=== PATIENT | female | born 1995 | race Caucasian/White ===

== ENCOUNTER 2023-03-09 12:36 | Emergency (ER) | payer MEDICAID, SELFPAY ==
[2023-03-09 12:50] VITALS: BP 126/72; PULSE 82; RESP 20; TEMP 36.7; O2SAT 100; BMI 46.1
[2023-03-09 13:16] LABS: Bilirubin Urine NEGATIVE (NEGATIVE); Blood Urine NEGATIVE (NEGATIVE); Clarity Urine CLEAR (CLEAR); Color Urine YELLOW (YELLOW); Glucose Urine UA NEGATIVE (NEGATIVE); Ketones Urine 15 mg/dL (NEGATIVE); Leukocyte Esterase Urine NEGATIVE (NEGATIVE); Nitrite Urine NEGATIVE (NEGATIVE); Protein Urine NEGATIVE (NEG/TRACE); Specific Gravity Urine >=1.030 (1.005-1.025); Urobilinogen Urine 0.2 EU/dL (0.2-1.0)
[2023-03-09 13:19] LABS: HCG Qualitative Urine* POSITIVE (NEGATIVE); Urine Microscopic Indicated NO
--- NOTE | 2023-03-09 13:35 | US_ITS ---
[address] [address] Patient Name: THERESA SU MRN: [id number] date: 1995 Sex: F Assigned Patient Location: ED.MAIN Current Patient Location: ER Accession/Order Number: [id number] Exam Date: 03/09/2023 13:36 Report Date: 03/09/2023 14:21 At the request of: AUSTIN MCHUGH Procedure: US OB transvaginal EXAMINATION: US OB transvaginal HISTORY: abdominal pain COMPARISON: No relevant comparison available. FINDINGS: Anguiano intrauterine gestation Gestational sac: 3.92 cm, 9 weeks 2 days CRL: 2.3 cm centimeters, 9 weeks 0 days Yolk sac: 2.5 mm Heart rate: 166 bpm Cervix: Closed, 3.8 cm The uterus is normal in appearance. The ovaries are normal in appearance. Clinical age: 9 weeks 5 days Clinical ASHLEY: 10/07/2023 Ultrasound age: 9 weeks 0 days Ultrasound ASHLEY: 10/12/2023 US/US OB transvaginal IMPRESSION: Viable anguiano intrauterine gestation measuring 9 weeks 0 days Electronically authenticated by: DIAMANTE ALDRICH Date: 03/09/2023 14:21
--- NOTE | 2023-03-09 13:39 | ED.GENADUL1 ---
HPI - General Adult General Chief complaint: Abdominal Pain Stated complaint: STOMACH PAIN Time Seen by Provider: 03/09/23 13:26 Source: patient Mode of arrival: walk-in Limitations: no limitations History of Present Illness HPI narrative: Patient is a 27-year-old female presents to the Emergency Room with concerns of nausea and vomiting. Patient states for the past few days she has had heightened sensitivity to smells which leads to nausea and vomiting. She denies diarrhea. She's had abdominal cramping on and off with symptoms. She denies any vaginal discharge or drainage. States she has not had a menstrual cycle in two months. Patient is with urine test today positive last menstrual cycle 01/04/23 estimated at nine weeks one day. Patient denies any chest pain or shortness of breath. Admits to having 1st trimester nausea and vomiting with prior pregnancies. She appears no distress but reports minimal appetite today. Related Data Home Medications Medication Instructions Recorded Confirmed No Known Home Medications 03/09/23 03/09/23 Previous Rx's Medication Instructions Recorded ondansetron HCl 4 mg tablet 4 mg PO Q6H PRN nausea and 03/09/23 vomiting #12 tabs Allergies Allergy/AdvReac Type Severity Reaction Status Date / Time No Known Drug Allergies Allergy Verified 03/09/23 12:49 Review of Systems ROS Constitutional Denies: fever or chills Eyes Denies: change in vision or blurry vision Ears, nose, mouth, and throat Denies: throat pain or neck pain Cardiovascular Denies: chest pain or palpitations Respiratory Denies: shortness of breath or cough Gastrointestinal Reports: abdominal pain, nausea and vomiting Genitourinary Denies: painful urination Musculoskeletal Denies: back pain Integumentary/Breast Denies: rash Neurological Denies: headache Psychiatric Denies: anxiety Allergic/Immunologic Denies: hives PFSH PFSH Social History Smoking status: Heavy tobacco smoker Exam Narrative Exam Narrative: Nurses notes and vital signs reviewed and patient is not hypoxic. General: The patient appears well and in no apparent distress. Patient is resting comfortably on cart. Skin: Warm, dry, no pallor noted. No evidence of rash Head: Normocephalic, atraumatic Neck: Supple, trachea mid-line, no tenderness, no lymphadenopathy Eye: Pupils are equal, round and reactive to light, EOMI Ears, Nose, Mouth, and Throat: TM are clear, normal light reflex, oral mucosa is moist, no posterior oropharynx erythema or hypertrophy, uvula is mid-line Cardiovascular: Regular Rate and Rhythm Respiratory: Patient is in no distress, no accessory muscle use, lungs are clear to auscultation, no wheezing, rales or rhonchi. Chest Wall: no tenderness Back: non-tender, no CVA tenderness Musculoskeletal: normal ROM, no tenderness, no swelling GI: Normal bowel sounds, no tenderness to palpation, no masses appreciated. No rebound, guarding, or rigidity noted. Neurological: A&O x4 Psychiatric: Cooperative Constitutional Vital Signs, click to edit/add: Last Vital Signs Temp 98.1 F 03/09/23 12:50 Pulse 82 03/09/23 12:50 Resp 20 03/09/23 12:50 BP 126/72 03/09/23 12:50 Pulse Ox 100 03/09/23 12:50 O2 Del Method Room Air 03/09/23 12:50 Course Vital Signs Vital signs: Vital Signs Temperature 98.1 F 03/09/23 12:50 Pulse Rate 82 03/09/23 12:50 Respiratory Rate 20 03/09/23 12:50 Blood Pressure 126/72 03/09/23 12:50 Pulse Oximetry 100 03/09/23 12:50 Oxygen Delivery Method Room Air 03/09/23 12:50 Temperature 98.1 F 03/09/23 12:50 Pulse Rate 82 03/09/23 12:50 Respiratory Rate 20 03/09/23 12:50 Blood Pressure 126/72 03/09/23 12:50 Pulse Oximetry 100 03/09/23 12:50 Oxygen Delivery Method Room Air 03/09/23 12:50 Medical Decision Making [facility] Narrative Medical decision making narrative: Patient presents with nausea and vomiting presumably in 1st trimester . Patient was unaware that she was , quantitative hCG ordered along with ultrasound given abdominal cramping. Patient medicated with IV fluids 1 L and Zofran 4 mg with risks and benefits discussed at bedside. Lab Data Labs: Lab Results 03/09/23 03/09/23 Range/Units 12:57 13:50 WBC 12.4 H (4.0-11.0) 10^3/uL RBC 3.91 L (4.20-5.40) 10^6/uL Hgb 12.7 (12.0-16.0) g/dL Hct 36.9 (36.0-48.0) % MCV 94.4 (81.0-99.0) fL MCH 32.5 (26.7-34.0) pg MCHC 34.4 (29.9-35.2) g/dL RDW 12.6 (11.0-15.0) % Plt Count 236 (150-450) 10^3/uL MPV 10.9 (9.5-13.5) fL Neut % (Auto) 78.3 H (43.0-75.0) % Lymph % (Auto) 12.3 L (20.5-60.0) % Glasscock % (Auto) 7.8 (1.7-12.0) % Eos % (Auto) 1.1 (0.9-7.0) % Baso % (Auto) 0.2 (0.2-2.0) % Neut # (Auto) 9.7 H (1.4-6.5) 10^3/uL Lymph # (Auto) 1.5 (1.2-3.8) 10^3/uL Glasscock # (Auto) 1.0 H (0.3-0.8) 10^3/uL Eos # (Auto) 0.1 (0.0-0.7) 10^3/uL Baso # (Auto) 0.0 (0.0-0.1) 10^3/uL Abs Immat Gran (auto) 0.04 H (0.00-0.03) 10^3/uL Imm/Tot Granulo (auto) 0.3 (0.0-0.5) % Sodium 135 L (136-145) mmol/L Potassium 3.5 (3.5-5.1) mmol/L Chloride 102 (98-107) mmol/L Carbon Dioxide 23.5 (21.0-32.0) mmol/L Anion Gap 13.0 BUN 7.0 (7.0-18.0) mg/dL Creatinine 0.65 (0.55-1.02) mg/dL Est GFR ( Amer) >60 (>=60) Est GFR (Non-Af Amer) >60 (>=60) BUN/Creatinine Ratio 10.8 Glucose 90 (74-106) mg/dL Calcium 8.8 (8.5-10.1) mg/dL Total Bilirubin 0.6 (0.2-1.0) mg/dL AST 14 L (15-37) U/L ALT 21 (14-59) U/L Alkaline Phosphatase 74 (46-116) U/L Total Protein 6.9 (6.4-8.2) g/dL Albumin 3.5 (3.4-5.0) g/dL Globulin 3.4 g/dL Albumin/Globulin Ratio 1.0 Lipase 67.0 L (73.0-393.0) U/L HCG, Quant 02465 mIU/mL Urine Color Yellow (YELLOW) Urine Clarity Clear (CLEAR) Urine pH 6.0 (5.0-9.0) Ur Specific Whitwell >=1.030 A (1.005-1.025) Urine Protein Negative (NEG/TRACE) mg/dL Urine Glucose (UA) Negative (NEGATIVE) mg/dL Urine Ketones 15 A (NEGATIVE) mg/dL Urine Occult Blood Negative (NEGATIVE) Urine Nitrite Negative (NEGATIVE) Urine Bilirubin Negative (NEGATIVE) Urine Urobilinogen 0.2 (0.2-1.0) EU/dL Ur Leukocyte Esterase Negative (NEGATIVE) Urine HCG, Qual Positive A (NEGATIVE) Imaging Data US - abdomen: Radiologist's impression: Procedure: US OB transvaginal EXAMINATION: US OB transvaginal HISTORY: abdominal pain COMPARISON: No relevant comparison available. FINDINGS: Gutiérrez intrauterine gestation Gestational sac: 3.92 cm, 9 weeks 2 days CRL: 2.3 cm centimeters, 9 weeks 0 days Yolk sac: 2.5 mm Heart rate: 166 bpm Cervix: Closed, 3.8 cm The uterus is normal in appearance. The ovaries are normal in appearance. Clinical age: 9 weeks 5 days Clinical ASHLEY: 10/07/2023 Ultrasound age: 9 weeks 0 days Ultrasound ASHLEY: 10/12/2023 IMPRESSION: Viable gutiérrez intrauterine gestation measuring 9 weeks 0 days Electronically authenticated by: DIAMANTE ALDRICH Date: 03/09/2023 14:21 Discharge Plan Discharge Chief Complaint: Abdominal Pain Clinical Impression: Nausea and vomiting in Patient Disposition: Home, Self-Care Time of Disposition Decision: 14:54 Condition: Good Mode of Transportation: Private Vehicle Prescriptions / Home Meds: New ondansetron HCl 4 mg tablet 4 mg PO Q6H PRN (Reason: nausea and vomiting) Qty: 12 0RF No Action No Known Home Medications Instructions: Nausea and Vomiting in (ED) Stand Alone Forms: Portal Instructions Referrals: Luis Majano DO [Physician] - 1 week Discharge Date/Time: 03/09/23 15:13
[2023-03-09] MEDS: 0.9 % SODIUM CHLORIDE 1,000 ML 999 ML IV (13:50)
[2023-03-09] MEDS: ONDANSETRON PF 4 MG/2 ML VIAL IV (13:51)
[2023-03-09 14:36] LABS: Basophils Percent Auto 0.2 % (0.2-2.0); Eosinophils Absolute Auto 0.1 10^3/uL (0.0-0.7); Eosinophils Percent Auto 1.1 % (0.9-7.0); Hematocrit 36.9 % (36.0-48.0); Hemoglobin 12.7 g/dL (12.0-16.0); Immature Granulocytes Abs Auto 0.04 10^3/uL (0.00-0.03); Immature Granulocytes Pct Auto 0.3 % (0.0-0.5); Lymphocytes Absolute Auto 1.5 10^3/uL (1.2-3.8); Lymphocytes Percent Auto 12.3 % (20.5-60.0); Mean Corpuscular HGB Conc 34.4 g/dL (29.9-35.2); Mean Corpuscular Hemoglobin 32.5 pg (26.7-34.0); Mean Corpuscular Volume 94.4 fL (81.0-99.0); Mean Platelet Volume 10.9 fL (9.5-13.5); Monocytes Percent Auto 7.8 % (1.7-12.0); Neutrophils Absolute Auto 9.7 10^3/uL (1.4-6.5); Neutrophils Percent Auto 78.3 % (43.0-75.0); Platelet Count 236 10^3/uL (150-450); Red Blood Count 3.91 10^6/uL (4.20-5.40); Red Cell Distribution Width 12.6 % (11.0-15.0); White Blood Count 12.4 10^3/uL (4.0-11.0)
[2023-03-09 14:58] LABS: Alanine Aminotransferase 21 U/L (14-59); Albumin Level 3.5 g/dL (3.4-5.0); Alkaline Phosphatase 74 U/L (46-116); Aspartate Amino Transferase 14 U/L (15-37); BUN Creatinine Ratio 10.8; Bilirubin Total 0.6 mg/dL (0.2-1.0); Calcium 8.8 mg/dL (8.5-10.1); Carbon Dioxide 23.5 mmol/L (21.0-32.0); Chloride 102 mmol/L (98-107); Estimated GFR (African America >60 (>=60); Estimated GFR (Non-African Ame >60 (>=60); Globulin 3.4 g/dL; Glucose 90 mg/dL (74-106); Potassium 3.5 mmol/L (3.5-5.1); Sodium 135 mmol/L (136-145); Total Protein 6.9 g/dL (6.4-8.2)
== END 2023-03-09 15:13 | disposition home or self-care (01) ==
PROVIDERS: Personal Emergency Response Attendant; Emergency Provider Emergency Medicine Emergency Medical Services
DX: O26.891 Other specified pregnancy related conditions, first trimester (principal); R11.2 Nausea with vomiting, unspecified; O99.331 Smoking (tobacco) complicating pregnancy, first trimester; F17.210 Nicotine dependence, cigarettes, uncomplicated; Z3A.09 9 weeks gestation of pregnancy
CPT/HCPCS: 36415; 76817; 80053; 81003; 83690; 84702; 84703; 85025; 96361; 96374; 99285

== ENCOUNTER 2023-03-13 12:24 | Outpatient (RCR) | payer BC, MEDICAID, SELFPAY ==
[2023-03-15 14:21] LABS: HCG Quantitative 27211 mIU/mL
== END 2023-03-22 17:49 | disposition home or self-care (01) ==
LOC: LAB 12:24
PROVIDERS: Visit Provider Obstetrics & Gynecology
DX: N92.6 Irregular menstruation, unspecified (principal)
CPT/HCPCS: 36415; 84702

== ENCOUNTER 2023-03-17 14:00 | Outpatient (OUT) | payer MEDICAID, SELFPAY ==
--- NOTE | 2023-03-17 14:03 | US_ITS ---
[address] [address] Patient Name: THERESA SU MRN: [id number] date: 1995 Sex: F Assigned Patient Location: US Current Patient Location: Accession/Order Number: [id number] Exam Date: 03/17/2023 14:10 Report Date: 03/19/2023 17:05 At the request of: WENCESLAO FRASER Procedure: US OB transvaginal EXAMINATION: US OB transvaginal HISTORY: MISSED MENSES N92.6 HX OF MISCARRIAGE Z87.59 COMPARISON: 03/09/2023 FINDINGS: Anguiano intrauterine gestation Gestational sac: 4.35 cm, 9 weeks 6 days CRL: 3.3 cm, 10 weeks 2 days Yolk sac: 3.9 mm Heart rate: 153 beats minute The uterus is normal, anteverted, retroflexed The right ovary is not visualized. The left ovary is normal Cervix: Closed, 4.1 cm, small amount of fluid identified within the endocervical canal Clinical age: 10 weeks 6 days Clinical ASHLEY: 10/07/2023 Ultrasound age: 10 weeks 1 day Ultrasound ASHLEY: 10/12/2023 US/US OB transvaginal IMPRESSION: Viable anguiano intrauterine gestation measuring 10 weeks 1 day Electronically authenticated by: DIAMANTE ALDRICH Date: 03/19/2023 17:05
== END 2023-03-17 14:01 | disposition home or self-care (01) ==
LOC: US 14:01
PROVIDERS: Visit Provider Obstetrics & Gynecology
DX: Z34.91 Encounter for supervision of normal pregnancy, unspecified, first trimester (principal); N92.6 Irregular menstruation, unspecified; Z87.59 Personal history of other complications of pregnancy, childbirth and the puerperium
CPT/HCPCS: 76817

== ENCOUNTER 2023-04-06 10:46 | Outpatient (OUT) | payer BC, MEDICAID, SELFPAY ==
[2023-04-06 11:48] LABS: Basophils Percent Auto 0.2 % (0.2-2.0); Eosinophils Absolute Auto 0.2 10^3/uL (0.0-0.7); Eosinophils Percent Auto 1.9 % (0.9-7.0); Hematocrit 34.2 % (36.0-48.0); Hemoglobin 11.6 g/dL (12.0-16.0); Immature Granulocytes Abs Auto 0.04 10^3/uL (0.00-0.03); Immature Granulocytes Pct Auto 0.3 % (0.0-0.5); Lymphocytes Absolute Auto 2.3 10^3/uL (1.2-3.8); Lymphocytes Percent Auto 17.9 % (20.5-60.0); Mean Corpuscular HGB Conc 33.9 g/dL (29.9-35.2); Mean Corpuscular Hemoglobin 32.9 pg (26.7-34.0); Mean Corpuscular Volume 96.9 fL (81.0-99.0); Mean Platelet Volume 11.2 fL (9.5-13.5); Neutrophils Absolute Auto 9.1 10^3/uL (1.4-6.5); Neutrophils Percent Auto 71.7 % (43.0-75.0); Platelet Count 228 10^3/uL (150-450); Red Blood Count 3.53 10^6/uL (4.20-5.40); Red Cell Distribution Width 12.9 % (11.0-15.0); White Blood Count 12.7 10^3/uL (4.0-11.0)
[2023-04-06 11:56] LABS: Estimated Average Glucose 103 mg/dL; Glycohemoglobin A1C 5.2 % (4.5-6.2)
[2023-04-06 11:59] LABS: BOX Test Sent Out Y
[2023-04-06 12:35] LABS: Thyroid Stimulating Hormone 1.795 uIU/mL (0.358-3.740)
[2023-04-07 06:09] LABS: HBsAg Screen Negative (Negative); HCV Ab Non Reactive (Non Reactive); HIV Ab/p24 Ag Screen Non Reactive (Non Reactive); Rubella Antibodies, IgG 3.26 index (Immune >0.99)
[2023-04-07 10:08] LABS: Rapid Plasma Reagin, Quant Non Reactive titer (NonRea<1:1)
== END 2023-04-06 10:47 | disposition home or self-care (01) ==
LOC: LAB 10:48
PROVIDERS: Visit Provider Obstetrics & Gynecology
DX: Z34.80 Encounter for supervision of other normal pregnancy, unspecified trimester (principal); N92.6 Irregular menstruation, unspecified
CPT/HCPCS: 36415; 83036; 84443; 85025; 86592; 86762; 86803; 86850; 86900; 86901; 87086; 87340; 87389

== ENCOUNTER 2023-05-09 10:56 | Outpatient (OUT) | payer MEDICAID, SELFPAY ==
[2023-10-19 10:46] LABS: Results Report
[2023-10-19 10:47] LABS: Insulin Dep Diabetes No; OSBR Risk 1 IN 1802
== END 2023-05-09 10:57 | disposition home or self-care (01) ==
LOC: LAB 10:58
PROVIDERS: Visit Provider Obstetrics & Gynecology
DX: Z34.92 Encounter for supervision of normal pregnancy, unspecified, second trimester (principal)
CPT/HCPCS: 36415; 82105

== ENCOUNTER 2023-05-09 21:41 | Outpatient (REF) | payer BC, MEDICAID, SELFPAY ==
[2023-05-14 12:12] LABS: Age Gdln ACOG Testing Note (.); IGP, rfx Aptima HPV ASCU Note (.)
== END 2023-05-09 21:42 | disposition home or self-care (01) ==
LOC: LAB 21:41
PROVIDERS: Visit Provider Obstetrics & Gynecology
DX: Z34.92 Encounter for supervision of normal pregnancy, unspecified, second trimester (principal); Z01.419 Encounter for gynecological examination (general) (routine) without abnormal findings
CPT/HCPCS: 36415; 82105; G0145

== ENCOUNTER 2023-07-11 13:35 | Observation (INO) | payer BC, MEDICAID, SELFPAY ==
[2023-07-11 13:57] VITALS: BP 124/59; PULSE 78
== END 2023-07-11 15:40 | disposition home or self-care (01) ==
LOC: FBC 13:38
PROVIDERS: Admitting Provider Obstetrics & Gynecology; Visit Provider Obstetrics & Gynecology
DX: O36.8190 Decreased fetal movements, unspecified trimester, not applicable or unspecified (principal); Z3A.00 Weeks of gestation of pregnancy not specified
CPT/HCPCS: 59025; G0378; G0379

== ENCOUNTER 2023-07-28 10:45 | Outpatient (OUT) | payer BC, MEDICAID, SELFPAY ==
--- OUTSIDE RECORDS SUMMARY | 2023-07-28 10:50 | XMS_ITS | CCD ---
Author Name Unknown Address [address] [place] [address] [address] [place] [address] Organization [facility] Care Team Providers Care Hemmer Lockstitch Name Role Phone [facility] Primary Care Unavailable MAREK FLOOD Admitting Unavailable MAREK FLOOD Attending Unavailable MAREK FLOOD Consulting Unavailable [facility] Primary Care Unavailable EB GRANT Admitting Unavailable EB GRANT Attending Unavailable EB GRANT Consulting Unavailable YOHANA UGALDE Consulting Unavailable MELANIE CHOU Attending Unavailable WENCESLAO FRASER Attending Unavailable Problems Active Problems Problem Classification Problem Date Documented Da te Episodic/Chronic Asthma (2 sources) Unspecified asthma, uncomplicated; Translations: [UNSPECIFIED ASTHMA UNCOMPLICATED] Onset: 03-07-2022 Chronic Other aftercare (1 source) Other long term care administrator (current) drug therapy; Translations: [OTH INVESTIGATIVE ANALYST CURRENT DRUG THERAPY] Onset: 09-05-2022 Episodic Other aftercare (1 source) long term care administrator (current) use of oral hypoglycemic drugs; Translations: [INVESTIGATIVE ANALYST USE ORAL HYPOGLYCEMIC DX] Onset: 09-05-2022 Episodic Substance-related disorders (1 source) Nicotine dependence, cigarettes, uncomplicated; Translations: [NICOTINE DEPEND CIGARETTES UNCOMP] Onset: 09-05-2022 Chronic Unclassified (3 sources) LOW BACK PAIN, UNSPECIFIED; Translations: [LOW BACK PAIN, UNSPECIFIED] Onset: 09-05-2022 Unclassified (2 sources) COUGH, UNSPECIFIED; Translations: [COUGH, UNSPECIFIED] Onset: 03-07-2022 Unclassified (1 source) CONTACT W/AND (SUSP) EXPOS COVID-19; Translations: [CONTACT W/AND (SUSP) EXPOS COVID-19] Onset: 03-07-2022 Viral infection (1 source) Disease caused by 2019-nCoV; Translations: [UNVACCINATED COVID 19] Onset: 03-07-2022 Past or Other Problems Problem Classification Problem Date Documented Da te Episodic/Chronic Unclassified (1 source) LOW BACK PAIN, UNSPECIFIED; Translations: [LOW BACK PAIN, UNSPECIFIED] Onset: 09-03-2022 Unclassified (1 source) COUGH, UNSPECIFIED; Translations: [COUGH, UNSPECIFIED] Onset: 03-06-2022 Results Test Name Value Interpretation Reference Range Facil ity Covid-19 PCR (CVDTB)on 02-20 SARS-CoV-2 (COVID-19) RNA HERIBERTO+probe Ql (Unsp spec) Not detected Normal NOT DETECTED [facility] Comment on above: Result Comment: When diagnostic testing is negative, the possibility of a false negative should be considered in the context of a patient's recent exposures and the presence of clinical signs and symptoms consistent with SARS-CoV-2. This test is not yet approved or cleared by the [place] FDA. When there are no FDA-approved or cleared tests available, and other criteria are met, FDA can make tests available under an emergency access mechanism called an Emergency Use Authorization (EUA). The EUA for this test is supported by the [place] of Health and Human Service's declaration that circumstances exist to justify the emergency use of in vitro diagnostics for the detection and/or diagnosis of the virus that causes COVID-19. This EUA will remain in effect for the duration of the COVID-19 declaration justifying emergency of IVDs, unless it is terminated or revoked by the FDA (after which the test may no longer be used). Performed By: #### C VDTBH #### [facility] [address] [place] [address] Dr. Rian Vega INFLUENZA A AND B AGon 03-06 INFLUANEGH SEE BELOW Normal [facility] Comment on above: Result Comment: Nega tive for Flu A protein angiten. Infection due to Flu A cannot be ruled out. Flu A angiten in the sample may be below the detection limit of the test. Performed By: #### I NFLUAB #### [facility] [address] [place] [address] Dr. Rian Vega INFLUBNEG SEE BELOW Normal [facility] Comment on above: Result Comment: Nega tive for Flu B protein antigen. Infection due to Flu B cannot be ruled out. Flu B antigen in the sample may be below the detection limit of the test. Performed By: #### I NFLUAB #### [facility] [address] [address] [address] Rian Vega INFLUENZA A AG Negative Normal NEGATIVE SEE COMMENT [facility] Comment on above: Performed By: #### I NFLUAB #### [facility] [address] [address] [address] Rian Vega INFLUENZA B AG Negative Normal NEGATIVE SEE COMMENT [facility] Comment on above: Performed By: #### I NFLUAB #### [facility] [address] [address] [address] Rian Vega INTERNAL CONTROLS Within Normal Limits Normal Wi thin Normal Limits [facility] Comment on above: Performed By: #### I NFLUAB #### [facility] [address] [place] [address] Dr. Rian Vega URon 03-06-2022 , QUAL Negative Normal NEGATIVE [facility] Comment on above: Performed By: #### P REGU #### [facility] [address] [place] [address] Dr. Rian Vega Encounters Encounter Date Encounter Type Care Provider Facility Start: 07-12-2023 End: 07-12-2023 ambulatory WENCESLAO FRASER Not Available Start: 06-06-2023 End: 06-06-2023 ambulatory MELANIE CHOU Not Available Start: 09-03-2022 End: 09-03-2022 ambulatory [facility] Facili ty:H1 Start: 03-06-2022 End: 03-06-2022 ambulatory [facility] Facili ty:H1 Payers Date Payer Category Payer Unknown [id number] 2022 Unknown [id number] 1995 Unknown [id number] 1995 Unknown [id number] 1995 Unknown [id number] 1995 Unknown [id number] 1959 Unknown [id number] Self-pay Self Pay [id number] Unknown Self Pay [id number] Social History Date Type Detail Facility Tobacco smoking stat [facility] Unknown if ever smoked [facility] Start: 1995 Sex Assigned At Female F [facility] Clinical Note 03-06-2022 Note Date & Type Note Facility 03-06-2022 Note PROCEDURE: XR CHEST 2 V REASON FOR STUDY/CLINICAL HISTORY: COUGH. COMPARISON STUDY: None available at time of dictation. TECHNIQUE: Frontal and lateral view(s) of the chest presented for interpretation. FINDINGS: No acute cardiopulmonary process. Very subtle left basilar atelectasis and lingular atelectatic change laterally. Trace atelectasis at the right lung base is also noted. Subtle areas of associated bronchial thickening at the right greater than left hilar region may be present. The costophrenic sulci are sharp on the lateral view. Normal cardiomediastinal silhouette. No focal consolidation, edema, or large pleural effusion. No pneumothorax. No acute appearing focal significant bony abnormality. IMPRESSION: Mild bronchial thickening as described with subtle adjacent atelectatic change. No consolidation, large pleural effusion, or pneumothorax. Electronically authenticated by: YOHANA UGALDE Date: 2022-03-06 01:53 [facility] Evaluation note Note Date & Type Note Facility Evaluation note No assessment information availa ble [facility] Summary Purpose Family History No Family History Records FoundNo Family History Records Found Advance Directives No Advanced Directives Records FoundNo Advanced Directives Records Found Additional Source Comments Goals (unrecognized section and content) Goals may be documented in a n alternate section INFORMATION SOURCE (unrecogn ized section and content) DATE CREATED AUTHOR 09/28/2022 [facility] DATE CREATED AUTHOR AUTHOR'S ANA FAYE 07/13/2023 [facility] FOR RECORDS PERTAINING TO PATIENTS WHO ARE OR HAVE BEEN ENROLLED IN A CHEMICAL DEPENDENCY/SUBSTANCEABUSE PROGRAM, SOME INFORMATION MAY BE OMITTED. This clinical summary was aggregated from multiple sources. Caution should be exercised in using it in the provision of clinical care. This summary normalizes information from multiple sources, and as a consequence, information in this document may materially change the coding, format and clinical context of patient data. In addition, data may be omitted in some cases. CLINICAL DECISIONS SHOULD BE BASED ON THE PRIMARY CLINICAL RECORDS. [facility] [email or web address] provides no warranty or guarantee of the accuracy or completeness of information in this document.
[2023-07-28 12:00] LABS: Basophils Percent Auto 0.2 % (0.2-2.0); Eosinophils Absolute Auto 0.1 10^3/uL (0.0-0.7); Eosinophils Percent Auto 1.2 % (0.9-7.0); Hemoglobin 11.2 g/dL (12.0-16.0); Immature Granulocytes Abs Auto 0.04 10^3/uL (0.00-0.03); Immature Granulocytes Pct Auto 0.4 % (0.0-0.5); Lymphocytes Absolute Auto 1.8 10^3/uL (1.2-3.8); Lymphocytes Percent Auto 18.3 % (20.5-60.0); Mean Corpuscular HGB Conc 32.9 g/dL (29.9-35.2); Mean Corpuscular Hemoglobin 33.2 pg (26.7-34.0); Mean Corpuscular Volume 100.9 fL (81.0-99.0); Mean Platelet Volume 11.1 fL (9.5-13.5); Monocytes Absolute Auto 0.6 10^3/uL (0.3-0.8); Monocytes Percent Auto 5.8 % (1.7-12.0); Neutrophils Absolute Auto 7.2 10^3/uL (1.4-6.5); Neutrophils Percent Auto 74.1 % (43.0-75.0); Platelet Count 190 10^3/uL (150-450); Red Blood Count 3.37 10^6/uL (4.20-5.40); Red Cell Distribution Width 12.5 % (11.0-15.0); White Blood Count 9.7 10^3/uL (4.0-11.0)
[2023-07-28 12:17] LABS: Glucose 1 Hour 132 mg/dL
== END 2023-07-28 10:46 | disposition home or self-care (01) ==
PROVIDERS: Visit Provider Physician Assistant
DX: Z34.92 Encounter for supervision of normal pregnancy, unspecified, second trimester (principal)
CPT/HCPCS: 36415; 82950; 85025

== ENCOUNTER 2023-08-01 08:59 | Outpatient (OUT) | payer BC, MEDICAID, SELFPAY ==
--- NOTE | 2023-08-01 09:01 | US_ITS ---
The [address] [address] Patient Name: THERESA SU MRN: [id number] date: 1995 Sex: F Assigned Patient Location: Current Patient Location: Accession/Order Number: [id number] Exam Date: 08/01/2023 09:01 Report Date: 08/01/2023 09:30 At the request of: WENCESLAO FRASER Procedure: US OB growth EXAMINATION: US OB growth HISTORY: LGA COMPARISON: No relevant comparison available. FINDINGS: Heart Rate: 132.0 bpm Number: 1.0 Position: CEPHALIC Amniotic Fluid Volume: 15.8 cm Maximum Vertical Pocket: 5.4 cm BIOMETRY: BPD: 7.6 cm cm; 30 weeks 3 days; 57% HC: 28.6 cmcm; 31 weeks 3 days; 62% AC: 27.3 cm cm; 31 weeks 3 days; 86% FL: 6.1 cm cm; 31 weeks 5 days; 84% EFW: 1762.2 grams; 88% FL/AC: 22.3 FL/BPD: 80.4 HC/AC: 1.1 GESTATIONAL AGE: Age by EDC: 29 weeks 6 days ASHLEY by EDC: 10/11/2023 Age by US: 31 weeks 2 days ASHLEY by US: 10/01/2023 US/US OB growth IMPRESSION: 1. Single live intrauterine with growth detailed above. Electronically authenticated by: YOANA MELGOZA Date: 08/01/2023 09:30
--- OUTSIDE RECORDS SUMMARY | 2023-08-01 09:11 | XMS_ITS | CCD ---
Author Name Unknown Address [address] [place] [address] Organization [facility] Care Team Providers Care Grounds Caretaker Name Role Phone [facility] Primary Care Unavailable HERIBERTO ., MAREK Admitting Unavailable HERIBERTO ., MAREK Attending Unavailable HERIBERTO ., MAREK Consulting Unavailable [facility] Care Unavailable EB GRANT Admitting Unavailable EB GRANT Attending Unavailable EB GRANT Consulting Unavailable YOHANA UGALDE Unavailable MELANIE CHOU Attending Unavailable MELANIE CHOU Attending Unavailable WENCESLAO FRASER Attending Unavailable Problems Active Problems Problem Classification Problem Date Documented Da te Episodic/Chronic Asthma (2 sources) Unspecified asthma, uncomplicated; Translations: [UNSPECIFIED ASTHMA UNCOMPLICATED] Onset: 03-07-2022 Chronic Other aftercare (1 source) Other skilled nursing (current) drug therapy; Translations: [OTH FDC CURRENT DRUG THERAPY] Onset: 09-05-2022 Episodic Other aftercare (1 source) custodial (current) use of oral hypoglycemic drugs; Translations: [FDC USE ORAL HYPOGLYCEMIC DX] Onset: 09-05-2022 Episodic [...] spec) Not detected Normal NOT DETECTED [facility] Comment on above: Result Comment: When diagnostic [...] for this test is supported by the [place] of Health and Human Service's declaration that [...] used). Performed By: #### C VDTBH #### [facility] [address] [place] [address] Dr. Rian Vega INFLUENZA A AND B AGon 03-06 INFLUANEGH SEE BELOW Normal [facility] Comment on above: Result Comment: Nega tive for Flu A protein angiten. Infection due to Flu A cannot be ruled out. Flu A angiten in the sample may be below the detection limit of the test. Performed By: #### I NFLUAB #### [facility] [address] [place] [address] Dr. Rian Vega INFLUBNEGH SEE BELOW Normal [facility] Comment on above: Result Comment: Nega tive for Flu B protein antigen. Infection due to Flu B cannot be ruled out. Flu B antigen in the sample may be below the detection limit of the test. Performed By: #### I NFLUAB #### [facility] [address] [address] [address] Rian Vega INFLUENZA A AG Negative Normal NEGATIVE SEE COMMENT [facility] Comment on above: Performed By: #### I NFLUAB #### [facility] [address] [address] [address] Rian Vega INFLUENZA B AG Negative Normal NEGATIVE SEE COMMENT [facility] Comment on above: Performed By: #### I NFLUAB #### [facility] [address] [place] [address] Dr. Rian Vega INTERNAL CONTROLS Within Normal Limits Normal Wi thin Normal Limits [facility] Comment on above: Performed By: #### I NFLUAB #### [facility] [address] [address] [address] Rian Vega URon 03-06-2022 , QUAL Negative Normal NEGATIVE [facility] Comment on above: Performed By: #### P REGU #### [facility] [address] [place] [address] Dr. Rian Vega Encounters Encounter Date Encounter Type Care Provider Facility Start: 07-30-2023 End: 07-30-2023 ambulatory MELANIE CHOU Not Available Start: 07-12-2023 End: 07-12-2023 ambulatory WENCESLAO FRASER Not Available Start: 06-06-2023 End: 06-06-2023 ambulatory MELANIE JOSÉ ANTONIO Not Available Start: 09-03-2022 End: 09-03-2022 ambulatory [facility] ty:H[facility] Start: 03-06-2022 End: 03-06-2022 ambulatory [facility] Facili ty:H1 Payers Date Payer Category Payer Unknown [id number] 2022 Unknown [id number] 1995 Unknown [id number] 2.16.84 [id number] 1993 Unknown [id number] 2.16.84 [id number] 1993 Unknown [id number] 2.16.840 .[id number] 1993 Unknown [id number] 2.16.840 .[id number] 1993 Unknown [id number] 2.16.840. [id number] 1959 Unknown [id number] Self-pay Self Pay [id number] Unknown Self Pay [id number] Social History Date Type Detail Facility Tobacco smoking stat [facility] Unknown if ever smoked [facility] Start: 1995 Sex Assigned At Female F [facility] Clinical Note 03-06-2022 Note Date & [...] by: YOHANA UGALDE Date: 2022-03-06 01:53 [facility] Evaluation note Note Date & Type Note Facility Evaluation note No assessment information availa [facility] Summary Purpose Family History No Family History Records FoundNo Family History Records Found Advance Directives No Advanced Directives Records FoundNo Advanced Directives Records Found Additional Source Comments Goals (unrecognized section and content) Goals may be documented in a n alternate section INFORMATION SOURCE (unrecogn ized section and content) DATE CREATED AUTHOR 09/28/2022 [facility] DATE CREATED AUTHOR AUTHOR'S ORGANIZ ATION 07/31/2023 [facility] EPIC FOR RECORDS PERTAINING TO PATIENTS WHO ARE [...] BE BASED ON THE PRIMARY CLINICAL RECORDS. [facility] [employer] provides no warranty or guarantee of the accuracy or completeness of information in this document.
== END 2023-08-01 09:00 | disposition home or self-care (01) ==
LOC: US 08:59
PROVIDERS: Visit Provider Obstetrics & Gynecology
DX: O36.63X0 Maternal care for excessive fetal growth, third trimester, not applicable or unspecified (principal); Z3A.29 29 weeks gestation of pregnancy
CPT/HCPCS: 76816

== ENCOUNTER 2023-08-22 07:01 | Outpatient (OUT) | payer BC, MEDICAID, SELFPAY ==
--- OUTSIDE RECORDS SUMMARY | 2023-08-22 07:04 | XMS_ITS | CCD ---
Author Name Unknown Address [address] [place] [address] Organization [facility] Care Team Providers Care Battery Loader Name Role Phone [facility] Primary Care Unavailable HERIBERTO ., MAREK Admitting Unavailable HERIBERTO ., MAREK Attending Unavailable HERIBERTO ., MAREK Consulting Unavailable [facility] Care Unavailable EB GRANT Admitting Unavailable EB GRANT Attending Unavailable EB GRANT Consulting Unavailable YOHANA UGALDE Unavailable MELANIE CHOU Attending Unavailable MELANIE CHOU Attending Unavailable WENCESLAO FRASER Attending Unavailable WENCESLAO FRASER Attending Unavailable Problems Active Problems Problem Classification Problem Date Documented Da te Episodic/Chronic Asthma (2 sources) Unspecified asthma, uncomplicated; Translations: [UNSPECIFIED ASTHMA UNCOMPLICATED] Onset: 03-07-2022 Chronic Other aftercare (1 source) Other [facility] (current) drug therapy; Translations: [OTH RETIREMENT CURRENT DRUG THERAPY] Onset: 09-05-2022 Episodic Other aftercare (1 source) correction (current) use of oral hypoglycemic drugs; Translations: [RETIREMENT USE ORAL HYPOGLYCEMIC DX] Onset: 09-05-2022 Episodic [...] Interpretation Reference Range Facil it[facility] SARS-CoV-2 (COVID-19) RNA HERIBERTO+probe Ql (Unsp spec) Not detected Normal NOT DETECTED [facility] Comment on above: Result Comment: When [...] for this test is supported by the Operations Administrative Assistant of Health and Human Service's declaration that [...] used). Performed By: #### C VDTBH #### [facility] [address] [place] [address] Dr. Rian Vega INFLUENZA A AND B AGon 03-06 INFLUANEGH SEE BELOW Normal [facility] Comment on above: Result Comment: Nega tive for Flu A protein angiten. Infection due to Flu A cannot be ruled out. Flu A angiten in the sample may be below the detection limit of the test. Performed By: #### I NFLUAB #### [facility] [address] [address] [address] Rian Vega INFLUBNEGH SEE BELOW Normal [facility] Comment on above: Result Comment: Nega tive for Flu B protein antigen. Infection due to Flu B cannot be ruled out. Flu B antigen in the sample may be below the detection limit of the test. Performed By: #### I NFLUAB #### [facility] [address] [address] [address] Rian Vega INFLUENZA A AG Negative Normal NEGATIVE SEE COMMENT [facility] Comment on above: Performed By: #### I NFLUAB #### [facility] [address] [address] [address] Rian Vega INFLUENZA B AG Negative Normal NEGATIVE SEE COMMENT [facility] Comment on above: Performed By: #### I NFLUAB #### [facility] [address] [address] [address] Rian Vega INTERNAL CONTROLS Within Normal Limits Normal Wi thin Normal Limits [facility] Comment on above: Performed By: #### I NFLUAB #### [facility] [address] [address] [address] Rian Vega URon 03-06-2022 , QUAL Negative Normal NEGATIVE [facility] Comment on above: Performed By: #### P REGU #### [facility] [address] [address] [address] Rian Vega Encounters Encounter Date Encounter Type Care Provider Facility Start: 08-14-2023 End: 08-14-2023 ambulatory WENCESLAO EVELIO Not Available Start: 07-30-2023 End: 07-30-2023 ambulatory MELANIE CHOU Not Available Start: 07-12-2023 End: 07-12-2023 ambulatory WENCESLAO EVELIO Not Available Start: 06-06-2023 End: 06-06-2023 ambulatory MELANIE JOSÉ ANTONIO Not Available Start: 09-03-2022 End: 09-03-2022 ambulatory [facility] Facili ty:H1 Start: 03-06-2022 End: 03-06-2022 [facility] Payers Date Payer Category Payer Unknown [id number] 2022 Unknown [id number] 1993 Unknown [id number] 2.16.84 [id number] 1993 Unknown [id number] 2.16.84 0.1.791977.3.579.2.593 1993 Unknown [id number] 2.16.84 0.1.192339.3.579.2.1259 1993 Unknown [id number] 2.16.840 .1.366796.3.579.2.1259 1993 Unknown [id number] 2.16.840 .1.901640.3.579.2.1259 1993 Unknown [id number] 2.16.840. [id number] 1959 Unknown [id number] Self-pay Self Pay [id number] Unknown Self Pay [id number] Social History Date Type Detail Facility Tobacco smoking stat [facility] Unknown if ever smoked [facility] Start: 1995 Sex Assigned At Female F [facility] Clinical Note 03-06-2022 Note Date & [...] by: YOHANA UGALDE Date: 2022-03-06 01:53 [facility] Evaluation note Note Date & Type Note Facility Evaluation note No assessment information availa [facility] Summary Purpose Family History No Family History Records FoundNo Family History Records Found Advance Directives No Advanced Directives Records FoundNo Advanced Directives Records Found Additional Source Comments Goals (unrecognized section and content) Goals may be documented in a n alternate section INFORMATION SOURCE (unrecogn ized section and content) DATE CREATED AUTHOR 09/28/2022 [facility] DATE CREATED AUTHOR 'S ORGANIZ ATION 08/15/2023 [facility] dical Specialists EPIC FOR RECORDS PERTAINING [...] BE BASED ON THE PRIMARY CLINICAL RECORDS. [employer] provides no warranty or guarantee of the accuracy or completeness of information in this document.
[2023-08-22 09:09] VITALS: BP 141/71; PULSE 77
--- NOTE | 2023-08-22 09:13 | US_ITS ---
[address] [address] Patient Name: THERESA SU MRN: [facility]:[id number] date: 1995 Sex: F Assigned Patient Location: [facility] Current Patient Location: Accession/Order Number: [id number] Exam Date: 08/22/2023 09:15 Report Date: 08/22/2023 10:07 At the request of: WENCESLAO FRASER Procedure: US OB BPP w non-stress EXAMINATION: US OB BPP w non-stress HISTORY: EXCESSIVE GROWTH O36.63X0 COMPARISON: No relevant comparison available. TECHNIQUE: Ultrasound biophysical profile was performed in the radiology department. non-reactive stress testing was performed by nursing staff in the birthing center. FINDINGS: BREATHING MOVEMENTS: 2.0 GROSS BODY MOVEMENTS: 2.0 TONE: 2.0 QUALITATIVE AMNIOTIC FLUID VOLUME: 2.0 PRESENTATION: CEPHALIC HEART RATE: 137.1 bpm H.B./min AMNIOTIC FLUID VOLUME: 17.3 cm cm GESTATIONAL AGE: 32 weeks 5 days CONCLUSION: Total biophysical profile score: 8.0 Electronically authenticated by: DIAMANTE ALDRICH Date: 08/22/2023 10:07
== END 2023-08-22 09:55 | disposition home or self-care (01) ==
LOC: US 07:03 → FBC 09:06
PROVIDERS: Visit Provider Obstetrics & Gynecology
DX: O36.63X1 Maternal care for excessive fetal growth, third trimester, fetus 1 (principal); Z3A.32 32 weeks gestation of pregnancy
CPT/HCPCS: 76818

== ENCOUNTER 2023-08-25 07:34 | Outpatient (OUT) | payer BC, MEDICAID, SELFPAY ==
--- OUTSIDE RECORDS SUMMARY | 2023-08-25 07:41 | XMS_ITS | CCD ---
Author Name Unknown Address [address] [place] [address] Organization [facility] Care Team Providers Care Addictions Recovery Specialist Name Role Phone [facility] Primary Care Unavailable HERIBERTO ., MAREK Admitting Unavailable HERIBERTO ., MAREK Attending Unavailable HERIBERTO ., MAREK Consulting Unavailable [facility] Care Unavailable EB GRANT Admitting Unavailable EB GRANT Attending Unavailable EB GRANT Consulting Unavailable YOHANA UGALDE Unavailable MELANIE CHOU Attending Unavailable MELANIE CHOU Attending Unavailable WENCESLAO FRASER Attending Unavailable WENCESLAO FRASER Attending Unavailable Problems Active Problems Problem Classification Problem Date Documented Da te Episodic/Chronic Asthma (2 sources) Unspecified asthma, uncomplicated; Translations: [UNSPECIFIED ASTHMA UNCOMPLICATED] Onset: 03-07-2022 Chronic Other aftercare (1 source) Other [facility] (current) drug therapy; Translations: [OTH JAIL CURRENT DRUG THERAPY] Onset: 09-05-2022 Episodic Other aftercare (1 source) [facility] (current) use of oral hypoglycemic drugs; Translations: [JAIL USE ORAL HYPOGLYCEMIC DX] Onset: 09-05-2022 Episodic [...] Reference Range Facil ity [facility] SARS-CoV-2 (COVID-19) RNA HERIBERTO+probe Ql (Unsp spec) Not detected Normal NOT DETECTED [facility] Comment on above: Result Comment: When [...] for this test is supported by the [employer] of Health and Human Service's declaration that [...] used). Performed By: #### C VDTBH #### [facility] [address] [place] [address] Dr. Rian Vega INFLUENZA A AND B AGon 03-06 INFLUANEGH SEE BELOW Normal [facility] Comment on above: Result Comment: Nega tive for Flu A protein angiten. Infection due to Flu A cannot be ruled out. Flu A angiten in the sample may be below the detection limit of the test. Performed By: #### I NFLUAB #### [facility] [address] [address] [address] Rian Vega INFLUBNEGH SEE BELOW Normal [facility] Comment on above: Result Comment: Nega tive for Flu B protein antigen. Infection due to Flu B cannot be ruled out. Flu B antigen in the sample may be below the detection limit of the test. Performed By: #### I NFLUAB #### [facility] [address] [address] [address] Rian Vega INFLUENZA A AG Negative Normal NEGATIVE SEE COMMENT [facility] Comment on above: Performed By: #### I NFLUAB #### [facility] [address] [address] [address] Rian Vega INFLUENZA B AG Negative Normal NEGATIVE SEE COMMENT [facility] Comment on above: Performed By: #### I NFLUAB #### [facility] [address] [address] [address] Rian Vega INTERNAL CONTROLS Within Normal Limits Normal Wi thin Normal Limits [facility] Comment on above: Performed By: #### I NFLUAB #### [facility] [address] [address] [address] Rian Vega URon 03-06-2022 , QUAL Negative Normal NEGATIVE [facility] Comment on above: Performed By: #### P REGU #### [facility] [address] [address] [address] Rian Vega Encounters Encounter Date Encounter Type Care Provider Facility Start: 08-14-2023 End: 08-14-2023 ambulatory WENCESLAO EVELIO Not Available Start: 07-30-2023 End: 07-30-2023 ambulatory MELANIE CHOU Not Available Start: 07-12-2023 End: 07-12-2023 ambulatory WENCESLAO EVELIO Not Available Start: 06-06-2023 End: 06-06-2023 ambulatory MELANIE JOSÉ ANTONIO Not Available Start: 09-03-2022 End: 09-03-2022 ambulatory [facility] Facili ty:H1 Start: 03-06-2022 End: 03-06-2022 [facility] Payers Date Payer Category Payer Unknown [id number] 2022 Unknown [id number] 1995 Unknown [id number] 2.16.84 [id number] 1993 Unknown [id number] 2.16.84 0.1.169929.3.579.2.593 1993 Unknown [id number] 2.16.84 0.1.389028.3.579.2.1259 1993 Unknown [id number] 2.16.840 .1.966799.3.579.2.1259 1993 Unknown [id number] 2.16.840 .1.179099.3.579.2.1259 1993 Unknown [id number] 2.16.840. 1.310858.3.579.2.1259 1959 Unknown [id number] Self-pay Self Pay [id number] Unknown Self Pay [id number] Social History Date Type Detail Facility Tobacco smoking stat [facility] Unknown if ever smoked [facility] Start: 1995 Sex Assigned At Female F [facility] Clinical Note 03-06-2022 Note Date [...] by: YOHANA UGALDE Date: 2022-03-06 01:53 [facility] Evaluation note Note Date & Type Note Facility Evaluation note No assessment information availa [facility] Summary Purpose Family History No Family History Records FoundNo Family History Records Found Advance Directives No Advanced Directives Records FoundNo Advanced Directives Records Found Additional Source Comments Goals (unrecognized section and content) Goals may be documented in a n alternate section INFORMATION SOURCE (unrecogn ized section and content) DATE CREATED AUTHOR 09/28/2022 [facility] DATE CREATED AUTHOR 'S ORGANIZ ATION 08/15/2023 [facility] dical Specialists EPIC FOR RECORDS PERTAINING [...] BE BASED ON THE PRIMARY CLINICAL RECORDS. [employer] provides no warranty or guarantee of the accuracy or completeness of information in this document.
[2023-08-25 08:58] VITALS: BP 117/53; PULSE 80
== END 2023-08-25 08:57 | disposition home or self-care (01) ==
LOC: FBCO 07:39 → FBC 08:04
PROVIDERS: Visit Provider Obstetrics & Gynecology
DX: O36.63X0 Maternal care for excessive fetal growth, third trimester, not applicable or unspecified (principal); Z3A.00 Weeks of gestation of pregnancy not specified
CPT/HCPCS: 59025

== ENCOUNTER 2023-08-29 07:03 | Outpatient (OUT) | payer BC, MEDICAID, SELFPAY ==
--- OUTSIDE RECORDS SUMMARY | 2023-08-29 07:06 | XMS_ITS | CCD ---
Author Name Unknown Address [address] [place] [address] Organization [facility] Care Team Providers Care Delivery Crew Member Name Role Phone [facility] Unavailable MAREK FLOOD Admitting Unavailable MAREK FLOOD Attending Unavailable MAREK FLOOD Consulting Unavailable [facility] Care Unavailable EB GRANT Admitting Unavailable EB GRANT Attending Unavailable EB GRANT Consulting Unavailable YOHANA UGALDE Unavailable LATANYA CHOU Attending Unavailable LATANYA CHOU Attending Unavailable WENCESLAO MAJANO Attending Unavailable LATANYA CHOU Attending Unavailable WENCESLAO MAJANO Attending Unavailable Unavailable Primary Care Provider Unavailabl e Medications Current Medications Medication Drug Class(es) Dates Sig (Normalized) Sig (Original) [id number] 200 actuat albuterol 0.09 mg/actuat metered dose inhaler (2 sources) beta2-Adrenergic Agonist Start: 04-11-2023 take 2 puff(s) by inhalation every six hours for wheezing albuterol HFA (Ventolin HFA) 90 mcg/act inhaler Indications: Upper respiratory infection, viral Inhale 2 puffs every 6 (six) hours if needed for wheezing. 18 g 2 04/11/2023 Active alpha-tocopherol acetate 30 unt / ascorbic acid 100 mg / beta carotene 1000 unt / calcium carbonate 200 mg / calcium pantothenate 7 mg / cholecalciferol 400 unt / docusate sodium 25 mg / ferrous fumarate 29 mg / folic acid 1 mg / niacinamide 15 mg / pyridoxine hydrochloride 20 mg / riboflavin 3 mg / thiamine 3 mg / vitamin b12 0.012 mg / zinc oxide 20 mg oral tablet (2 sources) Vitamin B12, Vitamin D, Vitamin C take 1 tablet by mouth in the morning Vit-DSS-Fe Fum-FA ( 19) tablet Take 1 tablet by mouth in the morning. 0 Active aspirin 81 mg delayed release oral tablet (2 sources) Platelet Aggregation Inhibitor, Nonsteroidal Anti-inflammatory Drug take 1 tablet by mouth in the morning RA Aspirin EC 81 MG EC tablet Take 81 mg by mouth in the morning. 0 Active baclofen 10 mg oral tablet (2 sources) gamma-Aminobutyric Acid-ergic Agonist Start: 09-11-2022 take 1 tablet by mouth in the morning baclofen (Lioresal) 10 MG tablet Take 10 mg by mouth in the morning and 10 mg before bedtime. 0 09/11/2022 Active metFORMIN hydrochloride 500 mg oral tablet (2 sources) Biguanide metFORMIN (Glucophage) 500 MG tablet every 8 (eight) hours 0 Active omeprazole 20 mg delayed release oral capsule (2 sources) Proton Pump Inhibitor Start: 06-09-2023 take 1 capsule by mouth in the morning omeprazole (PriLOSEC) [address] capsule Take 20 mg by mouth in the morning. 0 06/09/2023 Active ondansetron 4 mg oral tablet (2 sources) Serotonin-3 Receptor Antagonist Start: 03-12-2023 take 1 tablet by mouth twice daily as needed for nausea ondansetron (Zofran) 4 MG tablet Indications: Nausea and vomiting during Take 1 tablet (4 mg) by mouth 2 (two) times a day as needed for nausea. 20 tablet 5 03/12/2023 Active 27-1 MG tablet (2 sources) 27-1 MG tablet 1 (one) time each day at the same time 0 Active Vit-Iron Carbonyl-FA (PNV Tabs 29-1) 29-1 MG tablet (2 sources) Start: 03-12-2023 Vit-Iron Carbonyl-FA (PNV Tabs 29-1) 29-1 MG tablet Indications: care, antepartum Take 1 tablet by mouth in the morning. 30 tablet 6 03/12/2023 Active Problems Active Problems Problem Classification Problem Date Documented Da te Episodic/Chronic Asthma (2 sources) Unspecified asthma, uncomplicated; Translations: [UNSPECIFIED ASTHMA UNCOMPLICATED] Onset: 03-07-2022 Chronic Other aftercare (1 source) Other banking pin adjuster (current) drug therapy; Translations: [OTH CARE HOME CURRENT DRUG THERAPY] Onset: 09-05-2022 Episodic Other aftercare (1 source) senior care (current) use of oral hypoglycemic drugs; Translations: [CARE HOME USE ORAL HYPOGLYCEMIC DX] Onset: 09-05-2022 Episodic Other and delivery including normal (2 sources) Third trimester ; Translations: [Encounter for supervision of normal , unspecified, third trimester] 08-22-2023 Episodic Substance-related disorders (1 source) Nicotine dependence, [...] Name Value Interpretation Reference Range Facil ity Urinalysis macro (dipstick) panel (U)Ordered By: Gabby Murillo on 08-27-2023 Bilirubin, UA Negative Negative - 4(70) +++ mg/dL [facility] Blood, UA Negative Negative - 50 Aureliano/mcL [facility] Clarity, UA Clear [facility] Color, UA Yellow [facility] Glucose, UA Negative Negative - 2000(110) ++++ mg/dL [facility] Interpretation and review of laboratory results Abnormal [facility] Ketones, UA Positive Negative - 160(16) ++++ mg/dL [facility] Comment on above: 15 mg Leukocytes, UA Trace Negative - 500+++ Amanda/mcL [facility] Nitrite, UA Negative Negative - Positive [facility] pH, UA 6.5 5 - 9 [facility] Protein, UA Positive Negative - 2000(20) ++++ mg/dL [facility] Comment on above: 30 mg Spec Grav, UA 1.025 1 - 1.03 [facility] Urobilinogen, UA 0.2 0.2 - 12 mg/dL [facility] e Covid-19 PCR ([facility])on 02-20 SARS-CoV-2 (COVID-19) RNA HERIBERTO+probe Ql (Unsp spec) Not detected Normal NOT DETECTED [facility] Comment on above: Result Comment: When [...] for this test is supported by the [place] of Health and Human Service's declaration that [...] used). Performed By: #### C VDTBH #### [facility] [address] [place] [address] Dr. Rian Vega INFLUENZA A AND B AGon 03-06 [facility] SEE BELOW Normal [facility] Comment on above: Result Comment: Nega tive for Flu A protein angiten. Infection due to Flu A cannot be ruled out. Flu A angiten in the sample may be below the detection limit of the test. Performed By: #### I NFLUAB #### [facility] [address] [place] [address] Dr. [facility]ian [facility] SEE BELOW Normal [facility] Comment on above: Result Comment: Nega tive for Flu B protein antigen. Infection due to Flu B cannot be ruled out. Flu B antigen in the sample may be below the detection limit of the test. Performed By: #### I NFLUAB #### [facility] [address] [address] [address] Rian Vega INFLUENZA A AG Negative Normal NEGATIVE SEE COMMENT [facility] Comment on above: Performed By: #### I NFLUAB #### [facility] [address] [address] [address] Rian Vega INFLUENZA B AG Negative Normal NEGATIVE SEE COMMENT [facility] Comment on above: Performed By: #### I NFLUAB #### [facility] [address] [address] [address] Rian Vega INTERNAL CONTROLS Within Normal Limits Normal Within Normal Limits [facility] Comment on above: Performed By: #### I NFLUAB #### [facility] [address] [place] [address] Dr. Rian Vega URon 03-06-2022 , QUAL Negative Normal NEGATIVE [facility] Comment on above: Performed By: #### P REGU #### [facility] [address] [place] [address] Dr. Rian Vega Vital Signs Date Time Vital Sign Value Performing Clinician Migueli lay 08-27-2023 08:58-0500 Body mass index (BMI) [Ratio] 50.02 kg/m2 Latanya GARCIA Work Phone: [facility] 08-27-2023 08:58-0500 Body weight 149.23 kg Latanya GARCIA Work Phone: [facility] 08-27-2023 08:58-0500 Diastolic blood pressure 74 mm[Hg] Latanya GARCIA Work Phone: [facility] 08-27-2023 08:58-0500 Systolic blood pressure 122 mm[Hg] Latanya GARCIA Work Phone: [facility] Healthcare Encounters Encounter Date Encounter Type Care Provider Facility Start: 08-27-2023 End: 08-27-2023 ambulatory LATANYA CHOU Not Available Start: 08-27-2023 End: 08-27-2023 flow sheet Latanya GARCIA Work Phone: [facility] Comment on above: Third trimester preg catracho Start: 08-14-2023 End: 08-14-2023 ambulatory WENCESLAO MAJANO Not Available Start: 07-30-2023 End: 07-30-2023 ambulatory LATANYA CHOU Not Available Start: 07-12-2023 End: 07-12-2023 ambulatory WENCESLAO MAJANO Not Available Start: 06-06-2023 End: 06-06-2023 ambulatory LATANYA CHOU Not Available Start: 09-03-2022 End: 09-03-2022 [facility] Facility:H[facility] Start: 03-06-2022 End: 03-06-2022 [facility] Facility: Procedures Date Procedure Procedure Detail Performing Clinician Start: 08-27-2023 Urnls dip stick/tabl et rgnt non-auto w/o micrscp Latanya GARCIA Work Phone: Plan of Treatment Date Care Activity Detail Author Start: 09-10-2023 End: 09-10-2023 Patient encounter procedure 09/10/2023 10:10 AM EST Routine [facility] [address] [address] Wenceslao Majano, DO [address] [place] [address] [facility] Payers Date Payer Category Payer Unknown [id number] 2022 Unknown BCBS BCBS [id number] 2022-Present [phone] [address] [place] [address] [id number] [facility] [place] BCBS [place] [id number] 2022-Present [address] [place] [address] [id number] 2022 Unknown [id number] 1995 Unknown [id number] 1993 Unknown [id number] 1993 Unknown [id number] 1993 Unknown [id number] 1993 Unknown [id number] 1993 Unknown [id number] 1993 Unknown [id number] 1959 Unknown [id number] Self-pay Self Pay [id number] Unknown Self Pay [id number] Social History Date Type Detail Facility Tobacco smoking stat [facility] Unknown if ever smoked [facility] Start: 1995 Sex Assigned At Female F [facility] Start: 05-09-2023 [facility] History of tobacco use Cigarette Smoker [facility] Start: 05-09-2023 Cigarettes smoked current (pack per day) - Reported 0.5 [facility] Start: 08-27-2023 Alcohol intake Current drinke r of alcohol (finding) [facility] Start: 05-09-2023 Tobacco use panel [facility] Start: 05-09-2023 Tobacco Comment Half PPD [facility] Start: 05-09-2023 Alcohol Comment Occasional alcohol u se [facility] Start: 01-18-2023 [facility] Start: 1995 Sex Assigned At Not on file [facility] History of Present illness Narrative 08-27-2023 JOSE Rincon - 08/27/2023 8:50 AM EST Note Date & Type Note Facility 08-27-2023 History of Presen t illness Narrative Reason for Appointment: Patient ID: Brenna Rincon is a 28 y.o. female who presents for Routine Visit Patient presents today for Return OB appointment. Patient presents today for a routine obstetrics appointment. Patient is currently 33w4d with a Estimated Date of Delivery: 10/11/23. Current Medications: has a current medication list which includes the following prescription(s): albuterol hfa, baclofen, metformin, omeprazole, ondansetron, , 19, pnv tabs 29-1, and ra aspirin ec. Medical History: Active Ambulatory Problems Diagnosis Date Noted No Active Ambulatory Problems Resolved Ambulatory Problems Diagnosis Date Noted No Resolved Ambulatory Problems Past Medical History: Diagnosis Date Asthma ([facility]) Bipolar disorder ([facility]) Current every day smoker Genital herpes History of marijuana use HSV-2 (herpes simplex virus 2) infection Miscarriage 03/2019 Morbid obesity with BMI of 50.0-59.9, adult ([facility]) PCOS (polycystic ovarian syndrome) Vaginal burning Family History Problem Relation Name Age of Onset Diabetes Mother Asthma Mother Asthma Father Hypertension Father Diabetes Father Stroke Father Diabetes Maternal Grandmother Diabetes Paternal Grandmother Hypertension Paternal Grandfather Heart attack Paternal Grandfather Asthma Sibling Social History Tobacco Use Smoking status: Every Day Packs/day: .5 Types: Cigarettes Smokeless tobacco: Not on file Tobacco comments: Half PPD Substance Use Topics Alcohol use: Yes Comment: Occasional alcohol use Drug use: Not Currently Types: Marijuana Past Surgical History: Procedure Laterality Date SECTION, CLASSIC 09/14/2012 elective MD TONSILLECTOMY & ADENOIDECTOMY AGE 10/> 11/27/2012 No Known Allergies Review of Systems: Review of Systems Constitutional: Negative. HENT: Negative. Eyes: Negative. Respiratory: Negative. Cardiovascular: Negative. Gastrointestinal: Negative. Genitourinary: Negative. Musculoskeletal: Negative. Skin: Negative. Neurological: Negative. All other systems reviewed and are negative. Hematological: Negative. Endocrine: Negative. Allergic/Immunologic: Negative. Objective Physical Exam Constitutional: Appearance: Normal appearance. She is normal weight. HENT: Head: Normocephalic. Cardiovascular: Rate and Rhythm: Normal rate. Pulses: Normal pulses. Pulmonary: Effort: Pulmonary effort is normal. Breath sounds: Normal breath sounds. Abdominal: Palpations: Abdomen is soft. Musculoskeletal: General: Normal range of motion. Neurological: General: No focal deficit present. Mental Status: She is alert and oriented to person, place, and time. Psychiatric: Mood and Affect: Mood normal. Behavior: Behavior normal. Thought Content: Thought content normal. Judgment: Judgment normal. Vitals and nursing note reviewed. Vitals: Estimated body mass index is 50.02 kg/m as calculated from the following: Height as of 05/23/22: 5' 8 . Weight as of this encounter: 329 lb. BP: 122/74 Patient's last menstrual period was 01/04/2023. Assessment/Plan Encounter Diagnosis Name Primary? Third trimester Patient presents today for a routine obstetrics appointment. Patient is currently 33w4d . Patient states she is doing well but has complaints of being tired due to current . Patient has verbalizes frequent movement. labor precautions was discussed/given and patient was instructed to perform kick counts three times a day. Follow Up: Patient is to return to office in 2 week for routine OB appointment. Documented by JOSE Rincon on behalf of: JOSE Rincon documented in this encounter [facility] Clinical Note 03-06-2022 Note Date & Type [...] by: YOHANA UGALDE Date: 2022-03-06 01:53 [facility] Evaluation note Note Date & Type Note Facility Evaluation note No assessment information availa [facility] Evaluation note Note Date & Type Note Facility Evaluation note Diagnosis Third trimester state, incidental documented in this encounter [facility] Summary Purpose Family History No Family History Records FoundNo Family History Records Found Advance Directives No Advanced Directives Records FoundNo Advanced Directives Records Found Additional Source Comments Goals (unrecognized section and content) Goals may be documented in a n alternate section INFORMATION SOURCE (unrecogn ized section and content) DATE CREATED AUTHOR 09/28/2022 [facility] DATE CREATED AUTHOR AUTHOR'S ORGANIZ ATION 08/27/2023 [facility] EPIC Reason for Visit (unrecogniz ed section and content) Reason Comments Routine Visit FOR RECORDS PERTAINING TO PATIENTS WHO ARE [...] BE BASED ON THE PRIMARY CLINICAL RECORDS. [facility] [employer] [facility]. provides no warranty or guarantee of the accuracy or completeness of information in this document.
--- NOTE | 2023-08-29 08:55 | US_ITS ---
[address] [address] Patient Name: THERESA SU MRN: [facility]:[id number] date: 1995 Sex: F Assigned Patient Location: [facility] Current Patient Location: [facility] Accession/Order Number: [id number] Exam Date: 08/29/2023 08:56 Report Date: 08/29/2023 09:41 At the request of: WENCESLAO FRASER Procedure: US OB BPP w non-stress EXAMINATION: US OB BPP w non-stress HISTORY: EXCESSIVE GROWTH O36.63X0 COMPARISON: No relevant comparison available. TECHNIQUE: Ultrasound biophysical profile was performed in the radiology department. FINDINGS: BREATHING MOVEMENTS: 2.0 GROSS BODY MOVEMENTS: 2.0 TONE: 2.0 QUALITATIVE AMNIOTIC FLUID VOLUME: 2.0 PRESENTATION: CEPHALIC HEART RATE: 145.9 bpm H.B./min AMNIOTIC FLUID VOLUME: 12.1 cm cm GESTATIONAL AGE: 33 weeks 5 days CONCLUSION: Total biophysical profile score: 8.0 Electronically authenticated by: DIAMANTE ALDRICH Date: 08/29/2023 09:41
--- NOTE | 2023-08-29 08:55 | US_ITS ---
[address] [address] Patient Name: THERESA SU MRN: [facility]:[id number] date: 1995 Sex: F Assigned Patient Location: [facility] Current Patient Location: [facility] Accession/Order Number: [id number] Exam Date: 08/29/2023 08:56 Report Date: 08/29/2023 09:40 At the request of: WENCESLAO FRASER Procedure: US OB growth EXAMINATION: US OB growth HISTORY: EXCESSIVE GROWTH O36.63X0 COMPARISON: No relevant comparison available. FINDINGS: Heart Rate: 145.9 bpm Amniotic Fluid Volume: 12.1 cm Number: 1.0 Position: Cephalic presentation, longitudinal lie Maximum Vertical Pocket: 2.7 cm cm 3.9 cm cm 4.3 cm cm 1.3 cm cm BIOMETRY: BPD: 8.6 cm cm; 34 weeks 4 days; 70% HC: 32.3 cmcm; 36 weeks 4 days , 83% AC: 29.7 cm cm; 33 weeks 5 days, 53% FL: 6.5 cm cm; 33 weeks 4 days; 36.8 % % EFW: 2335.3 grams, 5 lbs. 2 oz., 53% FL/AC: 21.9 FL/BPD: 76.1 HC/AC: 1.1 GESTATIONAL AGE: Age by EDC: 33 weeks 5 days ASHLEY by EDC: 10/12/2023 Age by US: 34 weeks 4 days ASHLEY by US: 10/06/2023 US/US OB growth IMPRESSION: Normal interval growth Electronically authenticated by: DIAMANTE ALDRICH Date: 08/29/2023 09:40
[2023-08-29 09:32] VITALS: BP 122/58; PULSE 79
== END 2023-08-29 10:00 | disposition home or self-care (01) ==
LOC: US 07:03 → FBC 08:55
PROVIDERS: Visit Provider Obstetrics & Gynecology
DX: O36.63X1 Maternal care for excessive fetal growth, third trimester, fetus 1 (principal); Z3A.33 33 weeks gestation of pregnancy
CPT/HCPCS: 76816; 76818

== ENCOUNTER 2023-09-01 07:38 | Outpatient (OUT) | payer BC, MEDICAID, SELFPAY ==
--- OUTSIDE RECORDS SUMMARY | 2023-09-01 07:41 | XMS_ITS | CCD ---
Author Name Unknown Address [address] [place] [address] Organization [facility] Care Team Providers Care Slusher Operator Name Role Phone [facility] Primary Care Unavailable MAREK FLOOD Admitting Unavailable MAREK FLOOD Attending Unavailable MAREK FLOOD Consulting Unavailable [facility] Primary Care Unavailable EB GRANT Admitting Unavailable EB GRANT Attending Unavailable EB GRANT Consulting Unavailable YOHANA UGALDE Unavailable LATANYA CHOU Attending Unavailable LATANYA CHOU Attending Unavailable WENCESLAO MAJANO Attending Unavailable LATANYA CHOU Attending Unavailable WENCESLAO MAJANO Attending Unavailable Unavailable Primary Care Provider Unavailabl e Medications Current Medications Medication Drug Class(es) Dates Sig (Normalized) Sig (Original) [id number] 200 actuat albuterol 0.09 mg/actuat metered dose [...] 03-07-2022 Chronic Other aftercare (1 source) Other meterman (current) drug therapy; Translations: [OTH COMMUNITY MUSIC THERAPIST CURRENT DRUG THERAPY] Onset: 09-05-2022 Episodic Other aftercare (1 source) 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; Translations: [...] UA Negative Negative - 4(70) +++ mg/dL [facility] Healthcare Blood, UA Negative Negative - 50 Aureliano/mcL [facility] Healthcare Clarity, UA Clear [facility] Color, UA Yellow [facility] Glucose, UA Negative Negative - 2000(110) ++++ mg/dL [facility] Interpretation and review of laboratory results Abnormal [facility] Ketones, UA Positive Negative - 160(16) ++++ mg/dL [facility] Healthcare Comment on above: 15 mg Leukocytes, UA Trace Negative - 500+++ Amanda/mcL [facility] Healthcare Nitrite, UA Negative Negative - Positive [facility] pH, UA 6.5 5 - 9 [facility] Protein, UA Positive Negative - 2000(20) ++++ mg/dL [facility] Comment on above: 30 mg Spec Grav, UA 1.025 1 - 1.03 [facility] Urobilinogen, UA 0.2 0.2 - 12 mg/dL [facility] Healthcar e Covid-19 PCR ([facility])on 02-20 SARS-CoV-2 (COVID-19) RNA HERIBERTO+probe Ql (Unsp spec) Not detected Normal NOT DETECTED [facility] Comment on above: Result Comment: When [...] for this test is supported by the [place] of Health and Human Service's declaration that [...] used). Performed By: #### C VDTBH #### [facility] [address] [place] [address] Dr. Rian Vega INFLUENZA A AND B AGon 03-[facility] BELOW Normal [facility] Comment on above: Result Comment: Nega tive for Flu A protein angiten. Infection due to Flu A cannot be ruled out. Flu A angiten in the sample may be below the detection limit of the test. Performed By: #### I NFLUAB #### [facility] [address] [place] [address] Dr. [facility] SEE BEL[facility] Normal [facility] Comment on above: Result Comment: Nega tive for Flu B protein antigen. Infection due to Flu B cannot be ruled out. Flu B antigen in the sample may be below the detection limit of the test. Performed By: #### I NFLUAB #### [facility] [address] [address] [address] Rian Vega INFLUENZA A AG Negative Normal NEGATIVE SEE COMMENT [facility] Comment on above: Performed By: #### I NFLUAB #### [facility] [address] [address] [address] Rian Vega INFLUENZA B AG Negative Normal NEGATIVE SEE COMMENT [facility] Comment on above: Performed By: #### I NFLUAB #### [facility] [address] [address] [address] Rian Vega INTERNAL CONTROLS Within Normal Limits Normal Within Normal Limits [facility] Comment on above: Performed By: #### I NFLUAB #### [facility] [address] [place] [address] Dr. Rian Vega URon 03-06-2022 , QUAL Negative Normal NEGATIVE [facility] Comment on above: Performed By: #### P REGU #### [facility] [address] [place] [address] Dr. Rian Vega Vital Signs Date Time Vital Sign Value Performing Clinician Migueli lay 08-27-2023 08:58-0500 Body mass index (BMI) [Ratio] 50.02 kg/m2 Latanya GARCIA Work Phone: [facility] 08-27-2023 08:58-0500 Body weight 149.23 kg Latanya GARCIA Work Phone: [facility] 08-27-2023 08:58-0500 Diastolic blood pressure 74 mm[Hg] Latanya GARCIA Work Phone: [facility] 08-27-2023 08:58-0500 Systolic blood pressure 122 mm[Hg] Latanya GARCIA Work Phone: [facility] Healthcare Encounters Encounter Date Encounter Type [...] CHOU Not Available Start: 09-03-2022 End: 09-03-2022 [facility] Facility:H1 Start: 03-06-2022 End: 03-06-2022 [facility] Facility: Procedures Date Procedure Procedure Detail Performing Clinician Start: 08-27-2023 Urnls dip stick/tabl et rgnt non-auto w/o micrscp Latanya GARCIA Work Phone: Plan of Treatment Date Care Activity Detail Author Start: 09-10-2023 End: 09-10-2023 Patient encounter procedure 09/10/2023 10:10 AM EST Routine [facility] [address] [address] Wenceslao Majano, DO [address] [place] [address] [facility] Payers Date Payer Category Payer Unknown [id number] 2022 Unknown BCBS BCBS xxxxxx [id number] 2022-Present [phone] [address] [place] [address] [id number] 2022 Medicaid ANTHEM BCBS [facility] ANTHE[place] BCBS MEDICAID [place] [id number] 2022-Present [address] [place] [address] [id number] 2022 Unknown [id number] 1c097 1995 Unknown [id number] 1993 Unknown [id number] 1993 Unknown [id number] 1993 Unknown [id number] [id number] 1993 Unknown [id number] 1993 Unknown [id number] 1993 Unknown [id number] 1959 Unknown [id number] Self-pay Self Pay [id number] Unknown Self Pay [id number] Social History Date Type Detail Facility Tobacco smoking stat [facility] Unknown if ever smoked [facility] Start: 1995 Sex Assigned At Female F [facility] Start: 05-09-2023 [facility] History of [...] u se [facility] Start: 01-18-2023 [facility] Start: 1995 Sex Assigned At Not [...] Problems Past Medical History: Diagnosis Date Asthma ([facility]) Bipolar disorder ([facility]) Current every day smoker Genital herpes History of marijuana use HSV-2 (herpes simplex virus 2) infection Miscarriage 03/2019 Morbid obesity with BMI of 50.0-59.9, adult ([facility]) PCOS (polycystic ovarian syndrome) Vaginal burning Family [...] Procedure Laterality Date SECTION, CLASSIC 09/14/2012 elective OR TONSILLECTOMY & ADENOIDECTOMY AGE 10/> 11/27/2012 No [...] of: JOSE Rincon documented in this encounter [facility] Clinical Note 03-06-2022 Note Date & [...] by: YOHANA UGALDE Date: 2022-03-06 01:53 [facility] Evaluation note Note Date & Type Note Facility Evaluation note No assessment information availa [facility] Evaluation note Note Date & Type Note [...] content) DATE CREATED AUTHOR 09/28/2022 The [facility] DATE CREATED AUTHOR AUTHOR'S ORGANIZ ATION 08/27/2023 [facility] dical Specialists EPIC Reason for Visit [...] BE BASED ON THE PRIMARY CLINICAL RECORDS. [facility] [employer] [facility]. provides no warranty or guarantee of the accuracy or completeness of information in this document.
[2023-09-01 08:16] VITALS: BP 136/73; PULSE 82
== END 2023-09-01 08:48 | disposition home or self-care (01) ==
LOC: FBCO 07:39 → FBC 08:09
PROVIDERS: Visit Provider Obstetrics & Gynecology
DX: O36.63X1 Maternal care for excessive fetal growth, third trimester, fetus 1 (principal)
CPT/HCPCS: 59025

== ENCOUNTER 2023-09-05 08:01 | Outpatient (OUT) | payer BC, MEDICAID, SELFPAY ==
--- OUTSIDE RECORDS SUMMARY | 2023-09-05 08:04 | XMS_ITS | CCD ---
Author Name Unknown Address [address] [place] [address] Organization [facility] Care Team Providers Care Flatwork Tier Name Role Phone [facility] Primary Care Unavailable MAREK FLOOD Admitting Unavailable MAREK FLOOD Attending Unavailable MAREK FLOOD Consulting Unavailable [facility] Primary Care Unavailable EB GRANT Admitting Unavailable EB GRANT Attending Unavailable EB GRANT Consulting Unavailable YOHANA UGALDE Unavailable LATANYA CHOU Attending Unavailable LATANYA CHOU Attending Unavailable WENCESLAO MAJANO Attending Unavailable LATANYA CHOU Attending Unavailable WENCESLAO MAJANO Attending Unavailable Unavailable Primary Care Provider Unavailabl e Medications Current Medications Medication Drug Class(es) Dates Sig (Normalized) Sig (Original) [id number] 200 actuat albuterol 0.09 mg/actuat metered dose [...] 03-07-2022 Chronic Other aftercare (1 source) Other 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 terminal 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 controller (current) drug therapy; Translations: [OTH LAYER UP CURRENT DRUG THERAPY] Onset: 09-05-2022 Episodic Other aftercare (1 source) 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) use of oral hypoglycemic drugs; Translations: [...] UA Negative Negative - 4(70) +++ mg/dL [facility] Healthcare Blood, UA Negative Negative - 50 Aureliano/mcL [facility] Healthcare Clarity, UA Clear [facility] Color, UA Yellow [facility] Glucose, UA Negative Negative - 2000(110) ++++ mg/dL [facility] Interpretation and review of laboratory results Abnormal [facility] Ketones, UA Positive Negative - 160(16) ++++ mg/dL [facility] Healthcare Comment on above: 15 mg Leukocytes, UA Trace Negative - 500+++ Amanda/mcL [facility] Healthcare Nitrite, UA Negative Negative - Positive [facility] pH, UA 6.5 5 - 9 [facility] Protein, UA Positive Negative - 2000(20) ++++ mg/dL [facility] Comment on above: 30 mg Spec Grav, UA 1.025 1 - 1.03 [facility] Urobilinogen, UA 0.2 0.2 - 12 mg/dL [facility] Healthcar e Covid-19 PCR ([facility])on 02-20 SARS-CoV-2 (COVID-19) RNA HERIBERTO+probe Ql (Unsp spec) Not detected Normal NOT DETECTED [facility] Comment on above: Result Comment: [...] for this test is supported by the [place] of Health and Human Service's declaration that [...] used). Performed By: #### C VDTBH #### [facility] [address] [place] [address] Dr. Rian Vega INFLUENZA A AND B AGon 03-[facility] SEE BELOW Normal [facility] Comment on above: Result Comment: Nega tive for Flu A protein angiten. Infection due to Flu A cannot be ruled out. Flu A angiten in the sample may be below the detection limit of the test. Performed By: #### I NFLUAB #### [facility] [address] [place] [address] Dr. Rian [facility] SEE BELOW Normal [facility] Comment on above: Result Comment: Nega tive for Flu B protein antigen. Infection due to Flu B cannot be ruled out. Flu B antigen in the sample may be below the detection limit of the test. Performed By: #### I NFLUAB #### [facility] [address] [address] [address] Rian Vega INFLUENZA A AG Negative Normal NEGATIVE SEE COMMENT [facility] Comment on above: Performed By: #### I NFLUAB #### [facility] [address] [address] [address] Rian Vega INFLUENZA B AG Negative Normal NEGATIVE SEE COMMENT [facility] Comment on above: Performed By: #### I NFLUAB #### [facility] [address] [address] [address] Rian Vega INTERNAL CONTROLS Within Normal Limits Normal Within Normal Limits [facility] Comment on above: Performed By: #### I NFLUAB #### [facility] [address] [place] [address] Dr. Rian Vega URon 03-06-2022 , QUAL Negative Normal NEGATIVE [facility] Comment on above: Performed By: #### P REGU #### [facility] [address] [place] [address] Dr. Rian Vega Vital Signs Date Time Vital Sign Value Performing Clinician Migueli lay 08-27-2023 08:58-0500 Body mass index (BMI) [Ratio] 50.02 kg/m2 Latanya GARCIA Work Phone: [facility] 08-27-2023 08:58-0500 Body weight 149.23 kg Latanya GARCIA Work Phone: [facility] 08-27-2023 08:58-0500 Diastolic blood pressure 74 mm[Hg] Latanya GARCIA Work Phone: [facility] 08-27-2023 08:58-0500 Systolic blood pressure 122 mm[Hg] Latanya GARCIA Work Phone: [facility] Healthcare Encounters Encounter Date Encounter Type Care [...] CHOU Not Available Start: 09-03-2022 End: 09-03-2022 [facility] Facility:H1 Start: 03-06-2022 End: 03-06-2022 [facility] Facility: Procedures Date Procedure Procedure Detail Performing Clinician Start: 08-27-2023 Urnls dip stick/tabl et rgnt non-auto w/o micrscp Latanya GARCIA Work Phone: Plan of Treatment Date Care Activity Detail Author Start: 09-10-2023 End: 09-10-2023 Patient encounter procedure 09/10/2023 10:10 AM EST Routine [facility] [address] [place] [address] Wenceslao Majano, DO [address] [place] [address] [facility] Payers Date Payer Category Payer Unknown [id number] 2022 Unknown BCBS BCBS xxxxxx [id number] 2022-Present [phone] [address] [place] [address] [id number] 2022 Medicaid ANTHEM BCBS [facility] ANTHEM BCBS MEDICAID [place] [id number] 2022-Present [address] [place] [address] [id number] 2022 Unknown [id number] 1c097 1995 Unknown [id number] 1993 Unknown [id number] [id number] 1993 Unknown [id number] [id number] 1993 Unknown [id number] [id number] 1993 Unknown [id number] [id number] 1993 Unknown [id number] [id number] 1993 Unknown [id number] 1959 Unknown [id number] Self-pay Self Pay [id number] Unknown Self Pay [id number] Social History Date Type Detail Facility Tobacco smoking stat [facility] Unknown if ever smoked [facility] Start: 1995 Sex Assigned At Female F [facility] Start: 05-09-2023 [facility] History [...] u se [facility] Start: 01-18-2023 [facility] 1995 Sex Assigned At Not on [...] Problems Past Medical History: Diagnosis Date Asthma ([facility]) Bipolar disorder ([facility]) Current every day smoker Genital herpes History of marijuana use HSV-2 (herpes simplex virus 2) infection Miscarriage 03/2019 Morbid obesity with BMI of 50.0-59.9, adult ([facility]) PCOS (polycystic ovarian syndrome) Vaginal burning [...] Procedure Laterality Date SECTION, CLASSIC 09/14/2012 elective [facility] TONSILLECTOMY & ADENOIDECTOMY AGE 10/> 11/27/2012 No [...] of: JOSE Rincon documented in this encounter [facility] Clinical Note 03-06-2022 Note Date & Type [...] by: YOHANA UGALDE Date: 2022-03-06 01:53 [facility] Evaluation note Note Date & Type Note Facility Evaluation note No assessment information availa [facility] Evaluation note Note Date & [...] and content) DATE CREATED AUTHOR 09/28/[address] [facility] DATE CREATED AUTHOR AUTHOR'S ORGANIZ ATION 08/27/2023 [facility] dical Specialists EPIC Reason for Visit (unrecogniz [...] BE BASED ON THE PRIMARY CLINICAL RECORDS. [facility] [employer] [facility]. provides no warranty or guarantee of the accuracy or completeness of information in this document.
[2023-09-05 08:46] VITALS: BP 118/56; PULSE 90
--- NOTE | 2023-09-05 09:15 | US_ITS ---
[address] [address] Patient Name: THERESA SU [facility]N: [facility]:[id number] date: 1995 Sex: F Assigned Patient Location: [facility] Current Patient Location: Accession/Order Number: [id number] Exam Date: 09/05/2023 09:16 Report Date: 09/05/2023 09:57 At the request of: WENCESLAO FRASER Procedure: US OB BPP w non-stress EXAMINATION: US OB BPP w non-stress HISTORY: Excessive growth O36.63X0 COMPARISON: Ultrasound OB biophysical 08/29/2023 TECHNIQUE: Ultrasound biophysical profile was performed in the radiology department. BREATHING MOVEMENTS: 2.0 GROSS BODY MOVEMENTS: 2.0 TONE: 2.0 QUALITATIVE AMNIOTIC FLUID VOLUME: 2.0 PRESENTATION: CEPHALIC HEART RATE: 132.4 bpm bpm. AMNIOTIC FLUID VOLUME: 17.7 cm GESTATIONAL AGE: 34 weeks 5 days CONCLUSION: Total biophysical profile score 8.0. Electronically authenticated by: YOANA MELGOZA Date: 09/05/2023 09:57
== END 2023-09-05 09:50 | disposition home or self-care (01) ==
LOC: US 08:21 → FBC 08:32
PROVIDERS: Visit Provider Obstetrics & Gynecology
DX: O36.63X1 Maternal care for excessive fetal growth, third trimester, fetus 1 (principal); Z3A.34 34 weeks gestation of pregnancy
CPT/HCPCS: 76818

== ENCOUNTER 2023-09-08 06:52 | Outpatient (OUT) | payer BC, MEDICAID, SELFPAY ==
[2023-09-08 06:54] VITALS: BP 136/63; PULSE 74
--- OUTSIDE RECORDS SUMMARY | 2023-09-08 06:55 | XMS_ITS | CCD ---
Author Name Unknown Address [address] [place] [address] Organization [facility] Care Team Providers Care Petroleum Engineering Professor Name Role Phone [facility] Primary Care Unavailable MAREK FLOOD Admitting Unavailable MAREK FLOOD Attending Unavailable AMREK FLOOD Consulting Unavailable [facility] Primary Care Unavailable EB GRANT Admitting Unavailable EB GRANT Attending Unavailable EB GRANT Consulting Unavailable YOHANA UGALDE Unavailable LATANYA CHOU Attending Unavailable LATANYA CHOU Attending Unavailable WENCESLAO MAJANO Attending Unavailable LATANYA CHOU Attending Unavailable WENCESLAO MAJANO Attending Unavailable Unavailable Primary Care Provider Unavailabl e Medications Current Medications Medication Drug Class(es) Dates Sig (Normalized) Sig (Original) [id number] 200 actuat albuterol 0.09 mg/actuat metered dose [...] 03-07-2022 Chronic Other aftercare (1 source) 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) drug therapy; Translations: [OTH SUPPRESSION CREW LEADER CURRENT DRUG THERAPY] Onset: 09-05-2022 Episodic Other aftercare (1 source) 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 of oral hypoglycemic drugs; Translations: [[facility] USE ORAL HYPOGLYCEMIC DX] Onset: 09-05-2022 Episodic [...] UA Negative Negative - 4(70) +++ mg/dL [facility] Healthcare Blood, UA Negative Negative - 50 Aureliano/mcL [facility] Healthcare Clarity, UA Clear [facility] Color, UA Yellow [facility] Glucose, UA Negative Negative - 2000(110) ++++ mg/dL [facility] Interpretation and review of laboratory results Abnormal [facility] Ketones, UA Positive Negative - 160(16) ++++ mg/dL [facility] Comment on above: 15 mg Leukocytes, UA Trace Negative - 500+++ Amanda/mcL [facility] Healthcare Nitrite, UA Negative Negative - Positive [facility] pH, UA 6.5 5 - 9 [facility], UA Positive Negative - 2000(20) ++++ mg/dL [facility] Comment on above: 30 mg Spec Grav, UA 1.025 1 - 1.03 [facility] Urobilinogen, UA 0.2 0.2 - 12 mg/dL [facility] e Covid-19 PCR ([facility])on 02-20 SARS-CoV-2 (COVID-19) RNA HERIBERTO+probe Ql (Unsp spec) Not detected Normal NOT DETECTED [facility] Comment on above: Result Comment: When [...] for this test is supported by the [place] of Health and Human Service's declaration that [...] By: #### C VDTBH #### [facility] Laboratory [address] [place] [address] Dr. Rian Vega INFLUENZA A AND B AGon 03-06 [facility] SEE BELOW Normal [facility] Comment on above: Result Comment: Nega tive for Flu A protein angiten. Infection due to Flu A cannot be ruled out. Flu A angiten in the sample may be below the detection limit of the test. Performed By: #### I NFLUAB #### [facility] [address] [place] [address] Dr. [facility] SEE BELOW Normal [facility] Comment on above: Result Comment: Nega tive for Flu B protein antigen. Infection due to Flu B cannot be ruled out. Flu B antigen in the sample may be below the detection limit of the test. Performed By: #### I NFLUAB #### [facility] [address] [address] [address] Rian Vega INFLUENZA A AG Negative Normal NEGATIVE SEE COMMENT [facility] Comment on above: Performed By: #### I NFLUAB #### [facility] [address] [address] [address] Rian Vega INFLUENZA B AG Negative Normal NEGATIVE SEE COMMENT [facility] Comment on above: Performed By: #### I NFLUAB #### [facility] [address] [address] [address] Rian Vega INTERNAL CONTROLS Within Normal Limits Normal Within Normal Limits [facility] Comment on above: Performed By: #### I NFLUAB #### [facility] [address] [place] [address] Dr. Rian Vega URon 03-06-2022 , QUAL Negative Normal NEGATIVE [facility] Comment on above: Performed By: #### P REGU #### [facility] [address] [place] [address] Dr. Rian Vega Vital Signs Date Time Vital Sign Value Performing Clinician Migueli lay 08-27-2023 08:58-0500 Body mass index (BMI) [Ratio] 50.02 kg/m2 Latanya GARCIA Work Phone: [facility] 08-27-2023 08:58-0500 Body weight 149.23 kg Latanya GARCIA Work Phone: [facility] 08-27-2023 08:58-0500 Diastolic blood pressure 74 mm[Hg] Latanya GARCIA Work Phone: [facility] 08-27-2023 08:58-0500 Systolic blood pressure 122 mm[Hg] Latanya GARCIA Work Phone: [facility] Healthcare Encounters Encounter Date Encounter Type [...] Not Available Start: 09-03-2022 End: 09-03-2022 [facility] Facility:H1 Start: 03-06-2022 End: 03-06-2022 [facility] Facility: Procedures Date Procedure Procedure Detail Performing Clinician Start: 08-27-2023 Urnls dip stick/tabl et rgnt non-auto w/o micrscp Latanya GARCIA Work Phone: Plan of Treatment Date Care Activity Detail Author Start: 09-10-2023 End: 09-10-2023 Patient encounter procedure 09/10/2023 10:10 AM EST Routine [facility] [address] [place] [address] Wenceslao Majano, DO [address] [place] [address] [facility] Payers Date Payer Category Payer Unknown [id number] 2022 Unknown BCBS BCBS xxxxxx [id number] 2022-Present [phone] [address] [place] [address] [id number] 2022 Medicaid ANTHEM BCBS [facility] ANTHEM BCBS MEDICAID [place] [id number] 2022-Present [address] [place] [address] [id number] 2022 Unknown [id number] 1c097 1995 Unknown [id number] 1993 Unknown [id number] [id number] 1993 Unknown [id number] 1993 Unknown [id number] 1993 Unknown [id number] [id number] 1993 Unknown [id number] 1993 Unknown [id number] 1959 Unknown [id number] Self-pay Self Pay [id number] Unknown Self Pay [id number] Social History Date Type Detail Facility Tobacco smoking stat [facility] Unknown if ever smoked [facility] Start: 1995 Sex Assigned At Female F [facility] Start: 05-09-2023 [facility] [...] u se [facility] Start[facility] 01-18-2023 [facility] 1995 Sex Assigned At Not [...] Problems Past Medical History: Diagnosis Date Asthma ([facility]) Bipolar disorder ([facility]) Current every day smoker Genital herpes History of marijuana use HSV-2 (herpes simplex virus 2) infection Miscarriage 03/2019 Morbid obesity with BMI of 50.0-59.9, adult ([facility]) PCOS (polycystic ovarian syndrome) Vaginal burning Family [...] Procedure Laterality Date SECTION, CLASSIC 09/14/[address] TONSILLECTOMY & ADENOIDECTOMY AGE 10/> 11/27/2012 No [...] of: JOSE Rincon documented in this encounter [facility] Clinical Note 03-06-2022 Note Date & [...] UGALDE Date: 2022-03-06 01:[address] [facility] Evaluation note Note Date & Type Note Facility Evaluation note No assessment information availa [facility] Evaluation note Note Date & [...] and content) DATE CREATED AUTHOR 09/28/2022 [facility] DATE CREATED AUTHOR AUTHOR'S ORGANIZ ATION 08/27/2023 [facility] dical Specialists EPIC Reason for Visit [...] BE BASED ON THE PRIMARY CLINICAL RECORDS. [facility]. provides no warranty or guarantee of the accuracy or completeness of information in this document.
== END 2023-09-08 07:35 | disposition home or self-care (01) ==
LOC: FBCO 06:52 → FBC 06:53
PROVIDERS: Visit Provider Obstetrics & Gynecology
DX: O36.63X0 Maternal care for excessive fetal growth, third trimester, not applicable or unspecified (principal)
CPT/HCPCS: 59025

== ENCOUNTER 2023-09-12 07:34 | Outpatient (OUT) | payer BC, MEDICAID, SELFPAY ==
--- OUTSIDE RECORDS SUMMARY | 2023-09-12 07:37 | XMS_ITS | CCD ---
Author Name Unknown Address [address] [place] [address] Organization [facility] Care Team Providers Care Senior Marketing Engineer Name Role Phone [facility] Primary Care Unavailable HERIBERTO ., MAREK Admitting Unavailable MAREK FLOOD Attending Unavailable MAREK FLOOD Consulting Unavailable [facility] Primary Care Unavailable EB GRANT Admitting Unavailable EB GRANT Attending Unavailable EB GRANT Consulting Unavailable YOHANA UGALDE Unavailable Unavailable Primary Care Provider UnavailLATANYA Day Attending Unavailable LATANYA CHOU Attending Unavailable WENCESLAO MAJANO Attending Unavailable LATANYA CHOU Attending Unavailable WENCESLAO MAJANO Attending Unavailable WENCESLAO MAJANO Attending Unavailable Medications Current Medications Medication Drug Class(es) Dates Sig (Normalized) Sig (Original) [id number] 200 actuat albuterol 0.09 mg/actuat metered dose [...] 03-07-2022 Chronic Other aftercare (1 source) Other nursing home (current) drug therapy; Translations: [OTH CORRECTION CURRENT DRUG THERAPY] Onset: 09-05-2022 Episodic Other aftercare (1 source) 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 of oral hypoglycemic drugs; Translations: [RETAIL GENERAL MANAGER USE ORAL HYPOGLYCEMIC DX] Onset: 09-05-2022 Episodic [...] UA Negative Negative - 4(70) +++ mg/dL [facility] Blood, UA Negative Negative - 50 Aureliano/mcL [facility] Clarity, UA Clear [facility] Color, UA Yellow [facility] Glucose, UA Negative Negative - 2000(110) ++++ mg/dL [facility] Interpretation and review of laboratory results Abnormal [facility] Healthcare Ketones, UA Positive Negative - 160(16) ++++ mg/dL [facility] Comment on above: 15 mg Leukocytes, UA Trace Negative - 500+++ Amanda/mcL [facility] Nitrite, UA Negative Negative - Positive [facility] pH, UA 6.5 5 - 9 [facility] Health[facility] e Protein, UA Positive Negative - 2000(20) ++++ mg/dL [facility] Comment on above: 30 mg Spec Grav, UA 1.025 1 - 1.03 [facility] Urobilinogen, UA 0.2 0.2 - 12 mg/dL [facility] e Covid-[facility] PCR [facility]on 02-20 SARS-CoV-2 (COVID-19) RNA HERIBERTO+probe Ql (Unsp spec) Not detected Normal NOT DETECTED [facility] Comment on above: Result Comment: When diagnostic [...] for this test is supported by the [place] of Health and Human Service's declaration that [...] used). Performed By: #### C VDTBH #### [facility] [address] [place] [address] Dr. Rian Vega INFLUENZA A AND B AGon 03-[facility] Normal [facility] Comment on above: Result Comment: Nega tive for Flu A protein angiten. Infection due to Flu A cannot be ruled out. Flu A angiten in the sample may be below the detection limit of the test. Performed By: #### I NFLUAB #### [facility] [address] [place] [address] Dr. Rian Vega INFLUBNEG SEE BELOW Normal [facility] Comment on above: Result Comment: Nega tive for Flu B protein antigen. Infection due to Flu B cannot be ruled out. Flu B antigen in the sample may be below the detection limit of the test. Performed By: #### I NFLUAB #### [facility] [address] [address] [address] Rian Vega INFLUENZA A AG Negative Normal NEGATIVE SEE COMMENT [facility] Comment on above: Performed By: #### I NFLUAB #### [facility] [address] [address] [address] Rian Vega INFLUENZA B AG Negative Normal NEGATIVE SEE COMMENT [facility] Comment on above: Performed By: #### I NFLUAB #### [facility] [address] [address] [address] Rian Vega INTERNAL CONTROLS Within Normal Limits Normal Within Normal Limits [facility] Comment on above: Performed By: #### I NFLUAB #### [facility] [address] [place] [address] Dr. Rian Vega URon 03-06-2022 , QUAL Negative Normal NEGATIVE [facility] Comment on above: Performed By: #### P REGU #### [facility] [address] [place] [address] Dr. Rian Vega Vital Signs Date Time Vital Sign Value Performing Clinician Migueli lity 08-27-2023 08:58-0500 Body mass index (BMI) [Ratio] 50.02 kg/m2 Latanya GARCIA Work Phone: [facility] 08-27-2023 08:58-0500 Body weight 149.23 kg Latanya GARCIA Work Phone: [facility] 08-27-2023 08:58-0500 Diastolic blood pressure 74 mm[Hg] Latanya GARCIA Work Phone: [facility] 08-27-2023 08:58-0500 Systolic blood pressure 122 mm[Hg] Latanya GARCIA Work Phone: [facility] Healthcare Encounters Encounter Date Encounter Type Care Provider Facility Start: 09-10-2023 End: 09-10-2023 ambulatory WENCESLAO MAJANO Not Available Start: 08-27-2023 End: 08-27-2023 ambulatory LATANYA CHOU Not Available Start: 08-27-2023 End: 08-27-2023 flow sheet Latanya GARCIA Work Phone: [facility] Comment on above: Third trimester preg catracho Start: 08-14-2023 End: 08-14-2023 ambulatory WENCESLAO EVELIO Not Available Start: 07-30-2023 End: 07-30-2023 ambulatory LATANYA JOSÉ ANTONIO Not Available Start: 07-12-2023 End: 07-12-2023 ambulatory WENCESLAO EVELIO Not Available Start: 06-06-2023 End: 06-06-2023 ambulatory LATANYA CHOU Not Available Start: 09-03-2022 End: 09-03-2022 ambulatory [facility] Facility:H1 Start: 03-06-2022 End: 03-06-2022 [facility] Facility:H1 Procedures Date Procedure Procedure Detail Performing Clinician Start: 08-27-2023 Urnls dip stick/tabl et rgnt non-auto w/o micrscp Latanya GARCIA Work Phone: Plan of Treatment Date Care Activity Detail Author Start: 09-10-2023 End: 09-10-2023 Patient encounter procedure 09/10/2023 10:10 AM EST Routine [facility] [address] [place] [id number] Wenceslao Majano, DO [address] [place] [address] [facility] Payers Date Payer Category Payer Unknown BCBS BCBS xxxxxx [id number] 2022-Present [phone] [address] [place] [address] [id number] 2022 Unknown [id number] 2022 Medicaid ANTHEM BCBS [facility] ANTHEM BCBS MEDICAID [place] [id number] 2022-Present [address] [place] [address] [id number] 2022 Unknown [id number] 1c097 1995 Unknown [id number] 1993 Unknown [id number] [id number] 1993 Unknown [id number] [id number] 1993 Unknown [id number] [id number] 1993 Unknown [id number] [id number] 1993 Unknown [id number] [id number] 1993 Unknown [id number] [id number] 1993 Unknown [id number] 1959 Unknown [id number] Self-pay Self Pay [id number] Unknown Self Pay [id number] Social History Date Type Detail Facility Tobacco smoking stat [facility] Unknown if ever smoked [facility] Start: 1995 Sex Assigned At Female F [facility] Start: 05-09-2023 [facility] [...] u se [facility] Start: 01-18-2023 [facility] Start: 1995 Sex Assigned At Not on file [facility] History of Present illness Narrative 08-27-2023 [...] Problems Past Medical History: Diagnosis Date Asthma ([facility]) Bipolar disorder ([facility]) Current every day smoker Genital herpes History of marijuana use HSV-2 (herpes simplex virus 2) infection Miscarriage 03/2019 Morbid obesity with BMI of 50.0-59.9, adult ([facility]) PCOS (polycystic ovarian syndrome) Vaginal [...] Procedure Laterality Date SECTION, CLASSIC 09/14/2012 elective [place] TONSILLECTOMY & ADENOIDECTOMY AGE 10/> 11/27/2012 No [...] of: JOSE Rincon documented in this encounter [facility] Clinical Note 03-06-2022 Note Date [...] by: YOHANA UGALDE Date: 2022-03-06 01:53 [facility] Evaluation note Note Date & Type Note Facility Evaluation note No assessment information availa [facility] Evaluation note Note Date & Type [...] and content) DATE CREATED AUTHOR 09/28/2022 [facility] DATE CREATED AUTHOR AUTHOR'S ORGANIZ ATION 09/10/2023 [facility] dical Specialists EPIC Reason for Visit [...] BE BASED ON THE PRIMARY CLINICAL RECORDS. [facility]. provides no warranty or guarantee of the accuracy or completeness of information in this document.
--- NOTE | 2023-09-12 09:08 | US_ITS ---
[address] [address] Patient Name: THERESA SU MRN: [facility]:[id number] date: 1995 Sex: F Assigned Patient Location: [facility] Current Patient Location: [facility] Accession/Order Number: [id number] Exam Date: 09/12/2023 09:09 Report Date: 09/12/2023 09:50 At the request of: WENCESLAO FRASER Procedure: US OB BPP w non-stress EXAMINATION: US OB BPP w non-stress HISTORY: Excessive growth O36.63x0 COMPARISON: Ultrasound OB biophysical 09/05/2023 TECHNIQUE: Ultrasound biophysical profile was performed in the radiology department. BREATHING MOVEMENTS: 2.0 GROSS BODY MOVEMENTS: 2.0 TONE: 2.0 QUALITATIVE AMNIOTIC FLUID VOLUME: 2.0 PRESENTATION: CEPHALIC HEART RATE: 145.9 bpm bpm. AMNIOTIC FLUID VOLUME: 14.3 cm GESTATIONAL AGE: 35 weeks 5 days CONCLUSION: Total biophysical profile score 8.0. Electronically authenticated by: YOANA MELGOZA Date: 09/12/2023 09:50
[2023-09-12 09:35] VITALS: BP 137/70; PULSE 81; TEMP 35.9
== END 2023-09-12 10:20 | disposition home or self-care (01) ==
LOC: US 07:34 → FBC 09:05
PROVIDERS: Visit Provider Obstetrics & Gynecology
DX: O36.63X0 Maternal care for excessive fetal growth, third trimester, not applicable or unspecified (principal); Z3A.35 35 weeks gestation of pregnancy
CPT/HCPCS: 59025; 76818

== ENCOUNTER 2023-09-15 07:05 | Outpatient (OUT) | payer BC, MEDICAID, SELFPAY ==
--- OUTSIDE RECORDS SUMMARY | 2023-09-15 07:08 | XMS_ITS | CCD ---
Author Name Unknown Address [address] [place] [address] Organization [facility] Care Team Providers Care Pet Trainer Name Role Phone [facility] Primary Care Unavailable HERIBERTO ., MAREK Admitting Unavailable MAREK FLOOD Attending Unavailable MAREK FLOOD Consulting Unavailable [facility] Primary Care Unavailable EB GRANT Admitting Unavailable EB GRANT Attending Unavailable EB GRANT Consulting Unavailable YOHANA UGALDE Unavailable Unavailable Primary Care Provider UnavailLATANYA Day Attending Unavailable LATANYA CHOU Attending Unavailable WENCESLAO MAJANO Attending Unavailable LATANYA CHOU Attending Unavailable WENCESLAO MAJANO Attending Unavailable WENCESLAO MAJANO Attending Unavailable Medications Current Medications Medication Drug Class(es) Dates Sig (Normalized) Sig (Original) [id number] 200 actuat albuterol 0.09 mg/actuat metered dose [...] 03-07-2022 Chronic Other aftercare (1 source) Other long-term (current) drug therapy; Translations: [OTH DETENTION CURRENT DRUG THERAPY] Onset: 09-05-2022 Episodic Other aftercare (1 source) 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; Translations: [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] Onset: 09-05-2022 Episodic [...] UA Negative Negative - 4(70) +++ mg/dL [facility] Blood, UA Negative Negative - 50 Aureliano/mcL [facility] Clarity, UA Clear [facility] Color, UA Yellow [facility] Glucose, UA Negative Negative - 2000(110) ++++ mg/dL [facility] Interpretation and review of laboratory results Abnormal [facility] Healthcare Ketones, UA Positive Negative - 160(16) ++++ mg/dL [facility] Comment on above: 15 mg Leukocytes, UA Trace Negative - 500+++ Amanda/mcL [facility] Nitrite, UA Negative Negative - Positive [facility] pH, UA 6.5 5 - 9 [facility] Healthcar e Protein, UA Positive Negative - 2000(20) ++++ mg/dL [facility] Comment on above: 30 mg Spec Grav, UA 1.025 1 - 1.03 [facility] Urobilinogen, UA 0.2 0.2 - 12 mg/dL [facility] Covid-19 PCR ([facility])on 02-20 SARS-CoV-2 (COVID-19) RNA HERIBERTO+probe Ql (Unsp spec) Not detected Normal NOT DETECTED [facility] Comment on above: Result Comment: [...] for this test is supported by the [place] of Health and Human Service's declaration that [...] used). Performed By: #### C VDTBH #### [facility] [address] [place] [address] Dr. Rian Vega INFLUENZA A AND B AGon 03-[facility] BELOW Normal [facility] Comment on above: Result Comment: Nega tive for Flu A protein angiten. Infection due to Flu A cannot be ruled out. Flu A angiten in the sample may be below the detection limit of the test. Performed By: #### I NFLUAB #### [facility] [address] [place] [address] Dr. Rian Vega INFLUBNEG SEE BELOW Normal [facility] Comment on above: Result Comment: Nega tive for Flu B protein antigen. Infection due to Flu B cannot be ruled out. Flu B antigen in the sample may be below the detection limit of the test. Performed By: #### I NFLUAB #### [facility] [address] [address] [address] Rian Vega INFLUENZA A AG Negative Normal NEGATIVE SEE COMMENT [facility] Comment on above: Performed By: #### I NFLUAB #### [facility] [address] [address] [address] Rian Vega INFLUENZA B AG Negative Normal NEGATIVE SEE COMMENT [facility] Comment on above: Performed By: #### I NFLUAB #### [facility] [address] [address] [address] Rian Vega INTERNAL CONTROLS Within Normal Limits Normal Within Normal Limits [facility] Comment on above: Performed By: #### I NFLUAB #### [facility] [address] [place] [address] Dr. Rian Vega URon 03-06-2022 , QUAL Negative Normal NEGATIVE [facility] Comment on above: Performed By: #### P REGU #### [facility] [address] [place] [address] Dr. Rian Vega Vital Signs Date Time Vital Sign Value Performing Clinician Migueli lity 08-27-2023 08:58-0500 Body mass index (BMI) [Ratio] 50.02 kg/m2 Latanya GARCIA Work Phone: [facility] 08-27-2023 08:58-0500 Body weight 149.23 kg Latanya GARCIA Work Phone: [facility] 08-27-2023 08:58-0500 Diastolic blood pressure 74 mm[Hg] Latanya GARCIA Work Phone: [facility] 08-27-2023 08:58-0500 Systolic blood pressure 122 mm[Hg] Latanya GARCIA Work Phone: [facility] Healthcare Encounters Encounter Date Encounter [...] Not Available Start: 09-03-2022 End: 09-03-2022 ambulatory [facility] Facility:H1 Start: 03-06-2022 End: 03-06-2022 [facility] Facility:H1 Procedures Date Procedure Procedure Detail Performing Clinician Start: 08-27-2023 Urnls dip stick/tabl et rgnt non-auto w/o micrscp Latanya GARCIA Work Phone: Plan of Treatment Date Care Activity Detail Author Start: 09-10-2023 End: 09-10-2023 Patient encounter procedure 09/10/2023 10:10 AM EST Routine [facility] [address] [place] [id number] Wenceslao Majano, DO [address] [place] [address] [facility] Payers Date Payer Category Payer Unknown BCBS BCBS [id number] 2022-Present [phone] [address] [place] [address] [id number] 2022 Unknown [id number] 2022 Medicaid ANTHE[place] BCBS [facility] AN[place] BCBS [place] [id number] 2022-Present [address] [place] [address] [id number] 2022 Unknown [id number] 1993 Unknown [id number] 1993 Unknown [id number] [id number] 1993 Unknown [id number] 2.16.840.1.732415.3.579.2.1259 1993 Unknown [id number] [id number] 1993 Unknown [id number] [id number] 1993 Unknown [id number] [id number] 1993 Unknown [id number] [id number] 1993 Unknown [id number] [id number] 1959 Unknown [id number] Self-pay Self Pay [id number] Unknown Self Pay [id number] Social History Date Type Detail Facility Tobacco smoking stat [facility] Unknown if ever smoked [facility] Start: 1995 Sex Assigned At Female F [facility] Start: 05-09-2023 [facility] History [...] Problems Past Medical History: Diagnosis Date Asthma ([facility]) Bipolar disorder ([facility]) Current every day smoker Genital herpes History of marijuana use HSV-2 (herpes simplex virus 2) infection Miscarriage 03/2019 Morbid obesity with BMI of 50.0-59.9, adult ([facility]) PCOS (polycystic ovarian syndrome) Vaginal burning [...] Procedure Laterality Date SECTION, CLASSIC 09/14/2012 elective [place] TONSILLECTOMY & ADENOIDECTOMY AGE 10/> 11/27/2012 No [...] of: JOSE Rincon documented in this encounter [facility] Clinical Note 03-06-2022 Note Date [...] by: YOHANA UGALDE Date: 2022-03-06 01:53 [facility] Evaluation note Note Date & Type Note Facility Evaluation note No assessment information availa [facility] Evaluation note Note Date & Type Note [...] and content) DATE CREATED AUTHOR 09/28/2022 [facility] DATE CREATED AUTHOR AUTHOR'S ORGANIZ ATION 09/10/2023 [facility] dical Specialists EPIC Reason for Visit (unrecogniz [...] CLINICAL RECORDS. [facility]. provides no warranty or guarantee of the accuracy or completeness of information in this document.
[2023-09-15 07:13] VITALS: BP 136/68; PULSE 82
== END 2023-09-15 07:36 | disposition home or self-care (01) ==
LOC: FBCO 07:06 → FBC 07:07
PROVIDERS: Visit Provider Obstetrics & Gynecology Gynecology
DX: O36.63X0 Maternal care for excessive fetal growth, third trimester, not applicable or unspecified (principal)
CPT/HCPCS: 59025

== ENCOUNTER 2023-09-18 20:45 | Outpatient (REF) | payer BC, MEDICAID, SELFPAY ==
--- OUTSIDE RECORDS SUMMARY | 2023-09-18 20:50 | XMS_ITS | CCD ---
Author Name Unknown Address [address] [place] [address] Organization [facility] Care Team Providers Care Tape Cutter Name Role Phone [facility] Primary Care Unavailable HERIBERTO ., MAREK Admitting Unavailable MAREK FLOOD Attending Unavailable MAREK FLOOD Consulting Unavailable [facility] Primary Care Unavailable EB GRANT Admitting Unavailable EB GRANT Attending Unavailable EB GRANT Consulting Unavailable YOHANA UGALDE Unavailable Unavailable Primary Care Provider UnavailLATANYA Day Attending Unavailable LATANYA CHOU Attending Unavailable WENCESLAO MAJANO Attending Unavailable LATANYA CHOU Attending Unavailable WENCESLAO MAJANO Attending Unavailable WENCESLAO MAJANO Attending Unavailable Medications Current Medications Medication Drug Class(es) Dates Sig (Normalized) Sig (Original) [id number] 200 actuat albuterol 0.09 mg/actuat metered dose [...] 03-07-2022 Chronic Other aftercare (1 source) Other half-way (current) drug therapy; Translations: [OTH FPC CURRENT DRUG THERAPY] Onset: 09-05-2022 Episodic Other aftercare (1 source) 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; Translations: [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 ORAL HYPOGLYCEMIC DX] Onset: 09-05-2022 Episodic [...] UA Negative Negative - 4(70) +++ mg/dL [facility] Blood, UA Negative Negative - 50 Aureliano/mcL [facility] Clarity, UA Clear [facility] Color, UA Yellow [facility] Glucose, UA Negative Negative - 2000(110) ++++ mg/dL [facility] Interpretation and review of laboratory results Abnormal [facility] Healthcare Ketones, UA Positive Negative - 160(16) ++++ mg/dL [facility] Comment on above: 15 mg Leukocytes, UA Trace Negative - 500+++ Amanda/mcL [facility] Nitrite, UA Negative Negative - Positive [facility] pH, UA 6.5 5 - 9 [facility] Healthcar e Protein, UA Positive Negative - 2000(20) ++++ mg/dL [facility] Comment on above: 30 mg Spec Grav, UA 1.025 1 - 1.03 [facility] Urobilinogen, UA 0.2 0.2 - 12 mg/dL [facility] Covid-19 PCR ([facility])on 02-20 SARS-CoV-2 (COVID-19) RNA HERIBERTO+probe Ql (Unsp spec) Not detected Normal NOT DETECTED [facility] Comment on above: Result Comment: When [...] for this test is supported by the [place] of Health and Human Service's declaration that [...] used). Performed By: #### C VDTBH #### [facility] [address] [place] [address] Dr. Rian Vega INFLUENZA A AND B AGon 03-[facility] Normal [facility] Comment on above: Result Comment: Nega tive for Flu A protein angiten. Infection due to Flu A cannot be ruled out. Flu A angiten in the sample may be below the detection limit of the test. Performed By: #### I NFLUAB #### [facility] [address] [place] [address] Dr. Rian Vega INFLUBNEG SEE BELOW Normal [facility] Comment on above: Result Comment: Nega tive for Flu B protein antigen. Infection due to Flu B cannot be ruled out. Flu B antigen in the sample may be below the detection limit of the test. Performed By: #### I NFLUAB #### [facility] [address] [address] [address] Rian Vega INFLUENZA A AG Negative Normal NEGATIVE SEE COMMENT [facility] Comment on above: Performed By: #### I NFLUAB #### [facility] [address] [address] [address] Rian Vega INFLUENZA B AG Negative Normal NEGATIVE SEE COMMENT [facility] Comment on above: Performed By: #### I NFLUAB #### [facility] [address] [address] [address] Rian Vega INTERNAL CONTROLS Within Normal Limits Normal Within Normal Limits [facility] Comment on above: Performed By: #### I NFLUAB #### [facility] [address] [place] [address] Dr. Rian Vega URon 03-06-2022 , QUAL Negative Normal NEGATIVE [facility] Comment on above: Performed By: #### P REGU #### [facility] [address] [place] [address] Dr. Rian Vega Vital Signs Date Time Vital Sign Value Performing Clinician Migueli lity 08-27-2023 08:58-0500 Body mass index (BMI) [Ratio] 50.02 kg/m2 Latanya GARCIA Work Phone: [facility] 08-27-2023 08:58-0500 Body weight 149.23 kg Latanya GARCIA Work Phone: [facility] 08-27-2023 08:58-0500 Diastolic blood pressure 74 mm[Hg] Latanya GARCIA Work Phone: [facility] 08-27-2023 08:58-0500 Systolic blood pressure 122 mm[Hg] Latanya GARCIA Work Phone: [facility] Healthcare Encounters Encounter Date Encounter [...] Not Available Start: 09-03-2022 End: 09-03-2022 ambulatory [facility] Facility:H1 Start: 03-06-2022 End: 03-06-2022 [facility] Facility:H1 Procedures Date Procedure Procedure Detail Performing Clinician Start: 08-27-2023 Urnls dip stick/tabl et rgnt non-auto w/o micrscp Latanya GARCIA Work Phone: Plan of Treatment Date Care Activity Detail Author Start: 09-10-2023 End: 09-10-2023 Patient encounter procedure 09/10/2023 10:10 AM EST Routine [facility] [address] [place] [id number] Wenceslao Majano, DO [address] [place] [address] [facility] Payers Date Payer Category Payer Unknown BCBS BCBS [id number] 2022-Present [phone] [address] [place] [address] [id number] 2022 Unknown [id number] 2022 Medicaid ANTHE[place] BCBS [facility] ANTHE[place] BCBS [place] [id number] 2022-Present [address] [place] [address] [id number] 2022 Unknown [id number] 1993 Unknown [id number] [id number] 1993 Unknown [id number] [id number] 1993 Unknown [id number] 2.16.840.1.995692.3.579.2.1259 1993 Unknown [id number] 2.16.840.1.235192.3.579.2.1259 1993 Unknown [id number] 2.16.840.1.826826.3.579.2.1259 1993 Unknown [id number] 2.16.840.1.384205.3.579.2.1259 1993 Unknown [id number] 2.16.840.1.077250.3.579.2.1259 1993 Unknown [id number] [id number] 1959 Unknown [id number] Self-pay Self Pay [id number] Unknown Self Pay [id number] Social History Date Type Detail Facility Tobacco smoking stat [facility] Unknown if ever smoked [facility] Start: 1995 Sex Assigned At Female F [facility] Start: 05-09-2023 [facility] History [...] Problems Past Medical History: Diagnosis Date Asthma ([facility]) Bipolar disorder ([facility]) Current every day smoker Genital herpes History of marijuana use HSV-2 (herpes simplex virus 2) infection Miscarriage 03/2019 Morbid obesity with BMI of 50.0-59.9, adult ([facility]) PCOS (polycystic ovarian syndrome) Vaginal burning Family [...] Procedure Laterality Date SECTION, CLASSIC 09/14/2012 elective [place] TONSILLECTOMY & ADENOIDECTOMY AGE 10/> 11/27/2012 No [...] JOSE Rincon documented in this encounter [facility] Clinical Note 03-06-2022 Note Date [...] by: YOHANA UGALDE Date: 2022-03-06 01:53 [facility] Evaluation note Note Date & Type Note Facility Evaluation note No assessment information availa [facility] Evaluation note Note Date & Type [...] and content) DATE CREATED AUTHOR 09/28/2022 [facility] DATE CREATED AUTHOR AUTHOR'S ORGANIZ ATION 09/10/2023 [facility] dical Specialists EPIC Reason for [...] BE BASED ON THE PRIMARY CLINICAL RECORDS. [facility] [employer] [facility]. provides no warranty or guarantee of the accuracy or completeness of information in this document.
== END 2023-09-18 20:46 | disposition home or self-care (01) ==
LOC: LAB 20:45
PROVIDERS: Visit Provider Obstetrics & Gynecology
DX: Z34.93 Encounter for supervision of normal pregnancy, unspecified, third trimester (principal)
CPT/HCPCS: 87081

== ENCOUNTER 2023-09-19 07:00 | Outpatient (OUT) | payer BC, MEDICAID, SELFPAY ==
--- OUTSIDE RECORDS SUMMARY | 2023-09-19 07:15 | XMS_ITS | CCD ---
Author Name Unknown Address [address] [place] [address] Organization [facility] Care Team Providers Care Thread Dresser Name Role Phone [facility] Primary Care Unavailable HERIBERTO ., MAREK Admitting Unavailable MAREK FLOOD Attending Unavailable MAREK FLOOD Consulting Unavailable [facility] Primary Care Unavailable EB GRANT Admitting Unavailable EB GRANT Attending Unavailable EB GRANT Consulting Unavailable YOHANA UGALDE Unavailable Unavailable Primary Care Provider UnavailLATANYA Day Attending Unavailable LATANYA CHOU Attending Unavailable WENCESLAO MAJANO Attending Unavailable LATANYA CHOU Attending Unavailable WENCESLAO MAJANO Attending Unavailable WENCESLAO MAJANO Attending Unavailable Medications Current Medications Medication Drug Class(es) Dates Sig (Normalized) Sig (Original) [id number] 200 actuat albuterol 0.09 mg/actuat metered dose [...] 03-07-2022 Chronic Other aftercare (1 source) Other assisted (current) drug therapy; Translations: [OTH SENIOR LIVING CURRENT DRUG THERAPY] Onset: 09-05-2022 Episodic Other aftercare (1 source) 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; Translations: [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 DX] Onset: 09-05-2022 Episodic [...] UA Negative Negative - 4(70) +++ mg/dL [facility] Blood, UA Negative Negative - 50 Aureliano/mcL [facility] Clarity, UA Clear [facility] Color, UA Yellow [facility] Glucose, UA Negative Negative - 2000(110) ++++ mg/dL [facility] Interpretation and review of laboratory results Abnormal [facility] Ketones, UA Positive Negative - 160(16) ++++ mg/dL [facility] Comment on above: 15 mg Leukocytes, UA Trace Negative - 500+++ Amanda/mcL [facility] Nitrite, UA Negative Negative - Positive [facility] pH, UA 6.5 5 - 9 [facility] Protein, UA Positive Negative - 2000(20) ++++ mg/dL [facility] Comment on above: 30 mg Spec Grav, UA 1.025 1 - 1.03 [facility] Urobilinogen, UA 0.2 0.2 - 12 mg/dL [facility] Covid-19 PCR ([facility])on 02-20 SARS-CoV-2 (COVID-19) RNA HERIBERTO+probe Ql (Unsp spec) Not detected Normal NOT DETECTED [facility] Comment on above: Result Comment: [...] for this test is supported by the [place] of Health and Human Service's declaration that [...] used). Performed By: #### C VDTBH #### [facility] [address] [place] [address] Dr. Rian Vega INFLUENZA A AND B AGon [facility] Normal [facility] Comment on above: Result Comment: Nega tive for Flu A protein angiten. Infection due to Flu A cannot be ruled out. Flu A angiten in the sample may be below the detection limit of the test. Performed By: #### I NFLUAB #### [facility] [address] [place] [address] Dr. Rian Vega INFLUBNEG SEE BELOW Normal [facility] Comment on above: Result Comment: Nega tive for Flu B protein antigen. Infection due to Flu B cannot be ruled out. Flu B antigen in the sample may be below the detection limit of the test. Performed By: #### I NFLUAB #### [facility] [address] [address] [address] Rian Vega INFLUENZA A AG Negative Normal NEGATIVE SEE COMMENT [facility] Comment on above: Performed By: #### I NFLUAB #### [facility] [address] [address] [address] Rian Vega INFLUENZA B AG Negative Normal NEGATIVE SEE COMMENT [facility] Comment on above: Performed By: #### I NFLUAB #### [facility] [address] [address] [address] Rian Vega INTERNAL CONTROLS Within Normal Limits Normal Within Normal Limits [facility] Comment on above: Performed By: #### I NFLUAB #### [facility] [address] [place] [address] Dr. Rian Vega URon 03-06-2022 , QUAL Negative Normal NEGATIVE [facility] Comment on above: Performed By: #### P REGU #### [facility] [address] [place] [address] Dr. Rian Vega Vital Signs Date Time Vital Sign Value Performing Clinician Migueli lity 08-27-2023 08:58-0500 Body mass index (BMI) [Ratio] 50.02 kg/m2 Latanya GARCIA Work Phone: [facility] 08-27-2023 08:58-0500 Body weight 149.23 kg Latanya GARCIA Work Phone: [facility] 08-27-2023 08:58-0500 Diastolic blood pressure 74 mm[Hg] Latanya GARCIA Work Phone: [facility] 08-27-2023 08:58-0500 Systolic blood pressure 122 mm[Hg] Latanya GARCIA Work Phone: [facility] Encounters Encounter Date Encounter Type Care [...] Not Available Start: 09-03-2022 End: 09-03-2022 ambulatory [facility] Facility:H1 Start: 03-06-2022 End: 03-06-2022 [facility] Facility:H1 Procedures Date Procedure Procedure Detail Performing Clinician Start: 08-27-2023 Urnls dip stick/tabl et rgnt non-auto w/o micrscp Latanya GARCIA Work Phone: Plan of Treatment Date Care Activity Detail Author Start: 09-10-2023 End: 09-10-2023 Patient encounter procedure 09/10/2023 10:10 AM EST Routine [facility] [address] [place] [id number] Wenceslao Majano, DO [address] [place] [address] [facility] Payers Date Payer Category Payer Unknown BCBS BCBS xxxxxx [id number] 2022-Present [phone] [address] [place] [address] [id number] 2022 Unknown [id number] 2022 Medicaid ANTHEM BCBS [facility] ANTHEM BCBS MEDICA[place] [id number] 2022-Present [address] [place] [address] [id number] 2022 Unknown [id number] 1c097 1995 Unknown [id number] 1993 Unknown [id number] [id number] 1993 Unknown [id number] [id number] 1993 Unknown [id number] 2.16.840.1.500120.3.579.2.1259 1993 Unknown [id number] [id number] 1993 Unknown [id number] [id number] 1993 Unknown [id number] [id number] 1993 Unknown [id number] [id number] 1959 Unknown [id number] Self-pay Self Pay [id number] Unknown Self Pay [id number] Social History Date Type Detail Facility Tobacco smoking stat [facility] Unknown if ever smoked [facility] Start: 1995 Sex Assigned At Female [facility] Start: 05-09-2023 [facility] [...] Problems Past Medical History: Diagnosis Date Asthma ([facility]) Bipolar disorder ([facility]) Current every day smoker Genital herpes History of marijuana use HSV-2 (herpes simplex virus 2) infection Miscarriage 03/2019 Morbid obesity with BMI of 50.0-59.9, adult ([facility]) PCOS (polycystic ovarian syndrome) Vaginal [...] Procedure Laterality Date SECTION, CLASSIC 09/14/2012 elective ID TONSILLECTOMY & ADENOIDECTOMY AGE 10/> 11/27/2012 No [...] of: JOSE Rincon documented in this encounter [facility] Clinical Note 03-06-2022 Note Date [...] by: YOHANA UGALDE Date: 2022-03-06 01:53 [facility] Evaluation note Note Date & Type Note Facility Evaluation note No assessment information availa [facility] Evaluation note Note Date & Type [...] and content) DATE CREATED AUTHOR 09/28/2022 [facility] DATE CREATED AUTHOR AUTHOR'S ORGANIZ ATION 09/10/2023 [facility] dical Specialists EPIC Reason for Visit (unrecogniz [...] BE BASED ON THE PRIMARY CLINICAL RECORDS. [facility] [employer] [facility]. provides no warranty or guarantee of the accuracy or completeness of information in this document.
--- NOTE | 2023-09-19 08:51 | US_ITS ---
[address] [address] Patient Name: THERESA SU MRN: [facility]:[id number] date: 1995 Sex: F Assigned Patient Location: [facility] Current Patient Location: [facility] Accession/Order Number: [id number] Exam Date: 09/19/2023 08:52 Report Date: 09/19/2023 09:42 At the request of: MELANIE CHOU Procedure: US OB BPP w non-stress EXAMINATION: US OB BPP w non-stress HISTORY: EXCESSIVE GWOTH O36.63X0 COMPARISON: No relevant comparison available. TECHNIQUE: Ultrasound biophysical profile was performed in the radiology department. FINDINGS: BREATHING MOVEMENTS: 2.0 GROSS BODY MOVEMENTS: 2.0 TONE: 2.0 QUALITATIVE AMNIOTIC FLUID VOLUME: 2.0 PRESENTATION: CEPHALIC HEART RATE: 133.7 bpm H.B./min AMNIOTIC FLUID VOLUME: 14.9 cm cm GESTATIONAL AGE: 36 weeks 5 days CONCLUSION: Total biophysical profile score: 8.0 Electronically authenticated by: DIAMANTE ALDRICH Date: 09/19/2023 09:42
== END 2023-09-19 09:25 | disposition home or self-care (01) ==
LOC: US 07:13 → FBC 08:38
PROVIDERS: Visit Provider Physician Assistant
DX: O36.63X0 Maternal care for excessive fetal growth, third trimester, not applicable or unspecified (principal); Z3A.36 36 weeks gestation of pregnancy
CPT/HCPCS: 76818

== ENCOUNTER 2023-09-22 03:14 | Outpatient (OUT) | payer BC, MEDICAID, SELFPAY ==
--- OUTSIDE RECORDS SUMMARY | 2023-09-22 03:17 | XMS_ITS | CCD ---
Author Name Unknown Address [address] [place] [address] Organization [facility] Care Team Providers Care Plastic Production Machine Setter Name Role Phone [facility] Primary Care Unavailable HERIBERTO ., MAREK Admitting Unavailable MAREK FLOOD Attending Unavailable MAREK FLOOD Consulting Unavailable [facility] Primary Care Unavailable EB GRANT Admitting Unavailable EB GRANT Attending Unavailable EB GRANT Consulting Unavailable YOHANA UGALDE Unavailable Unavailable Primary Care Provider UnavailLATANYA Day Attending Unavailable LATANYA CHOU Attending Unavailable WENCESLAO MAJANO Attending Unavailable LATANYA CHOU Attending Unavailable WENCESLAO MAJANO Attending Unavailable WENCESLAO MAJANO Attending Unavailable Medications Current Medications Medication Drug Class(es) Dates Sig (Normalized) Sig (Original) [id number] 200 actuat albuterol 0.09 mg/actuat metered dose [...] 03-07-2022 Chronic Other aftercare (1 source) Other buttermaker (current) drug therapy; Translations: [OTH PORTABLE POWER TOOL REPAIRER CURRENT DRUG THERAPY] Onset: 09-05-2022 Episodic Other aftercare (1 source) snf (current) use of oral hypoglycemic drugs; Translations: [PORTABLE POWER TOOL REPAIRER USE ORAL HYPOGLYCEMIC DX] Onset: 09-05-2022 Episodic [...] UA Negative Negative - 4(70) +++ mg/dL [facility] Blood, UA Negative Negative - 50 Aureliano/mcL [facility] Clarity, UA Clear [facility] Color, UA Yellow [facility] Glucose, UA Negative Negative - 2000(110) ++++ mg/dL [facility] Interpretation and review of laboratory results Abnormal [facility] Ketones, UA Positive Negative - 160(16) ++++ mg/dL [facility] Comment on above: 15 mg Leukocytes, UA Trace Negative - 500+++ Amanda/mcL [facility] Nitrite, UA Negative Negative - Positive [facility] pH, UA 6.5 5 - 9 [facility] Protein, UA Positive Negative - 2000(20) ++++ mg/dL [facility] Comment on above: 30 mg Spec Grav, UA 1.025 1 - 1.03 [facility] Urobilinogen, UA 0.2 0.2 - 12 mg/dL [facility] Covid-19 PCR ([facility])on 02-20 SARS-CoV-2 (COVID-19) RNA HERIBERTO+probe Ql (Unsp spec) Not detected Normal NOT DETECTED [facility] Comment on above: Result Comment: [...] for this test is supported by the [employer] of Health and Human Service's declaration that [...] used). Performed By: #### C VDTBH #### [facility] [address] [place] [address] Dr. Rian Vega INFLUENZA A AND B AGon 03-[address] [facility] Normal [facility] Comment on above: Result Comment: Nega tive for Flu A protein angiten. Infection due to Flu A cannot be ruled out. Flu A angiten in the sample may be below the detection limit of the test. Performed By: #### I NFLUAB #### [facility] [address] [place] [address] Dr. Rian Vega INFLUBNEG SEE BELOW Normal [facility] Comment on above: Result Comment: Nega tive for Flu B protein antigen. Infection due to Flu B cannot be ruled out. Flu B antigen in the sample may be below the detection limit of the test. Performed By: #### I NFLUAB #### [facility] [address] [address] [address] Rian Vega INFLUENZA A AG Negative Normal NEGATIVE SEE COMMENT [facility] Comment on above: Performed By: #### I NFLUAB #### [facility] [address] [address] [address] Rian Vega INFLUENZA B AG Negative Normal NEGATIVE SEE COMMENT [facility] Comment on above: Performed By: #### I NFLUAB #### [facility] [address] [address] [address] Rian Vega INTERNAL CONTROLS Within Normal Limits Normal Within Normal Limits [facility] Comment on above: Performed By: #### I NFLUAB #### [facility] [address] [place] [address] Dr. Rian Vega URon 03-06-2022 , QUAL Negative Normal NEGATIVE [facility] Comment on above: Performed By: #### P REGU #### [facility] [address] [place] [address] Dr. Rian Vega Vital Signs Date Time Vital Sign Value Performing Clinician Migueli lity 08-27-2023 08:58-0500 Body mass index (BMI) [Ratio] 50.02 kg/m2 Latanya GARCIA Work Phone: [facility] 08-27-2023 08:58-0500 Body weight 149.23 kg Latanya GARCIA Work Phone: [facility] 08-27-2023 08:58-0500 Diastolic blood pressure 74 mm[Hg] Latanya GARCIA Work Phone: [facility] 08-27-2023 08:58-0500 Systolic blood pressure 122 mm[Hg] Latanya GARCIA Work Phone: [facility] Healthcare Encounters Encounter Date Encounter Type Care [...] Available Start: 09-03-2022 End: 09-03-2022 ambulatory [facility] Facility:H1 Start: 03-06-2022 End: 03-06-2022 [facility] Facility:H1 Procedures Date Procedure Procedure Detail Performing Clinician Start: 08-27-2023 Urnls dip stick/tabl et rgnt non-auto w/o micrscp Latanya GARCIA Work Phone: Plan of Treatment Date Care Activity Detail Author Start: 09-10-2023 End: 09-10-2023 Patient encounter procedure 09/10/2023 10:10 AM EST Routine [facility] [address] [place] [id number] Wenceslao Majano, DO [address] [place] [address] [facility] Payers Date Payer Category Payer Unknown BCBS BCBS xxxxxx [id number] 2022-Present [phone] [address] [place] [address] [id number] 2022 Unknown [id number] 2022 Medicaid ANTHEM BCBS [facility] ANTHEM BCBS MEDICAID [place] [id number] 2022-Present [address] [place] [address] [id number] 2022 Unknown [id number] 1c097 1995 Unknown [id number] [id number] 1993 Unknown [id number] 2.16.840.1.521518.3.579.2.593 1993 Unknown [id number] 2.16.840.1.991508.3.579.2.1259 1993 Unknown [id number] 2.16.840.1.066708.3.579.2.1259 1993 Unknown [id number] 2.16.840.1.234904.3.579.2.1259 1993 Unknown [id number] 2.16.840.1.230603.3.579.2.1259 1993 Unknown [id number] 2.16.840.1.268610.3.579.2.1259 1993 Unknown [id number] 2.16.840.1.417788.3.579.2.1259 1959 Unknown [id number] Self-pay Self Pay [id number] Unknown Self Pay [id number] Social History Date Type Detail Facility Tobacco smoking stat [facility] Unknown if ever smoked [facility] Start: 1995 Sex Assigned At Female [facility] Start: 05-09-2023 [facility] [...] Problems Past Medical History: Diagnosis Date Asthma ([facility]) Bipolar disorder ([facility]) Current every day smoker Genital herpes History of marijuana use HSV-2 (herpes simplex virus 2) infection Miscarriage 03/2019 Morbid obesity with BMI of 50.0-59.9, adult ([facility]) PCOS (polycystic ovarian syndrome) Vaginal [...] Procedure Laterality Date SECTION, CLASSIC 09/14/2012 elective ME TONSILLECTOMY & ADENOIDECTOMY AGE 10/> 11/27/2012 No [...] of: JOSE Rincon documented in this encounter [facility] Clinical Note 03-06-2022 Note Date & Type [...] by: YOHANA UGALDE Date: 2022-03-06 01:53 [facility] Evaluation note Note Date & Type Note Facility Evaluation note No assessment information availa [facility] Evaluation note Note Date & Type [...] and content) DATE CREATED AUTHOR 09/28/2022 The [facility] DATE CREATED AUTHOR AUTHOR'S ORGANIZ ATION 09/10/2023 [facility] dical Specialists EPIC Reason for Visit [...] BE BASED ON THE PRIMARY CLINICAL RECORDS. [facility] [employer] [facility]. provides no warranty or guarantee of the accuracy or completeness of information in this document.
[2023-09-22 07:18] VITALS: BP 133/70; PULSE 73
== END 2023-09-22 07:45 | disposition home or self-care (01) ==
LOC: FBCO 03:14 → FBC 07:12
PROVIDERS: Visit Provider Obstetrics & Gynecology
DX: O36.63X0 Maternal care for excessive fetal growth, third trimester, not applicable or unspecified (principal)
CPT/HCPCS: 59025

== ENCOUNTER 2023-09-26 07:00 | Outpatient (OUT) | payer BC, MEDICAID, SELFPAY ==
--- OUTSIDE RECORDS SUMMARY | 2023-09-26 07:14 | XMS_ITS | CCD ---
Author Name Unknown Address [address] [place] [address] Organization [facility] Care Team Providers Care Rn Obgyn Name Role Phone [facility] Primary Care Unavailable HERIBERTO ., MARKE Admitting Unavailable MAREK FLOOD Attending Unavailable MAREK FLOOD Consulting Unavailable [facility] Primary Care Unavailable EB GRANT Admitting Unavailable EB GRANT Attending Unavailable EB GRANT Consulting Unavailable YOHANA UGALDE Unavailable Unavailable Primary Care Provider UnavailLATANYA Day Attending Unavailable LATANYA CHOU Attending Unavailable WENCESLAO MAJANO Attending Unavailable LATANYA CHOU Attending Unavailable WENCESLAO MAJANO Attending Unavailable WENCESLAO MAJANO Attending Unavailable Medications Current Medications Medication Drug Class(es) Dates Sig (Normalized) Sig (Original) [id number] 200 actuat albuterol 0.09 mg/actuat metered dose [...] 03-07-2022 Chronic Other aftercare (1 source) Other terminal manager (current) drug therapy; Translations: [OTH LOCATION MANAGER CURRENT DRUG THERAPY] Onset: 09-05-2022 Episodic Other aftercare (1 source) shelter (current) use of oral hypoglycemic drugs; Translations: [LOCATION MANAGER USE ORAL HYPOGLYCEMIC DX] Onset: 09-05-2022 [...] UA Negative Negative - 4(70) +++ mg/dL [facility] Blood, UA Negative Negative - 50 Aureliano/mcL [facility] Clarity, UA Clear [facility] Color, UA Yellow [facility] Glucose, UA Negative Negative - 2000(110) ++++ mg/dL [facility] Interpretation and review of laboratory results Abnormal [facility] Healthcare Ketones, UA Positive Negative - 160(16) ++++ mg/dL [facility] Comment on above: 15 mg Leukocytes, UA Trace Negative - 500+++ Amanda/mcL [facility] Nitrite, UA Negative Negative - Positive [facility] pH, UA 6.5 5 - 9 [facility] Healthcar e Protein, UA Positive Negative - 2000(20) ++++ mg/dL [facility] Comment on above: 30 mg Spec Grav, UA 1.025 1 - 1.03 [facility] Urobilinogen, UA 0.2 0.2 - 12 mg/dL [facility] Healthcar e Covid-19 PCR ([facility])on 02-20 SARS-CoV-2 (COVID-19) RNA HERIBERTO+probe Ql (Unsp spec) Not detected Normal NOT DETECTED [facility] Comment on above: Result Comment: When [...] for this test is supported by the Target Network Analyst of Health and Human Service's declaration that [...] used). Performed By: #### C VDTBH #### [facility] [address] [place] [address] Dr. Rian Vega INFLUENZA A AND B AGon 03-06 [facility] SEE BELOW Normal [facility] Comment on above: Result Comment: Nega tive for Flu A protein angiten. Infection due to Flu A cannot be ruled out. Flu A angiten in the sample may be below the detection limit of the test. Performed By: #### I NFLUAB #### [facility] [address] [place] [address] Dr. Rian Vega INFLUBNEG SEE BELOW Normal [facility] Comment on above: Result Comment: Nega tive for Flu B protein antigen. Infection due to Flu B cannot be ruled out. Flu B antigen in the sample may be below the detection limit of the test. Performed By: #### I NFLUAB #### [facility] [address] [address] [address] Rian Vega INFLUENZA A AG Negative Normal NEGATIVE SEE COMMENT [facility] Comment on above: Performed By: #### I NFLUAB #### [facility] [address] [address] [address] Rian Vega INFLUENZA B AG Negative Normal NEGATIVE SEE COMMENT [facility] Comment on above: Performed By: #### I NFLUAB #### [facility] [address] [address] [address] Rian Vega INTERNAL CONTROLS Within Normal Limits Normal Within Normal Limits [facility] Comment on above: Performed By: #### I NFLUAB #### [facility] [address] [place] [address] Dr. Rian Vega URon 03-06-2022 , QUAL Negative Normal NEGATIVE [facility] Comment on above: Performed By: #### P REGU #### [facility] [address] [place] [address] Dr. Rian Vega Vital Signs Date Time Vital Sign Value Performing Clinician Migueli lity 08-27-2023 08:58-0500 Body mass index (BMI) [Ratio] 50.02 kg/m2 Latanya GARCIA Work Phone: [facility] 08-27-2023 08:58-0500 Body weight 149.23 kg Latanya GARCIA Work Phone: [facility] 08-27-2023 08:58-0500 Diastolic blood pressure 74 mm[Hg] Latanya GARCIA Work Phone: [facility] 08-27-2023 08:58-0500 Systolic blood pressure 122 mm[Hg] Latanya GARCIA Work Phone: [facility] Healthcare Encounters Encounter Date Encounter [...] Not Available Start: 09-03-2022 End: 09-03-2022 ambulatory [facility] Facility:H1 Start: 03-06-2022 End: 03-06-2022 [facility] Facility:H1 Procedures Date Procedure Procedure Detail Performing Clinician Start: 08-27-2023 Urnls dip stick/tabl et rgnt non-auto w/o micrscp Latanya GARCIA Work Phone: Plan of Treatment Date Care Activity Detail Author Start: 09-10-2023 End: 09-10-2023 Patient encounter procedure 09/10/2023 10:10 AM EST Routine [facility] [address] [place] [id number] Wenceslao Majano, DO [address] [place] [address] [facility] Payers Date Payer Category Payer Unknown BCBS BCBS xxxxxx [id number] 2022-Present [phone] [address] [place] [address] [id number] 2022 Unknown [id number] 2022 Medicaid ANTHEM BCBS [facility] ANTHEM BCBS [place]ICA[place] [id number] 2022-Present [address] [place] [address] [id number] 2022 Unknown [id number] 1995 Unknown [id number] 1993 Unknown [id number] 1993 Unknown [id number] [id number] 1993 Unknown [id number] [id number] 1993 Unknown [id number] [id number] 1993 Unknown [id number] [id number] 1993 Unknown [id number] [id number] 1993 Unknown [id number] 1959 Unknown [id number] Self-pay Self Pay [id number] Unknown Self Pay [id number] Social History Date Type Detail Facility Tobacco smoking stat [facility] Unknown if ever smoked [facility] Start: 1995 Sex Assigned At Female F [facility] Start: 05-09-2023 [facility] History of [...] Problems Past Medical History: Diagnosis Date Asthma ([facility]) Bipolar disorder ([facility]) Current every day smoker Genital herpes History of marijuana use HSV-2 (herpes simplex virus 2) infection Miscarriage 03/2019 Morbid obesity with BMI of 50.0-59.9, adult ([facility]) PCOS (polycystic ovarian syndrome) Vaginal burning Family [...] Procedure Laterality Date SECTION, CLASSIC 09/14/2012 elective [place] TONSILLECTOMY & ADENOIDECTOMY AGE 10/> 11/27/2012 No [...] of: JOSE Rincon documented in this encounter [facility] Clinical Note 03-06-2022 Note Date & Type [...] by: YOHANA UGALDE Date: 2022-03-06 01:53 [facility] Evaluation note Note Date & Type Note Facility Evaluation note No assessment information availa [facility] Evaluation note Note Date & [...] and content) DATE CREATED AUTHOR 09/28/2022 [facility] DATE CREATED AUTHOR AUTHOR'S ORGANIZ ATION 09/10/2023 [facility] dical Specialists EPIC Reason for Visit [...] BE BASED ON THE PRIMARY CLINICAL RECORDS. [facility] [employer] [facility]. provides no warranty or guarantee of the accuracy or completeness of information in this document.
--- NOTE | 2023-09-26 08:36 | US_ITS ---
[address] [address] Patient Name: THERESA SU MRN: [facility]:[id number] date: 1995 Sex: F Assigned Patient Location: [facility] Current Patient Location: [facility] Accession/Order Number: [id number] Exam Date: 09/26/2023 08:40 Report Date: 09/26/2023 09:54 At the request of: WENCESLAO FRASER Procedure: US OB BPP w non-stress EXAMINATION: US OB BPP w non-stress HISTORY: EXCESSIVE WEIGHT O36.63X0 COMPARISON: No relevant comparison available. TECHNIQUE: Ultrasound biophysical profile was performed in the radiology department. non-reactive stress testing was performed by nursing staff in the birthing center. FINDINGS: BREATHING MOVEMENTS: 2.0 GROSS BODY MOVEMENTS: 2.0 TONE: 2.0 QUALITATIVE AMNIOTIC FLUID VOLUME: 2.0 PRESENTATION: CEPHALIC HEART RATE: 126.2 bpm H.B./min AMNIOTIC FLUID VOLUME: 16.9 cm cm GESTATIONAL AGE: 37 weeks 5 days CONCLUSION: Total biophysical profile score: 8.0 Electronically authenticated by: DIAMANTE ALDRICH Date: 09/26/2023 09:54
--- NOTE | 2023-09-26 08:36 | US_ITS ---
[address] [address] Patient Name: THERESA SU MRN: [facility]:[id number] date: 1995 Sex: F Assigned Patient Location: [facility] Current Patient Location: [facility] Accession/Order Number: [id number] Exam Date: 09/26/2023 08:40 Report Date: 09/26/2023 10:58 At the request of: WENCESLAO FRASER Procedure: US OB growth EXAMINATION: US OB growth HISTORY: EXCESSIVE WEIGHT O36.63X0 COMPARISON: No relevant comparison available. FINDINGS: Heart Rate: 126.2 bpm Amniotic Fluid Volume: 16.9 cm Number: 1.0 Position: CEPHALIC Maximum Vertical Pocket: 7.2 cm cm 2.7 cm cm 3.9 cm cm 3.1 cm cm BIOMETRY: BPD: 9.5 cm cm; 38 weeks 4 days; 88% HC: 34.3 cmcm; 39 weeks 4 days , 72% AC: 31.9 cm cm; 35 weeks 5 days, 15% FL: 7.2 cm cm; 37 weeks 0 days; 33.4 % % EFW: 3035.8 grams, 6lb 11oz, 36% FL/AC: 22.7 FL/BPD: 76.4 HC/AC: 1.1 GESTATIONAL AGE: Age by EDC: 37 weeks 5 days [facility] by EDC: 10/12/23 Age by US: 27w5d ASHLEY by US: 10/12/23 US/US OB growth IMPRESSION: Normal interval growth Electronically authenticated by: DIAMANTE ALDRICH Date: 09/26/2023 10:58
[2023-09-26 08:41] VITALS: BP 135/61; PULSE 89
== END 2023-09-26 09:05 | disposition home or self-care (01) ==
LOC: US 07:11 → FBC 08:35
PROVIDERS: Visit Provider Obstetrics & Gynecology
DX: O36.63X0 Maternal care for excessive fetal growth, third trimester, not applicable or unspecified (principal); Z3A.37 37 weeks gestation of pregnancy
CPT/HCPCS: 76816; 76818

== ENCOUNTER 2023-09-29 07:30 | Outpatient (OUT) | payer BC, MEDICAID, SELFPAY ==
--- OUTSIDE RECORDS SUMMARY | 2023-09-29 07:34 | XMS_ITS | CCD ---
Author Name Unknown Address [address] [place] [address] Organization [facility] Care Team Providers Care Youth Pastor Name Role Phone [facility] Primary Care Unavailable HERIBERTO ., MAREK Admitting Unavailable MAREK FLOOD Attending Unavailable MAREK FLOOD Consulting Unavailable [facility] Primary Care Unavailable EB GRANT Admitting Unavailable EB GRANT Attending Unavailable EB GRANT Consulting Unavailable YOHANA UGALDE Unavailable Unavailable Primary Care Provider UnavailLATANYA Day Attending Unavailable LATANYA CHOU Attending Unavailable WENCESLAO MAJANO Attending Unavailable LATANYA CHOU Attending Unavailable WENCESLAO MAJANO Attending Unavailable WENCESLAO MAJANO Attending Unavailable Medications Current Medications Medication Drug Class(es) Dates Sig (Normalized) Sig (Original) [id number] 200 actuat albuterol 0.09 mg/actuat metered dose [...] 03-07-2022 Chronic Other aftercare (1 source) Other emt intermediate (current) drug therapy; Translations: [OTH TRAVEL JOURNALIST CURRENT DRUG THERAPY] Onset: 09-05-2022 Episodic Other aftercare (1 source) longterm (current) use of oral hypoglycemic drugs; Translations: [TRAVEL JOURNALIST USE ORAL HYPOGLYCEMIC DX] Onset: 09-05-2022 Episodic [...] Negative Negative - 4(70) +++ mg/dL [facility] Blood, UA Negative Negative - 50 Aureliano/mcL [facility] Clarity, UA Clear [facility] Color, UA Yellow [facility] Glucose, UA Negative Negative - 2000(110) ++++ mg/dL [facility] Interpretation and review of laboratory results Abnormal [facility] Healthcare Ketones, UA Positive Negative - 160(16) ++++ mg/dL [facility] Comment on above: 15 mg Leukocytes, UA Trace Negative - 500+++ Amanda/mcL [facility] Nitrite, UA Negative Negative - Positive [facility] pH, UA 6.5 5 - 9 [facility] Healthcar e Protein, UA Positive Negative - 2000(20) ++++ mg/dL [facility] Comment on above: 30 mg Spec Grav, UA 1.025 1 - 1.03 [facility] Urobilinogen, UA 0.2 0.2 - 12 mg/dL [facility] Healthcar e Covid-19 PCR ([facility])on 02-20 SARS-CoV-2 (COVID-19) RNA HERIBERTO+probe Ql (Unsp spec) Not detected Normal NOT DETECTED [facility] Comment on above: Result Comment: When [...] for this test is supported by the Sheet Metal Duct Installer Helper of Health and Human Service's declaration that [...] used). Performed By: #### C VDTBH #### [facility] [address] [place] [address] Dr. Rian Vega INFLUENZA A AND B AGon 03-06 [facility] SEE BELOW Normal [facility] Comment on above: Result Comment: Nega tive for Flu A protein angiten. Infection due to Flu A cannot be ruled out. Flu A angiten in the sample may be below the detection limit of the test. Performed By: #### I NFLUAB #### [facility] [address] [place] [address] Dr. Rian Vega INFLUBNEG SEE BELOW Normal [facility] Comment on above: Result Comment: Nega tive for Flu B protein antigen. Infection due to Flu B cannot be ruled out. Flu B antigen in the sample may be below the detection limit of the test. Performed By: #### I NFLUAB #### [facility] [address] [address] [address] Rian Vega INFLUENZA A AG Negative Normal NEGATIVE SEE COMMENT [facility] Comment on above: Performed By: #### I NFLUAB #### [facility] [address] [address] [address] Rian Vega INFLUENZA B AG Negative Normal NEGATIVE SEE COMMENT [facility] Comment on above: Performed By: #### I NFLUAB #### [facility] [address] [address] [address] Rian Vega INTERNAL CONTROLS Within Normal Limits Normal Within Normal Limits [facility] Comment on above: Performed By: #### I NFLUAB #### [facility] [address] [place] [address] Dr. Rian Vega URon 03-06-2022 , QUAL Negative Normal NEGATIVE [facility] Comment on above: Performed By: #### P REGU #### [facility] [address] [place] [address] Dr. Rian Vega Vital Signs Date Time Vital Sign Value Performing Clinician Migueli lity 08-27-2023 08:58-0500 Body mass index (BMI) [Ratio] 50.02 kg/m2 Latanya GARCIA Work Phone: [facility] 08-27-2023 08:58-0500 Body weight 149.23 kg Latanya GARCIA Work Phone: [facility] 08-27-2023 08:58-0500 Diastolic blood pressure 74 mm[Hg] Latanya GARCIA Work Phone: [facility] 08-27-2023 08:58-0500 Systolic blood pressure 122 mm[Hg] Latanya GARCIA Work Phone: [facility] Healthcare Encounters Encounter Date [...] Not Available Start: 09-03-2022 End: 09-03-2022 ambulatory [facility] Facility:H1 Start: 03-06-2022 End: 03-06-2022 [facility] Facility:H1 Procedures Date Procedure Procedure Detail Performing Clinician Start: 08-27-2023 Urnls dip stick/tabl et rgnt non-auto w/o micrscp Latanya GARCIA Work Phone: Plan of Treatment Date Care Activity Detail Author Start: 09-10-2023 End: 09-10-2023 Patient encounter procedure 09/10/2023 10:10 AM EST Routine [facility] [address] [place] [id number] Wenceslao Majano, DO [address] [place] [address] [facility] Payers Date Payer Category Payer Unknown BCBS BCBS xxxxxx [id number] 2022-Present [phone] [address] [place] [address] [id number] 2022 Unknown [id number] 2022 Medicaid ANTHEM BCBS [facility] ANTHEM BCBS MEDICA[place] [id number] 2022-Present [address] [place] [address] [id number] 2022 Unknown [id number] 1995 Unknown [id number] 1993 Unknown [id number] 1993 Unknown [id number] [id number] 1993 Unknown [id number] 1993 Unknown [id number] 1993 Unknown [id number] 1993 Unknown [id number] 1993 Unknown [id number] 1959 Unknown [id number] Self-pay Self Pay [id number] Unknown Self Pay [id number] Social History Date Type Detail Facility Tobacco smoking stat [facility] Unknown if ever smoked [facility] Start: 1995 Sex Assigned At Female F [facility] Start: 05-09-2023 [facility] History [...] History of Present illness Narrative 08-27-2023 JOSE Rincno - 08/27/2023 8:50 AM EST Note Date [...] Problems Past Medical History: Diagnosis Date Asthma ([facility]) Bipolar disorder ([facility]) Current every day smoker Genital herpes History of marijuana use HSV-2 (herpes simplex virus 2) infection Miscarriage 03/2019 Morbid obesity with BMI of 50.0-59.9, adult ([facility]) PCOS (polycystic [...] Procedure Laterality Date SECTION, CLASSIC 09/14/2012 elective [place] TONSILLECTOMY & ADENOIDECTOMY AGE 10/> 11/27/2012 No [...] JOSE Rincon documented in this encounter [facility] Clinical Note 03-06-2022 Note Date & [...] by: YOHANA UGALDE Date: 2022-03-06 01:53 [facility] Evaluation note Note Date & Type Note Facility Evaluation note No assessment information availa [facility] Evaluation note Note Date [...] and content) DATE CREATED AUTHOR 09/28/2022 [facility] DATE CREATED AUTHOR AUTHOR'S ORGANIZ ATION 09/10/2023 [facility] dical Specialists EPIC Reason for Visit (unrecogniz [...] BE BASED ON THE PRIMARY CLINICAL RECORDS. [facility] [employer] [facility]. provides no warranty or guarantee of the accuracy or completeness of information in this document.
== END 2023-09-29 08:05 | disposition home or self-care (01) ==
LOC: FBCO 07:31 → FBC 07:48
PROVIDERS: Visit Provider Obstetrics & Gynecology
DX: O36.63X0 Maternal care for excessive fetal growth, third trimester, not applicable or unspecified (principal)
CPT/HCPCS: 59025

== ENCOUNTER 2023-09-30 09:19 | Observation (INO) | payer BC, MEDICAID, SELFPAY ==
[2023-09-30 09:27] VITALS: BP 118/67; PULSE 73; RESP 18; TEMP 36.7; O2SAT 97; BMI 36.5
--- OUTSIDE RECORDS SUMMARY | 2023-09-30 09:32 | XMS_ITS | CCD ---
Author Name Unknown Address [address] [place] [address] Organization [facility] Care Team Providers Care Mystery Shopper Name Role Phone [facility] Primary Care Unavailable HERIBERTO ., MAREK Admitting Unavailable MAREK FLOOD Attending Unavailable MAREK FLOOD Consulting Unavailable [facility] Primary Care Unavailable EB GRANT Admitting Unavailable EB GRANT Attending Unavailable EB GRANT Consulting Unavailable YOHANA UGALDE Unavailable Unavailable Primary Care Provider UnavailLATANYA Day Attending Unavailable LATANYA CHOU Attending Unavailable WENCESLAO MAJANO Attending Unavailable LATANYA CHOU Attending Unavailable WENCESLAO MAJANO Attending Unavailable WENCESLAO MAJANO Attending Unavailable Medications Current Medications Medication Drug Class(es) Dates Sig (Normalized) Sig (Original) [id number] 200 actuat albuterol 0.09 mg/actuat metered dose [...] 03-07-2022 Chronic Other aftercare (1 source) Other fdc (current) drug therapy; Translations: [OTH LOCATOR CURRENT DRUG THERAPY] Onset: 09-05-2022 Episodic Other aftercare (1 source) 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; Translations: [LOCATOR USE ORAL HYPOGLYCEMIC DX] Onset: 09-05-2022 Episodic [...] UA Negative Negative - 4(70) +++ mg/dL [facility] Blood, UA Negative Negative - 50 Aureliano/mcL [facility] Clarity, UA Clear [facility] Color, UA Yellow [facility] Glucose, UA Negative Negative - 2000(110) ++++ mg/dL [facility] Interpretation and review of laboratory results Abnormal [facility] Healthcare Ketones, UA Positive Negative - 160(16) ++++ mg/dL [facility] Comment on above: 15 mg Leukocytes, UA Trace Negative - 500+++ Amanda/mcL [facility] Nitrite, UA Negative Negative - Positive [facility] pH, UA 6.5 5 - 9 [facility] Protein, UA Positive Negative - 2000(20) ++++ mg/dL [facility] Comment on above: 30 mg Spec Grav, UA 1.025 1 - 1.03 [facility] Urobilinogen, UA 0.2 0.2 - 12 mg/dL [facility] Covid-19 PCR ([facility])on 02-20 SARS-CoV-2 (COVID-19) RNA HERIBERTO+probe Ql (Unsp spec) Not detected Normal NOT DETECTED [facility] Comment on above: Result Comment: [...] for this test is supported by the [place] of Health and Human Service's declaration that [...] used). Performed By: #### C VDTBH #### [facility] [address] [place] [address] Dr. Rian Vega INFLUENZA A AND B AGon 03[facility] BELOW Normal [facility] Comment on above: Result Comment: Nega tive for Flu A protein angiten. Infection due to Flu A cannot be ruled out. Flu A angiten in the sample may be below the detection limit of the test. Performed By: #### I NFLUAB #### [facility] [address] [place] [address] Dr. Rian Vega INFLUBNEG SEE BELOW Normal [facility] Comment on above: Result Comment: Nega tive for Flu B protein antigen. Infection due to Flu B cannot be ruled out. Flu B antigen in the sample may be below the detection limit of the test. Performed By: #### I NFLUAB #### [facility] [address] [address] [address] Rian Vega INFLUENZA A AG Negative Normal NEGATIVE SEE COMMENT [facility] Comment on above: Performed By: #### I NFLUAB #### [facility] [address] [address] [address] Rian Vega INFLUENZA B AG Negative Normal NEGATIVE SEE COMMENT [facility] Comment on above: Performed By: #### I NFLUAB #### [facility] [address] [address] [address] Rian Vega INTERNAL CONTROLS Within Normal Limits Normal Within Normal Limits [facility] Comment on above: Performed By: #### I NFLUAB #### [facility] [address] [place] [address] Dr. Rian Vega URon 03-06-2022 , QUAL Negative Normal NEGATIVE [facility] Comment on above: Performed By: #### P REGU #### [facility] [address] [place] [address] Dr. Rian Vega Vital Signs Date Time Vital Sign Value Performing Clinician Migueli lity 08-27-2023 08:58-0500 Body mass index (BMI) [Ratio] 50.02 kg/m2 Latanya GARCIA Work Phone: [facility] 08-27-2023 08:58-0500 Body weight 149.23 kg Latanya GARCIA Work Phone: [facility] 08-27-2023 08:58-0500 Diastolic blood pressure 74 mm[Hg] Latanya GARCIA Work Phone: [facility] 08-27-2023 08:58-0500 Systolic blood pressure 122 mm[Hg] Latanya GARCIA Work Phone: [facility] Healthcare Encounters Encounter Date Encounter Type [...] Not Available Start: 09-03-2022 End: 09-03-2022 ambulatory [facility] Facility:H1 Start: 03-06-2022 End: 03-06-2022 [facility] Facility:H1 Procedures Date Procedure Procedure Detail Performing Clinician Start: 08-27-2023 Urnls dip stick/tabl et rgnt non-auto w/o micrscp Latanya GARCIA Work Phone: Plan of Treatment Date Care Activity Detail Author Start: 09-10-2023 End: 09-10-2023 Patient encounter procedure 09/10/2023 10:10 AM EST Routine [facility] [address] [place] [id number] Wenceslao Majaon, DO [address] [facility] [place] [address] [place] [address] [facility] Payers Date Payer Category Payer Unknown BCBS BCBS xxxxxx [id number] 2022-Present [phone] [address] [place] [address] [id number] 2022 Unknown [id number] 2022 Medicaid ANTHEM BCBS [facility] ANTHEM BCBS MEDICAID [place] [id number] 2022-Present [address] [place] [address] [id number] 2022 Unknown [id number] 1993 Unknown [id number] 1993 Unknown [id number] [id number] 1993 Unknown [id number] [id number] 1993 Unknown [id number] [id number] 1993 Unknown [id number] [id number] 1993 Unknown [id number] [id number] 1993 Unknown [id number] [id number] 1993 Unknown [id number] 1959 Unknown [id number] Self-pay Self Pay [id number] Unknown Self Pay [id number] Social History Date Type Detail Facility Tobacco smoking stat [facility] Unknown if ever smoked [facility] Start: 1995 Sex Assigned At Female F [facility] Start: 05-09-2023 [facility] [...] Problems Past Medical History: Diagnosis Date Asthma ([facility]) Bipolar disorder ([facility]) Current every day smoker Genital herpes History of marijuana use HSV-2 (herpes simplex virus 2) infection Miscarriage 03/2019 Morbid obesity with BMI of 50.0-59.9, adult ([facility]) PCOS (polycystic ovarian syndrome) Vaginal [...] Procedure Laterality Date SECTION, CLASSIC 09/14/2012 elective [place] TONSILLECTOMY & ADENOIDECTOMY AGE 10/> 11/27/2012 No [...] of: JOSE Rincon documented in this encounter [facility] Clinical Note 03-06-2022 Note Date & [...] by: YOHANA UGALDE Date: 2022-03-06 01:53 [facility] Evaluation note Note Date & Type Note Facility Evaluation note No assessment information availa [facility] Evaluation note Note Date & Type [...] DATE CREATED AUTHOR 09/28/2022 [facility] DATE CREATED AUTHOR AUTHOR'S ORGANIZ ATION 09/10/2023 [facility] dical Specialists EPIC Reason for [...] THE PRIMARY CLINICAL RECORDS. [facility] [facility]. provides no warranty or guarantee of the accuracy or completeness of information in this document.
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
--- OUTSIDE RECORDS SUMMARY | 2023-09-30 10:19 | XMS_ITS | CCD ---
Author Name Unknown Address [address] [place] [address] Organization [facility] Care Team Providers Care Escrow Officer Name Role Phone [facility] [place] Care Unavailable HERIBERTO ., MAREK Admitting Unavailable MAREK FLOOD Attending Unavailable MAREK FLOOD Consulting Unavailable [facility] Primary Care Unavailable EB GRANT Admitting Unavailable EB GRANT Attending Unavailable EB GRANT Consulting Unavailable YOHANA UGALDE Unavailable Unavailable Primary Care Provider UnavailLATANYA Day Attending Unavailable LATANYA CHOU Attending Unavailable WENCESLAO MAJANO Attending Unavailable LATANYA CHOU Attending Unavailable WENCESLAO MAJANO Attending Unavailable WENCESLAO MAJANO Attending Unavailable Medications Current Medications Medication Drug Class(es) Dates Sig (Normalized) Sig (Original) [id number] 200 actuat albuterol 0.09 mg/actuat metered dose [...] skilled nursing (current) drug therapy; Translations: [OTH 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 TEACHER 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 DRUG THERAPY] Onset: 09-05-2022 Episodic Other aftercare (1 source) 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; Translations: [HISTORY TEACHER USE ORAL HYPOGLYCEMIC DX] Onset: 09-05-2022 Episodic [...] UA Negative Negative - 4(70) +++ mg/dL [facility] Blood, UA Negative Negative - 50 Aureliano/mcL [facility] Clarity, UA Clear [facility] Color, UA Yellow [facility] Glucose, UA Negative Negative - 2000(110) ++++ mg/dL [facility] Interpretation and review of laboratory results Abnormal [facility] Healthcare Ketones, UA Positive Negative - 160(16) ++++ mg/dL [facility] Comment on above: 15 mg Leukocytes, UA Trace Negative - 500+++ Amanda/mcL [facility] Nitrite, UA Negative Negative - Positive [facility] pH, UA 6.5 5 - 9 [facility] Healthcar e Protein, UA Positive Negative - 2000(20) ++++ mg/dL [facility] Comment on above: 30 mg Spec Grav, UA 1.025 1 - 1.03 [facility] Urobilinogen, UA 0.2 0.2 - 12 mg/dL [facility] Health[facility] e Covid-19 PCR ([facility])on 02-20 SARS-CoV-2 (COVID-19) RNA HERIBERTO+probe Ql [...] for this test is supported by the Software [employer] of Health and Human Service's declaration that [...] C VDTBH #### [facility] [address] [place] [address] Dr. Rian Vega INFLUENZA A AND B AGon 03-[address] [facility] SEE BELOW Normal [facility] Comment on above: Result Comment: Nega tive for Flu A protein angiten. Infection due to Flu A cannot be ruled out. Flu A angiten in the sample may be below the detection limit of the test. Performed By: #### I NFLUAB #### [facility] [address] [place] [address] Dr. Rian Vega INFLUBNEG SEE BELOW Normal [facility] Comment on above: Result Comment: Nega tive for Flu B protein antigen. Infection due to Flu B cannot be ruled out. Flu B antigen in the sample may be below the detection limit of the test. Performed By: #### I NFLUAB #### [facility] [address] [address] [address] Rian Vega INFLUENZA A AG Negative Normal NEGATIVE SEE COMMENT [facility] Comment on above: Performed By: #### I NFLUAB #### [facility] [address] [address] [address] Rian Vega INFLUENZA B AG Negative Normal NEGATIVE SEE COMMENT [facility] Comment on above: Performed By: #### I NFLUAB #### [facility] [address] [address] [address] Rian Vega INTERNAL CONTROLS Within Normal Limits Normal Within Normal Limits [facility] Comment on above: Performed By: #### I NFLUAB #### [facility] [address] [place] [address] Dr. Rian Vega URon 03-06-2022 , QUAL Negative Normal NEGATIVE [facility] Comment on above: Performed By: #### P REGU #### [facility] [address] [place] [address] Dr. Rian Vega Vital Signs Date Time Vital Sign Value Performing Clinician Migueli lity 08-27-2023 08:58-0500 Body mass index (BMI) [Ratio] 50.02 kg/m2 Latanya GARCIA Work Phone: [facility] 08-27-2023 08:58-0500 Body weight 149.23 kg Latanya GARCIA Work Phone: [facility] 08-27-2023 08:58-0500 Diastolic blood pressure 74 mm[Hg] Latanya GARCIA Work Phone: [facility] 08-27-2023 08:58-0500 Systolic blood pressure 122 mm[Hg] Latanya GARCIA Work Phone: [facility] Healthcare Encounters Encounter Date Encounter Type Care [...] Not Available Start: 09-03-2022 End: 09-03-2022 ambulatory [facility] Facility:H1 Start: 03-06-2022 End: 03-06-2022 [facility] Facility:H1 Procedures Date Procedure Procedure Detail Performing Clinician Start: 08-27-2023 Urnls dip stick/tabl et rgnt non-auto w/o micrscp Latanya GARCIA Work Phone: Plan of Treatment Date Care Activity Detail Author Start: 09-10-2023 End: 09-10-2023 Patient encounter procedure 09/10/2023 10:10 AM EST Routine [facility] [address] [place] [id number] Wenceslao Majano, DO [address] [place] [address] [facility] Payers Date Payer Category Payer Unknown BCBS BCBS xxxxxx [id number] 2022-Present [phone] [address] [place] [address] [id number] 2022 Unknown [id number] 2022 Medicaid ANTHEM BCBS [facility] ANTHEM BCBS MEDICAID [place] [id number] 2022-Present [address] [place] [address] [id number] 2022 Unknown [id number] 1c097 1993 Unknown [id number] 1993 Unknown [id number] [id number] 1993 Unknown [id number] 1993 Unknown [id number] [id number] 1993 Unknown [id number] [id number] 1993 Unknown [id number] [id number] 1993 Unknown [id number] [id number] 1993 Unknown [id number] [id number] 1959 Unknown [id number] Self-pay Self Pay [id number] Unknown Self Pay [id number] Social History Date Type Detail Facility Tobacco smoking stat [facility] Unknown if ever smoked [facility] Start: 1995 Sex Assigned At Female F [facility] Start: 05-09-2023 [facility] History [...] Problems Past Medical History: Diagnosis Date Asthma ([facility]) Bipolar disorder ([facility]) Current every day smoker Genital herpes History of marijuana use HSV-2 (herpes simplex virus 2) infection Miscarriage 03/2019 Morbid obesity with BMI of 50.0-59.9, adult ([facility]) PCOS (polycystic ovarian syndrome) Vaginal burning [...] Procedure Laterality Date SECTION, CLASSIC 09/14/2012 elective [place] TONSILLECTOMY & ADENOIDECTOMY AGE 10/> 11/27/2012 No [...] of: JOSE Rincon documented in this encounter [facility] Clinical Note 03-06-2022 Note [...] Facility Evaluation note No assessment information availa [facility] Evaluation note Note Date & Type [...] and content) DATE CREATED AUTHOR 09/28/2022 [facility] DATE CREATED AUTHOR AUTHOR'S ORGANIZ ATION 09/10/2023 [facility] dical Specialists EPIC Reason for Visit (unrecogniz [...] BE BASED ON THE PRIMARY CLINICAL RECORDS. [facility]. provides no warranty or guarantee of the accuracy or completeness of information in this document.
[2023-09-30 10:23] VITALS: BP 136/65; PULSE 71
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
== END 2023-09-30 13:31 | disposition home or self-care (01) ==
LOC: ER 09:37 → FBC 10:17
PROVIDERS: Admitting Provider Obstetrics & Gynecology; Emergency Provider Emergency Medicine; Visit Provider Obstetrics & Gynecology
DX: Z04.1 Encounter for examination and observation following transport accident (principal); O26.893 Other specified pregnancy related conditions, third trimester; R51.9 Headache, unspecified; O99.333 Smoking (tobacco) complicating pregnancy, third trimester; F17.210 Nicotine dependence, cigarettes, uncomplicated; Z3A.38 38 weeks gestation of pregnancy
CPT/HCPCS: 76818; 99285; G0378

== ENCOUNTER 2023-10-03 07:30 | Outpatient (OUT) | payer BC, MEDICAID, SELFPAY ==
--- OUTSIDE RECORDS SUMMARY | 2023-10-03 08:06 | XMS_ITS | CCD ---
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 Primary Care Unavailable HERIBERTO ., MAREK Admitting Unavailable MAREK FLOOD Attending Unavailable MAREK FLOOD Consulting Unavailable [facility] Primary Care Unavailable EB GRANT Admitting Unavailable EB GRANT Attending Unavailable EB GRANT Consulting Unavailable YOHANA UGALDE Unavailable Unavailable Primary Care Provider UnavailLATANYA Day Attending Unavailable LATANYA CHOU Attending Unavailable WENCESLAO MAJANO Attending Unavailable LATANYA CHOU Attending Unavailable WENCESLAO MAJANO Attending Unavailable WENCESLAO MAJANO Attending Unavailable Medications Current Medications Medication Drug Class(es) Dates Sig (Normalized) Sig (Original) [id number] 200 actuat albuterol 0.09 mg/actuat metered dose [...] Other fdc (current) drug therapy; Translations: [OTH PILLING MACHINE OPERATOR CURRENT DRUG THERAPY] Onset: 09-05-2022 Episodic Other aftercare (1 source) 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 drugs; Translations: [PILLING MACHINE OPERATOR USE ORAL HYPOGLYCEMIC DX] Onset: 09-05-2022 Episodic [...] UA Negative Negative - 4(70) +++ mg/dL [facility] Blood, UA Negative Negative - 50 Aureliano/mcL [facility] Clarity, UA Clear [facility] Color, UA Yellow [facility] Glucose, UA Negative Negative - 2000(110) ++++ mg/dL [facility] Interpretation and review of laboratory results Abnormal [facility] Healthcare Ketones, UA Positive Negative - 160(16) ++++ mg/dL [facility] Comment on above: 15 mg Leukocytes, UA Trace Negative - 500+++ Amanda/mcL [facility] Nitrite, UA Negative Negative - Positive [facility] pH, UA 6.5 5 - 9 [facility] Protein, UA Positive Negative - 2000(20) ++++ mg/dL [facility] Comment on above: 30 mg Spec Grav, UA 1.025 1 - 1.03 [facility] Urobilinogen, UA 0.2 0.2 - 12 mg/dL [facility] Cov[facility] ([facility])on 02-20 SARS-CoV-2 (COVID-19) RNA HERIBERTO+probe Ql (Unsp spec) Not detected Normal NOT DETECTED [facility] Comment on above: Result Comment: When [...] for this test is supported by the Resin Filterer of Health and Human Service's declaration that [...] used). Performed By: #### C VDTBH #### [facility] [address] [place] [address] Dr. Rian Vega INFLUENZA A AND B AGon 03-06 INFLUBANNER SEE BELOW Normal [facility] Comment on above: Result Comment: Nega tive for Flu A protein angiten. Infection due to Flu A cannot be ruled out. Flu A angiten in the sample may be below the detection limit of the test. Performed By: #### I NFLUAB #### [facility] [address] [place] [address] Dr. Rian Vega INFLUBNEG SEE BELOW Normal [facility] Comment on above: Result Comment: Nega tive for Flu B protein antigen. Infection due to Flu B cannot be ruled out. Flu B antigen in the sample may be below the detection limit of the test. Performed By: #### I NFLUAB #### [facility] [address] [address] [address] Rian Vega INFLUENZA A AG Negative Normal NEGATIVE SEE COMMENT [facility] Comment on above: Performed By: #### I NFLUAB #### [facility] [address] [address] [address] Rian Vega INFLUENZA B AG Negative Normal NEGATIVE SEE COMMENT [facility] Comment on above: Performed By: #### I NFLUAB #### [facility] [address] [address] [address] Rian Vega INTERNAL CONTROLS Within Normal Limits Normal Within Normal Limits [facility] Comment on above: Performed By: #### I NFLUAB #### [facility] [address] [place] [address] Dr. Rian Vega URon 03-06-2022 , QUAL Negative Normal NEGATIVE [facility] Comment on above: Performed By: #### P REGU #### [facility] [address] [place] [address] Dr. Rian Vega Vital Signs Date Time Vital Sign Value Performing Clinician Migueli lity 08-27-2023 08:58-0500 Body mass index (BMI) [Ratio] 50.02 kg/m2 Latanya GARCIA Work Phone: [facility] 08-27-2023 08:58-0500 Body weight 149.23 kg Latanya GARCIA Work Phone: [facility] 08-27-2023 08:58-0500 Diastolic blood pressure 74 mm[Hg] Latanya GARCIA Work Phone: [facility] 08-27-2023 08:58-0500 Systolic blood pressure 122 mm[Hg] Latanya GARCIA Work Phone: [facility] Healthcare Encounters Encounter Date Encounter [...] Not Available Start: 09-03-2022 End: 09-03-2022 ambulatory [facility] Facility:H1 Start: 03-06-2022 End: 03-06-2022 [facility] Facility:H1 Procedures Date Procedure Procedure Detail Performing Clinician Start: 08-27-2023 Urnls dip stick/tabl et rgnt non-auto w/o micrscp Latanya GARCIA Work Phone: Plan of Treatment Date Care Activity Detail Author Start: 09-10-2023 End: 09-10-2023 Patient encounter procedure 09/10/2023 10:10 AM EST Routine [facility] [address] [place] [id number] Wenceslao Majano, DO [address] [place] [address] [facility] Payers Date Payer Category Payer Unknown BCBS BCBS xxxxxx [id number] 2022-Present [phone] [address] [place] [address] [id number] 2022 Unknown [id number] 2022 Medicaid ANTHEM BCBS [facility] ANTHEM BCBS MEDICAID [place] [id number] 2022-Present [address] [place] [address] [id number] 2022 Unknown [id number] 1993 Unknown [id number] 1993 Unknown [id number] [id number] 1993 Unknown [id number] [id number] 1993 Unknown [id number] [id number] 1993 Unknown [id number] [id number] 1993 Unknown [id number] 2.16.840.1.851315.3.579.2.1259 1993 Unknown [id number] 2.16.840.1.459170.3.579.2.1259 1993 Unknown [id number] [id number] 1959 Unknown [id number] Self-pay Self Pay [id number] Unknown Self Pay [id number] Social History Date Type Detail Facility Tobacco smoking stat [facility] Unknown if ever smoked [facility] Start: 1995 Sex Assigned At Female F [facility] Start: 05-09-2023 [facility] [...] Problems Past Medical History: Diagnosis Date Asthma ([facility]) Bipolar disorder ([facility]) Current every day smoker Genital herpes History of marijuana use HSV-2 (herpes simplex virus 2) infection Miscarriage 03/2019 Morbid obesity with BMI of 50.0-59.9, adult ([facility]) PCOS (polycystic ovarian syndrome) [...] Procedure Laterality Date SECTION, CLASSIC 09/14/2012 elective DC TONSILLECTOMY & ADENOIDECTOMY AGE 10/> 11/27/2012 No [...] of: JOSE Rincon documented in this encounter [facility] Clinical Note 03-06-2022 Note [...] by: YOHANA UGALDE Date: 2022-03-06 01:53 [facility] Evaluation note Note Date & Type Note Facility Evaluation note No assessment information availa [facility] Evaluation note Note Date & Type [...] CREATED AUTHOR 09/28/[address] [facility] DATE CREATED AUTHOR AUTHOR'S ORGANIZ ATION 09/10/2023 [facility] d[facility] Specialists EPIC Reason for Visit [...] THE PRIMARY CLINICAL RECORDS. [facility] [employer] [facility]. provides no warranty or guarantee of the accuracy or completeness of information in this document.
--- NOTE | 2023-10-03 08:57 | US_ITS ---
[address] [address] Patient Name: THERESA SU MRN: [facility]:[id number] date: 1995 Sex: F Assigned Patient Location: [place] Current Patient Location: [facility] Accession/Order Number: [id number] Exam Date: 10/03/2023 09:00 Report Date: 10/03/2023 09:36 At the request of: WENCESLAO FRASER Procedure: US OB BPP w non-stress EXAMINATION: US OB BPP w non-stress HISTORY: EXCESSIVE GROWTH O36.63X0 COMPARISON: Ultrasound OB biophysical 09/30/2023 TECHNIQUE: Ultrasound biophysical profile was performed in the radiology department. BREATHING MOVEMENTS: 2.0 GROSS BODY MOVEMENTS: 2.0 TONE: 2.0 QUALITATIVE AMNIOTIC FLUID VOLUME: 2.0 PRESENTATION: CEPHALIC HEART RATE: 143.6 bpm bpm. AMNIOTIC FLUID VOLUME: 17.1 cm GESTATIONAL AGE: 38 weeks 5 days CONCLUSION: Total biophysical profile score 8.0. Electronically authenticated by: YOANA MELGOZA Date: 10/03/2023 09:36
[2023-10-03 09:15] VITALS: BP 119/56; PULSE 81
== END 2023-10-03 09:41 | disposition home or self-care (01) ==
LOC: US 08:03 → FBC 08:59
PROVIDERS: Visit Provider Obstetrics & Gynecology
DX: O36.63X0 Maternal care for excessive fetal growth, third trimester, not applicable or unspecified (principal); Z3A.38 38 weeks gestation of pregnancy
CPT/HCPCS: 76818

== ENCOUNTER 2023-10-04 05:48 | Inpatient (IN) | payer BC, MEDICAID, SELFPAY ==
[2023-10-04] VITALS (26 sets, daily range): BP systolic 88–134; BP diastolic 46–69; PULSE 67–83; RESP 10–22; TEMP 36.1–36.8; O2SAT 96–100
--- OUTSIDE RECORDS SUMMARY | 2023-10-04 05:50 | XMS_ITS | CCD ---
Author Name Unknown Address [address] [place] [address] Organization [employer] Care Team Providers Care Coldfusion Name Role Phone [facility] Primary Care Unavailable HERIBERTO ., MAREK Admitting Unavailable HERIBERTO .MAREK Attending Unavailable HERIBERTO ., MAREK Consulting Unavailable [facility] Primary Care Unavailable EB GRANT Admitting Unavailable EB GRANT Attending Unavailable EB GRANT Consulting Unavailable YOHANA UGALDE Unavailable Unavailable Primary Care Provider UnavailLATANYA Day Attending Unavailable LATANYA CHOU Attending Unavailable WENCESLAO MAJANO Attending Unavailable LATANYA CHOU Attending Unavailable WENCESLAO MAJANO Attending Unavailable EVELIO, WENCESLAO Attending Unavailable WENCESLAO MAJANO Attending Unavailable WENCESLAO MAJANO Attending Unavailable WENCESLAO MAJANO Attending Unavailable Medications Current Medications Medication Drug Class(es) Dates Sig (Normalized) Sig (Original) [id number] 200 actuat albuterol 0.09 mg/actuat metered dose [...] 03-07-2022 Chronic Other aftercare (1 source) 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; Translations: [OTH SKILLED NURSING CURRENT DRUG THERAPY] Onset: 09-05-2022 Episodic Other aftercare (1 source) residential (current) use of oral hypoglycemic drugs; Translations: [SKILLED NURSING USE ORAL HYPOGLYCEMIC DX] Onset: 09-05-2022 Episodic [...] UA Negative Negative - 4(70) +++ mg/dL [facility] Blood, UA Negative Negative - 50 Aureliano/mcL [facility] Clarity, UA Clear [facility] Color, UA Yellow [facility] Glucose, UA Negative Negative - 2000(110) ++++ mg/dL [facility] Interpretation and review of laboratory results Abnormal [facility] Ketones, UA Positive Negative - 160(16) ++++ mg/dL [facility] Comment on above: 15 mg Leukocytes, UA Trace Negative - 500+++ Amanda/mcL [facility] Nitrite, UA Negative Negative - Positive [facility] pH, UA 6.5 5 - 9 [facility] Protein, UA Positive Negative - 2000(20) ++++ mg/dL [facility] Comment on above: 30 mg Spec Grav, UA 1.025 1 - 1.03 [facility] Urobilinogen, UA 0.2 0.2 - 12 mg/dL [facility])on 02-20 SARS-CoV-2 (COVID-19) RNA HERIBERTO+probe Ql (Unsp spec) Not detected Normal NOT DETECTED [facility] Comment on above: Result Comment: When [...] for this test is supported by the Human Intelligence of Health and Human Service's declaration that [...] By: #### C VDTBH #### [facility] [address] [place] [address] Dr. Rian Vega INFLUENZA A AND B AGon 03-06 INFLUANEGH SEE BELOW Normal [facility] Comment on above: Result Comment: Nega tive for Flu A protein angiten. Infection due to Flu A cannot be ruled out. Flu A angiten in the sample may be below the detection limit of the test. Performed By: #### I NFLUAB #### [facility] [address] [place] [address] Dr. Rian Vega INFLUBNEGH SEE BELOW Normal [facility] Comment on above: Result Comment: Nega tive for Flu B protein antigen. Infection due to Flu B cannot be ruled out. Flu B antigen in the sample may be below the detection limit of the test. Performed By: #### I NFLUAB #### [facility] [address] [address] [address] Rian Vega INFLUENZA A AG Negative Normal NEGATIVE SEE COMMENT [facility] Comment on above: Performed By: #### I NFLUAB #### [facility] [address] [address] [address] Rian Vega INFLUENZA B AG Negative Normal NEGATIVE SEE COMMENT [facility] Comment on above: Performed By: #### I NFLUAB #### [facility] [address] [place] [address] Dr. Rian Vega INTERNAL CONTROLS Within Normal Limits Normal Within Normal Limits [facility] Comment on above: Performed By: #### I NFLUAB #### [facility] [address] [address] [address] Rian Vega URon 03-06-2022 , QUAL Negative Normal NEGATIVE [facility] Comment on above: Performed By: #### P REGU #### [facility] [address] [place] [address] Dr. Rian Vega Vital Signs Date Time Vital Sign Value Performing Clinician Faci lity 08-27-2023 08:58-0500 Body mass index (BMI) [Ratio] 50.02 kg/m2 Latanya GARCIA Work Phone: [facility] 08-27-2023 08:58-0500 Body weight 149.23 kg Latanya GARCIA Work Phone: [facility] 08-27-2023 08:58-0500 Diastolic blood pressure 74 mm[Hg] Latanya GARCIA Work Phone: [facility] 08-27-2023 08:58-0500 Systolic blood pressure 122 mm[Hg] Latanya GARCIA Work Phone: [facility] Healthcare Encounters Encounter Date Encounter Type Care Provider Facility Start: 10-02-2023 End: 10-02-2023 ambulatory WENCESLAO EVELIO Not Available Start: 09-25-2023 End: 09-25-2023 ambulatory WENCESLAO EVELIO Not Available Start: 09-18-2023 End: 09-18-2023 ambulatory WENCESLAO EVELIO Not Available Start: 09-10-2023 End: 09-10-2023 ambulatory WENCESLAO EVELIO Not Available Start: 08-27-2023 End: 08-27-2023 ambulatory LATANYA JOSÉ ANTONIO Not Available Start: 08-27-2023 End: 08-27-2023 flow sheet Latanya GARCIA Work Phone: [facility] Comment on above: Third trimester preg catracho Start: 08-14-2023 End: 08-14-2023 ambulatory WENCESLAO EVELIO Not Available Start: 07-30-2023 End: 07-30-2023 ambulatory LATANYA JOSÉ ANTONIO Not Available Start: 07-12-2023 End: 07-12-2023 ambulatory WENCESLAO EVELIO Not Available Start: 06-06-2023 End: 06-06-2023 ambulatory LATANYA JOSÉ ANTONIO Not Available Start: 09-03-2022 End: 09-03-2022 ambulatory [facility] Facility:H1 Start: 03-06-2022 End: 03-06-2022 [facility] Facility:H1 Procedures Date Procedure Procedure Detail Performing Clinician Start: 08-27-2023 Urnls dip stick/tabl et rgnt non-auto w/o micrscp Latanya GARCIA Work Phone: Plan of Treatment Date Care Activity Detail Author Start: 09-10-2023 End: 09-10-2023 Patient encounter procedure 09/10/2023 10:10 AM EST Routine [facility] [address] [place] [address] Wenceslao Majano, DO [address] [place] [address] [facility] Payers Date Payer Category Payer Unknown BCBS BCBS xxxxxx [id number] 2022-Present [phone] [address] [place] [address] [id number] 2022 Unknown [id number] 2022 Medicaid ANTHEM BCBS [facility] ANTHEM BCBS MEDICAID [place] [id number] 2022-Present [address] [place] [address] [id number] 2022 Unknown [id number] 1995 Unknown [id number] [id number] 1993 Unknown [id number] 2.16.840.1.305036.3.579.2.593 1993 Unknown [id number] 2.16.840.1.854012.3.579.2.1259 1993 Unknown [id number] 2.16.840.1.036498.3.579.2.1259 1993 Unknown [id number] 2.16.840.1.065994.3.579.2.1259 1993 Unknown [id number] 2.16.840.1.700375.3.579.2.1259 1993 Unknown [id number] 2.16.840.1.590970.3.579.2.1259 1993 Unknown [id number] 2.16.840.1.696933.3.579.2.1259 1993 Unknown [id number] 2.16.840.1.720477.3.579.2.1259 1993 Unknown [id number] [id number] 1993 Unknown [id number] 1959 Unknown [id number] Self-pay Self Pay [id number] Unknown Self Pay [id number] Social History Date Type Detail Facility Tobacco smoking stat [facility] Unknown if ever smoked [facility] Start: 1995 Sex Assigned At Female F [facility] Start: 05-09-2023 Tobacco smoking stat [facility] Smokes tobacco daily [facility] History of [...] Problems Past Medical History: Diagnosis Date Asthma (CMS/HCC) Bipolar disorder ([facility]) Current every day smoker Genital herpes History of marijuana use HSV-2 (herpes simplex virus 2) infection Miscarriage 03/2019 Morbid obesity with BMI of 50.0-59.9, adult ([facility]) PCOS (polycystic ovarian syndrome) Vaginal burning [...] of: JOSE Rincon documented in this encounter [facility] Clinical Note 03-06-2022 Note Date & [...] UGALDE Date: 2022-03-06 01:53 [facility] Evaluation note Note Date & Type Note Facility Evaluation note No assessment information availa [facility] Evaluation note Note Date & Type Note Facility Evaluation note Diagnosis Third trimester state, incidental documented in this encounter [facility] Summary Purpose Family History No Family History Records FoundNo Family History Records Found Advance Directives No Advanced Directives Records FoundNo Advanced Directives Records Found Additional Source Comments Goals (unrecognized section and content) Goals may be documented in a n alternate section INFORMATION SOURCE (unrecogn ized section and content) DATE CREATED AUTHOR 09/28/2022 [facility] DATE CREATED AUTHOR AUTHOR'S ORGANIZ ATION 10/03/2023 [facility] d[facility] Specialists EPIC Reason for Visit (unrecogniz [...] BE BASED ON THE PRIMARY CLINICAL RECORDS. [facility] [employer] [facility]. provides no warranty or guarantee of the accuracy or completeness of information in this document.
[2023-10-04 06:38] LABS: Basophils Percent Auto 0.1 % (0.2-2.0); Eosinophils Absolute Auto 0.2 10^3/uL (0.0-0.7); Eosinophils Percent Auto 1.9 % (0.9-7.0); Hematocrit 33.4 % (36.0-48.0); Hemoglobin 11.2 g/dL (12.0-16.0); Immature Granulocytes Abs Auto 0.05 10^3/uL (0.00-0.03); Immature Granulocytes Pct Auto 0.5 % (0.0-0.5); Lymphocytes Absolute Auto 1.3 10^3/uL (1.2-3.8); Lymphocytes Percent Auto 13.3 % (20.5-60.0); Mean Corpuscular HGB Conc 33.5 g/dL (29.9-35.2); Mean Corpuscular Hemoglobin 33.1 pg (26.7-34.0); Mean Corpuscular Volume 98.8 fL (81.0-99.0); Mean Platelet Volume 11.3 fL (9.5-13.5); Monocytes Absolute Auto 0.8 10^3/uL (0.3-0.8); Neutrophils Absolute Auto 7.3 10^3/uL (1.4-6.5); Neutrophils Percent Auto 76.2 % (43.0-75.0); Platelet Count 163 10^3/uL (150-450); Red Blood Count 3.38 10^6/uL (4.20-5.40); White Blood Count 9.6 10^3/uL (4.0-11.0)
[2023-10-04 06:50] LABS: Amphetamine Screen Urine NEGATIVE (NEGATIVE); Barbiturates Screen Urine NEGATIVE (NEGATIVE); Benzodiazepines Screen Urine NEGATIVE (NEGATIVE); Buprenorphine Screen Urine NEGATIVE (NEGATIVE); Cannabinoid Screen Urine NEGATIVE (NEGATIVE); Cocaine Screen Urine NEGATIVE (NEGATIVE); Methadone Screen Urine NEGATIVE (NEGATIVE); Methamphetamines Screen Urine NEGATIVE (NEGATIVE); Opiate Screen Urine NEGATIVE (NEGATIVE); Oxycodone Screen Urine NEGATIVE (NEGATIVE); Phencyclidine Screen Urine NEGATIVE (NEGATIVE); Tricyclic Antidepressant Urine NEGATIVE (NEGATIVE)
[2023-10-04] MEDS: FAMOTIDINE/PF 20 MG/2 ML VIAL IV (07:04)
[2023-10-04] MEDS: METOCLOPRAMIDE HCL 10 MG/2 ML VIAL IVP (07:04)
[2023-10-04] MEDS: CITRIC ACID/SODIUM CITRATE 30 ML SOLUTION ORACIT SHOHL'S SOLN PO (07:04)
[2023-10-04] MEDS: 0.9 % SODIUM CHLORIDE 1,000 ML 1000 ML IV ×2 (07:05→09:57)
[2023-10-04] MEDS: 0.9 % SODIUM CHLORIDE 1,000 ML 125 ML IV (07:11)
[2023-10-04] MEDS: CEFAZOLIN SODIUM/DEXTROSE,ISO 2 GM/50 ML PIGGYBACK IV ×2 (07:12→12:42)
--- NOTE | 2023-10-04 07:45 | PM.OBHP ---
OB - H&P: HPI History of Present Illness Chief complaint: LABOR : 3 Para: 1 Gestational age based on last menstrual period: 39wks Comments: previous c/s History of Present Dating criteria: LMP confirmed by 1st trimester US care: good care Ultrasounds: normal 1st trimester US Narrative: hsv Labs Blood type: B (+) positive Rubella: immune RPR/VDLR: nonreactive GBS status: negative HBsAG: negative Review of Systems ROS Status of ROS: 10 or more systems reviewed and unremarkable except as noted in history and below PFSH PFSH Social History Smoking status: Current every day smoker Highest level of school completed/degree received: high school graduate Meds Home Medications and Allergies Home Medications Medication Instructions Recorded Confirmed Type ondansetron HCl 4 mg tablet 4 mg PO Q6H PRN nausea and 03/09/23 09/19/23 Rx vomiting #12 tabs aspirin 81 mg tablet,delayed 81 mg PO DAILY 07/11/23 09/19/23 History release omeprazole 20 mg capsule,delayed 20 mg PO DAILY 07/11/23 09/19/23 History release vits,calcium 21-iron fum 1 tab PO DAILY 07/11/23 09/19/23 History 14 mg iron-folic acid 400 mcg tablet ( Complete) valacyclovir 500 mg tablet 500 mg PO DAILY 09/19/23 09/19/23 History (Valtrex) Allergies Allergy/AdvReac Type Severity Reaction Status Date / Time No Known Drug Allergies Allergy Verified 03/09/23 12:49 Exam Constitutional Vital Signs, click to edit/add: Last Vital Signs Temp 97.4 F L 10/04/23 06:04 Pulse 78 10/04/23 06:26 Resp 20 10/04/23 06:04 BP 128/69 10/04/23 06:26 Documenting provider has reviewed patient's vital signs: yes Common normals: no apparent distress Respiratory Common normals: normal respiratory effort and clear to auscultation bilaterally Cardio Common normals: regular rate and regular rhythm GI Common normals: Normal to inspection, nondistended, normoactive bowel sounds present Extremity Common normals: no calf tenderness Results Labs Labs: Short CBC 10/04/23 Range/Units 06:24 WBC 9.6 (4.0-11.0) 10^3/uL Hgb 11.2 L (12.0-16.0) g/dL Hct 33.4 L (36.0-48.0) % Plt Count 163 (150-450) 10^3/uL OB - A/P Assessment and Plan (1) Intrauterine : (2) Genital herpes affecting : Plan iup at 39wks, ho hsv, previous c/s-will perform c/s, mmc reviewed, consent obtained, procedure reviewed
[2023-10-04] MEDS: LACTATED RINGER'S SOLUTION 1,000 ML 50 ML IV (08:49)
--- NOTE | 2023-10-04 08:56 | P.ON_ITS ---
Brief Operative Note Date of procedure: 10/04/23 Pre-op diagnosis: iup at 39wks, hsv, previous c/s Post-op diagnosis: same as pre-op Procedure: NAME OF PROCEDURE: [ section ] PROCEDURE: Patient was taken back to the Operating Room where she was given a spinal anesthesia with Duramorph without difficulty. She was prepped and draped in the normal sterile fashion. A Pfannenstiel skin incision was then made 2 cm above the symphysis pubis and carried down to underlying rectus fascia using a Bovie. The fascia was incised in the midline and extended laterally using Ball scissors. Two Nick clamps were placed on the superior aspect of the fascia and dissected off the underlying rectus muscles. The same was performed on the inferior aspect as well. The muscles were then in the midline. Peritoneum was identified and entered bluntly. The peritoneum was then extended superiorly and inferiorly with good visualization of the bladder. The bladder blade was inserted. A low transverse incision was made on the patient's uterus and extended laterally digitally. The infant was then delivered atraumatically after the bladder blade was removed in the cephalic position. The cord was clamped and cut. Cord blood was obtained. The was handed off to awaiting team. The patient's placenta was spontaneously delivered. The uterus was then exteriorized. The uterus was cleared of all clots and debris. The jarret dder blade was reinserted. The patient's uterine incision was closed using #0 Vicryl in a running lock fashion. Excellent hemostasis was assured. The uterus was then returned to the patient's abdomen. The patient's abdomen was copiously irrigated using warm saline. Peritoneal gutters were cleared of all clots and debris. Again excellent hemostasis was assured. The patient's peritoneum was closed using 3-0 Vicryl in a running fashion. The patient's fascia was closed using #0 Vicryl in a running fashion. The patient's skin was closed using 4-0 Vicryl subcuticularly. The patient tolerated the procedure well. Sponge, lap, and needle counts were correct x2. The patient was taken to the Recovery Room in stable condition. Anesthesia: spinal Surgeon: Luis Majano Help Desk Assistant: Nicole Odom Estimated blood loss (mL): 600 Pathology: none sent Condition: stable Disposition: PACU Urinary Catheter Management Urinary Catheter Management Urethral: Cath placed during this visit: yes Urethral indwelling: No Insertion date: 10/04/23 Insertion time: 08:00
--- NOTE | 2023-10-04 08:57 | PM.OBPRCCS ---
Procedure Pre-op/Post-op diagnoses: Pre-Op/Post-Op Diagnoses Operation Date: 10/04/23 07:30 <No data on this case meets the specified criteria> Procedure: Procedures Operation Date: 10/04/23 07:30 Actual Procedure Side Surgeon p Repeat Not Applicable Luis Majano DO Special Education Administrator: Nicole Odom Estimated blood loss (mL): 600 Disposition: PACU Anesthesia type: Spinal
[2023-10-04] MEDS: OXYTOCIN/0.9 % SODIUM CHLORIDE 20 UNITS/1,000 ML PLAST..BAG 125 UNIT IV (10:00)
[2023-10-04] MEDS: KETOROLAC TROMETHAMINE 30 MG/ML VIAL IVP ×2 (11:23→18:26)
[2023-10-04] MEDS: OXYCODONE HCL/ACETAMINOPHEN 5MG/325MG 2 TAB PO (22:47)
[2023-10-05] VITALS (7 sets, daily range): BP systolic 105–124; BP diastolic 51–60; PULSE 64–68; RESP 17–18; TEMP 36.8–36.9; O2SAT 96
[2023-10-05] MEDS: ENOXAPARIN SODIUM 40 MG/0.4 ML SYRINGE SUBQ (00:25)
[2023-10-05] MEDS: KETOROLAC TROMETHAMINE 30 MG/ML VIAL IVP ×4 (00:25→21:08)
[2023-10-05] MEDS: OXYCODONE HCL/ACETAMINOPHEN 5MG/325MG 2 TAB PO ×3 (05:18→19:52)
[2023-10-05 06:05] LABS: Basophils Percent Auto 0.2 % (0.2-2.0); Eosinophils Absolute Auto 0.2 10^3/uL (0.0-0.7); Eosinophils Percent Auto 2.6 % (0.9-7.0); Hematocrit 29.1 % (36.0-48.0); Hemoglobin 9.5 g/dL (12.0-16.0); Immature Granulocytes Abs Auto 0.04 10^3/uL (0.00-0.03); Immature Granulocytes Pct Auto 0.4 % (0.0-0.5); Lymphocytes Percent Auto 21.8 % (20.5-60.0); Mean Corpuscular HGB Conc 32.6 g/dL (29.9-35.2); Mean Corpuscular Hemoglobin 32.8 pg (26.7-34.0); Mean Corpuscular Volume 100.3 fL (81.0-99.0); Mean Platelet Volume 11.6 fL (9.5-13.5); Monocytes Absolute Auto 0.9 10^3/uL (0.3-0.8); Monocytes Percent Auto 9.6 % (1.7-12.0); Neutrophils Percent Auto 65.4 % (43.0-75.0); Platelet Count 153 10^3/uL (150-450); Red Cell Distribution Width 13.1 % (11.0-15.0); White Blood Count 9.1 10^3/uL (4.0-11.0)
--- NOTE | 2023-10-05 08:55 | PC.NURSE ---
Ursula eating breakfast, states feeding going okay . Baby really gaggy yesterday and finally got it all out this morning Discussed frequent feeds, skin to skin and early pumping due to history of not producing milk the first child. Pumping as able due to infrequent good feeds since delivery. Plan to day to work on latching and offering the breast every 1-3 hours. If able to express any colostrum, to feed back to to protect weight loss. Ursula verbalized understanding. Given BF booklet with discussion.
[2023-10-05] MEDS: DOCUSATE SODIUM 100 MG CAPSULE PO ×2 (09:24→21:08)
--- NOTE | 2023-10-05 12:59 | P.OBPN_ITS ---
OB - PN: Subj Subjective Patient comments: no complaints and pain well controlled [place] status: doing well Exam Narrative Exam Narrative: VOICING NO COMPLAINTS Constitutional Vital Signs, click to edit/add: Last Vital Signs Temp 98.2 F 10/05/23 07:35 Pulse 64 10/05/23 07:37 Resp 18 10/05/23 07:35 BP 119/51 10/05/23 07:37 Pulse Ox 96 10/04/23 09:46 O2 Del Method Room Air 10/04/23 09:46 Documenting provider has reviewed patient's vital signs: yes Common normals: no apparent distress, oriented x3 and no limitations HENMT Common normals: normocephalic and head/scalp atraumatic Eye Pupil: PERRL and accommodation reflex normal Neck & C-Spine Common normals: full ROM and supple Respiratory Common normals: normal respiratory effort Cardio Common normals: regular rate and regular rhythm GI Common normals: Normal to inspection, nondistended, normoactive bowel sounds present and soft to palpation Common normals: no CVA tenderness Back & Pelvis Common normals: thoracic and lumbar spine normal to inspection and no thoracic nor lumbar tenderness Extremity Common normals: normal to inspection, full ROM and no calf tenderness Neuro Common normals: oriented x3, CN's II-XII intact bilaterally, moves all extremities, no focal motor deficits and no sensory deficits noted Psych Common normals: mental status grossly normal, thought process normal, cooperative, affect normal and speech normal Results Labs Labs: Short CBC 10/05/23 Range/Units 05:53 WBC 9.1 (4.0-11.0) 10^3/uL Hgb 9.5 L (12.0-16.0) g/dL Hct 29.1 L (36.0-48.0) % Plt Count 153 (150-450) 10^3/uL Urinary Catheter Management Urinary Catheter Management Urethral: Cath placed during this visit: yes Urethral indwelling: No Insertion date: 10/04/23 Insertion time: 08:00 OB - PN: A/P Assessment and Plan (1) Intrauterine : Assessment and Plan: DELIVERED (2) Genital herpes affecting : Assessment and Plan: HAD DELIVERY BY CS Qualifiers: Trimester: third trimester Qualified Code(s): O98.313 - Other infections with a predominantly sexual mode of transmission complicating , third trimester; A60.09 - Herpesviral infection of other urogenital tract Plan - Plan: routine postop care Time Spent with Patient Time: Total time spent is greater than 50% in coordination of care (as documented) at patient's floor/unit and/or counseling patient: Total time spent with greater than 50% in coordination of care (as documented) at patient's floor/unit and/or counseling patient: less than 15 minutes
[2023-10-06 00:14] VITALS: BP 116/53; PULSE 65
[2023-10-06 00:15] VITALS: RESP 16
[2023-10-06] MEDS: ENOXAPARIN SODIUM 40 MG/0.4 ML SYRINGE SUBQ (00:23)
[2023-10-06] MEDS: KETOROLAC TROMETHAMINE 30 MG/ML VIAL IVP (03:30)
[2023-10-06] MEDS: OXYCODONE HCL/ACETAMINOPHEN 5MG/325MG 2 TAB PO ×4 (03:30→21:05)
--- NOTE | 2023-10-06 05:09 | PC.NURSE ---
pt states pain to incision since being medicated is 3/10 and tolerable.
[2023-10-06 09:00] VITALS: BP 138/59; PULSE 74; RESP 18; TEMP 36.7
[2023-10-06 09:02] VITALS: BP 138/59; PULSE 74
[2023-10-06] MEDS: DOCUSATE SODIUM 100 MG CAPSULE PO ×2 (09:07→21:05)
--- NOTE | 2023-10-06 12:26 | PM.OBPN ---
OB - PN: Subj Subjective Patient comments: no complaints and pain well controlled [place] status: doing well and well [place] feeding status: exclusively Exam Narrative Exam Narrative: voicing no complaints Constitutional Vital Signs, click to edit/add: Last Vital Signs Temp 98.1 F 10/06/23 09:00 Pulse 74 10/06/23 09:02 Resp 18 10/06/23 09:00 BP 138/59 10/06/23 09:02 Pulse Ox 96 10/05/23 17:18 O2 Del Method Room Air 10/06/23 09:00 Documenting provider has reviewed patient's vital signs: yes Common normals: no apparent distress, alert and well nourished HENMT Common normals: normocephalic and head/scalp atraumatic Eye Pupil: PERRL and accommodation reflex normal Neck & C-Spine Common normals: full ROM and supple Respiratory Common normals: normal respiratory effort Cardio Common normals: regular rate and regular rhythm GI Common normals: Normal to inspection, nondistended, normoactive bowel sounds present, soft to palpation and non-tender Common normals: no CVA tenderness Back & Pelvis Common normals: thoracic and lumbar spine normal to inspection and no thoracic nor lumbar tenderness Extremity Common normals: normal to inspection, full ROM and no calf tenderness Neuro Common normals: oriented x3, CN's II-XII intact bilaterally, moves all extremities, no focal motor deficits and no sensory deficits noted Psych Common normals: mental status grossly normal, thought process normal, cooperative, affect normal and speech normal Urinary Catheter Management Urinary Catheter Management Urethral: Cath placed during this visit: yes Urethral indwelling: No Insertion date: 10/04/23 Insertion time: 08:00 OB - PN: A/P Assessment and Plan (1) Intrauterine : Assessment and Plan: delivered (2) Genital herpes affecting : Assessment and Plan: section done to avoid transmission of virus to baby Qualifiers: Trimester: third trimester Qualified Code(s): O98.313 - Other infections with a predominantly sexual mode of transmission complicating , third trimester; A60.09 - Herpesviral infection of other urogenital tract (3) hypertension: Assessment and Plan: started on nifedipine xl 30 mg po qd yesterday. increased dose to 60 mg po qd today. will see provider on sunday for blood pressure check and incision check Plan discharge home Plan - day: 2 Plan: discharge home Comment: should baby not pass car seat test, the patient will become a border Time Spent with Patient Time: Total time spent is greater than 50% in coordination of care (as documented) at patient's floor/unit and/or counseling patient: Total time spent with greater than 50% in coordination of care (as documented) at patient's floor/unit and/or counseling patient: less than 15 minutes
[2023-10-06] MEDS: IBUPROFEN 400 MG TABLET 800 MG PO ×2 (13:21→23:59)
[2023-10-06 17:10] VITALS: BP 130/58; PULSE 62; RESP 18; TEMP 36.8
[2023-10-06 23:55] VITALS: BP 119/56; PULSE 75
[2023-10-07] MEDS: ENOXAPARIN SODIUM 40 MG/0.4 ML SYRINGE SUBQ
[2023-10-07 00:10] VITALS: RESP 16
--- NOTE | 2023-10-07 00:22 | PC.NURSE ---
Report given to Brodie Odom RN
[2023-10-07] MEDS: OXYCODONE HCL/ACETAMINOPHEN 5MG/325MG 2 TAB PO (06:02)
[2023-10-07 09:06] VITALS: BP 143/67; PULSE 80
[2023-10-07] MEDS: DOCUSATE SODIUM 100 MG CAPSULE PO (09:09)
[2023-10-07] MEDS: IBUPROFEN 400 MG TABLET 800 MG PO (09:09)
[2023-10-07 09:15] VITALS: BP 143/67; PULSE 80; RESP 16; TEMP 36.8
[2023-10-07 12:20] VITALS: BP 119/58; PULSE 72
--- NOTE | 2023-10-07 14:30 | DS_ITS ---
DISCHARGE DATE: ??10/07/2023 ? PRIMARY DIAGNOSES: 1.? Intrauterine . 2.? History of HSV. 3.? Previous . ? PROCEDURE:? section. ? HOSPITAL COURSE:? As expected.? Please see chart for full details.? ? LABORATORY DATA:? Please see chart. ? COMPLICATIONS:? None. ? DISCHARGE CONDITION:? Stable. ? CONSULTATION:? Anesthesia. ? DISCHARGE INSTRUCTIONS: 1.? Diet:? Regular. 2.? Medications: a.? Percocet 5/325 one to two p.o. every 4-6 hours p.r.n. pain. b.? Motrin 800 one p.o. every 8 hours p.r.n. pain. 3.? Followup in one week. Restrictions:? Pelvic rest for 6 weeks.? No heavy lifting.? May drive when pain free and no longer on narcotics. MTDD
== END 2023-10-07 14:30 | disposition home or self-care (01) | DRG 787 ==
PROVIDERS: Admitting Provider Obstetrics & Gynecology; Visit Provider Obstetrics & Gynecology
PROC: 10D00Z1 Extraction of Products of Conception, Low, Open Approach (ICD-10-PCS; CPT 59514; principal; 2023-10-04 07:30)
DX: O34.211 Maternal care for low transverse scar from previous cesarean delivery (principal); O98.32 Other infections with a predominantly sexual mode of transmission complicating childbirth; O99.334 Smoking (tobacco) complicating childbirth; F17.210 Nicotine dependence, cigarettes, uncomplicated; Z3A.39 39 weeks gestation of pregnancy; Z37.0 Single live birth; A60.09 Herpesviral infection of other urogenital tract; O16.5 Unspecified maternal hypertension, complicating the puerperium; O99.214 Obesity complicating childbirth; E66.01 Morbid (severe) obesity due to excess calories
CPT/HCPCS: 36415; 80307; 85025; 86850; 86900; 86901; 94667; 94668; 96372; 96374; 96375; 96376

== ENCOUNTER 2023-10-10 08:08 | Outpatient (OUT) | payer BC, MEDICAID, SELFPAY ==
--- OUTSIDE RECORDS SUMMARY | 2023-10-10 08:10 | XMS_ITS | CCD ---
Author Organization [facility] Care Team Providers Care Investment Officer Name Role Phone [facility] Primary Care Unavailable MAREK FLOOD Admitting Unavailable MAREK FLOOD Attending Unavailable HERIBERTO Rodriguez, MAREK Consulting Unavailable [facility] Primary Care Unavailable EB GRANT Admitting Unavailable EB GRANT Attending Unavailable EB GRANT Consulting Unavailable YOHANA UGALDE Unavailable Unavailable Primary Care Provider UnavailLATANYA Day Attending Unavailable LATANYA CHOU Attending Unavailable WENCESLAO FRASER Attending Unavailable LATANYA CHOU Attending Unavailable WENCESLAO FRASER Attending Unavailable WENCESLAO FRASER Attending Unavailable WENCESLAO FRASER Attending Unavailable WENCESLAO FRASER Attending Unavailable WENCESLAO FRASER Attending Unavailable Medications Current Medications Medication Drug Class(es) Dates Sig (Normalized) Sig (Original) [id number] 200 actuat albuterol 0.09 mg/actuat metered dose [...] 03-07-2022 Chronic Other aftercare (1 source) Other intermediate frame tender (current) drug therapy; Translations: [OTH USP CURRENT DRUG THERAPY] Onset: 09-05-2022 Episodic Other aftercare (1 source) [facility] (current) use of oral hypoglycemic drugs; Translations: [USP USE ORAL HYPOGLYCEMIC DX] Onset: 09-05-2022 Episodic [...] UA Negative Negative - 4(70) +++ mg/dL [facility] Blood, UA Negative Negative - 50 Aureliano/mcL [facility] Clarity, UA Clear [facility] Color, UA Yellow [facility] Glucose, UA Negative Negative - 2000(110) ++++ mg/dL [facility] Interpretation and review of laboratory results Abnormal [facility] Healthcare Ketones, UA Positive Negative - 160(16) ++++ mg/dL [facility] Comment on above: 15 mg Leukocytes, UA Trace Negative - 500+++ Amanda/mcL [facility] Nitrite, UA Negative Negative - Positive [facility] pH, UA 6.5 5 - 9 [facility] Protein, UA Positive Negative - 2000(20) ++++ mg/dL [facility] Comment on above: 30 mg Spec Grav, UA 1.025 1 - 1.03 [facility] Urobilinogen, UA 0.2 0.2 - 12 mg/dL [facility] Covid-19 PCR ([facility])on 02-20 SARS-CoV-2 (COVID-19) RNA HERIBERTO+probe Ql (Unsp spec) Not detected Normal NOT DETECTED [facility] Comment on above: Result Comment: [...] for this test is supported by the [place] of Health and Human Service's declaration that [...] By: #### C VDTBH #### [facility] [address] [place] [address] Dr. Rian Vega INFLUENZA A AND B [facility] 03[facility] BELOW Normal [facility] Comment on above: Result Comment: Nega tive for Flu A protein angiten. Infection due to Flu A cannot be ruled out. Flu A angiten in the sample may be below the detection limit of the test. Performed By: #### I NFLUAB #### [facility] [address] [place] [address] Dr. Rian Vega INFLUBNEG SEE BELOW Normal [facility] Comment on above: Result Comment: Nega tive for Flu B protein antigen. Infection due to Flu B cannot be ruled out. Flu B antigen in the sample may be below the detection limit of the test. Performed By: #### I NFLUAB #### [facility] [address] [address] [address] Rian Vega INFLUENZA A AG Negative Normal NEGATIVE SEE COMMENT [facility] Comment on above: Performed By: #### I NFLUAB #### [facility] [address] [address] [address] Rian Vega INFLUENZA B AG Negative Normal NEGATIVE SEE COMMENT [facility] Comment on above: Performed By: #### I NFLUAB #### [facility] [address] [address] [address] Rian Vega INTERNAL CONTROLS Within Normal Limits Normal Within Normal Limits [facility] Comment on above: Performed By: #### I NFLUAB #### [facility] [address] [place] [address] Dr. Rian Vega URon 03-06-2022 , QUAL Negative Normal NEGATIVE [facility] Comment on above: Performed By: #### P REGU #### [facility] [address] [place] [address] Dr. Rian Vega Vital Signs Date Time Vital Sign Value Performing Clinician Migueli lity 08-27-2023 08:58-0500 Body mass index (BMI) [Ratio] 50.02 kg/m2 Latanya GARCIA Work Phone: [facility] 08-27-2023 08:58-0500 Body weight 149.23 kg Latanya GARCIA Work Phone: [facility] 08-27-2023 08:58-0500 Diastolic blood pressure 74 mm[Hg] Latanya GARCIA Work Phone: [facility] 08-27-2023 08:58-0500 Systolic blood pressure 122 mm[Hg] Latanya GARCIA Work Phone: [facility] Healthcare Encounters Encounter Date Encounter Type Care Provider Facility Start: 10-02-2023 End: 10-02-2023 ambulatory WENCESLAO FRASER Not Available Start: 09-25-2023 End: 09-25-2023 ambulatory WENCESLAO MELECIO Not Available Start: 09-18-2023 End: 09-18-2023 ambulatory WENCESLAO MELECIO Not Available Start: 09-10-2023 End: 09-10-2023 ambulatory WENCESLAO MELECIO Not Available Start: 08-27-2023 End: 08-27-2023 ambulatory LATANYA CHOU Not Available Start: 08-27-2023 End: 08-27-2023 flow sheet Latanya GARCIA Work Phone: [facility] Comment on above: Third trimester preg catracho Start: 08-14-2023 End: 08-14-2023 ambulatory WENCESLAO MELECIO Not Available Start: 07-30-2023 End: 07-30-2023 ambulatory LATANYA CHOU Not Available Start: 07-12-2023 End: 07-12-2023 ambulatory WENCESLAO MELECIO Not Available Start: 06-06-2023 End: 06-06-2023 ambulatory LATANYA CHOU Not Available Start: 09-03-2022 End: 09-03-2022 ambulatory [facility] Facility:H1 Start: 03-06-2022 End: 03-06-2022 [facility] Facility:H1 Procedures Date Procedure Procedure Detail Performing Clinician Start: 08-27-2023 Urnls dip stick/tabl et rgnt non-auto w/o micrscp Latanya GARCIA Work Phone: Plan of Treatment Date Care Activity Detail Author Start: 09-10-2023 End: 09-10-2023 Patient encounter procedure 09/10/2023 10:10 AM EST Routine [facility] [address] [place] [address] Melecio, Wenceslao, DO [address] [place] [address] [facility] Payers Date Payer Category Payer Unknown BCBS BCBS xxxxxx [id number] 2022-Present [phone] [address] [place] [address] [id number] 2022 Unknown [id number] 2022 Medicaid [place] [id number] 2022-Present [address] [place] [address] [id number] 2022 Unknown [id number] 1995 Unknown [id number] 1993 Unknown [id number] 1993 Unknown [id number] [id number] 1993 Unknown [id number] [id number] 1993 Unknown [id number] [id number] 1993 Unknown [id number] [id number] 1993 Unknown [id number] [id number] 1993 Unknown [id number] [id number] 1993 Unknown [id number] [id number] 1993 Unknown [id number] [id number] 1993 Unknown [id number] [id number] 1959 Unknown [id number] Self-pay Self Pay [id number] Unknown Self Pay [id number] Social History Date Type Detail Facility Tobacco smoking stat [facility] Unknown if ever smoked [facility] Start: 1995 Sex Assigned At Female F [facility] Start: 05-09-2023 [facility] History [...] History: Diagnosis Date Asthma (CMS/HCC) Bipolar disorder (CMS/[facility]) Current every day smoker Genital herpes History of marijuana use HSV-2 (herpes simplex virus 2) infection Miscarriage 03/2019 Morbid obesity with BMI of 50.0-59.9, adult ([facility]) PCOS (polycystic ovarian syndrome) Vaginal [...] Procedure Laterality Date SECTION, CLASSIC 09/14/2012 elective VT TONSILLECTOMY & ADENOIDECTOMY AGE 10/> 11/27/2012 No [...] of: JOSE Rincon documented in this encounter [facility] Clinical Note 03-06-2022 Note Date & Type [...] UGALDE Date: 2022-03-06 01:53 [facility] Evaluation note Note Date & Type Note Facility Evaluation note [facility] Date & Type Note Facility Evaluation note Diagnosis Third trimester state, incidental documented in this encounter [facility] Summary Purpose Family History No Family History Records FoundNo Family History Records Found Advance Directives No Advanced Directives Records FoundNo Advanced Directives Records Found Additional Source Comments Goals (unrecognized section and content) Goals may be documented in a n alternate section INFORMATION SOURCE (unrecogn ized section and content) DATE CREATED AUTHOR 09/28/2022 [facility] DATE CREATED AUTHOR AUTHOR'S ORGANIZ ATION 10/03/2023 [facility] EPIC Reason for [...] BE BASED ON THE PRIMARY CLINICAL RECORDS. [facility]. provides no warranty or guarantee of the accuracy or completeness of information in this document.
--- NOTE | 2023-10-10 11:17 | PC.NURSE ---
Ursula and 6 day old Kathy arrive for follow up visit. Ursula's mother arrives with them. Ursula voices being tired, very difficult time at home due to baby being very fussy and not content after feds. States Pain meds don't help, i forget to take them and then I am super sore , frustrated I am not making milk just like last time , and I am not going to spend all my time pumping, when I want to spend it with my children . Emotions validated and options explored with feedings, breast feeding and formula. Pt has history of PCOS, no breast changes during , no supply for first child and pituitary tumor. Ursula VSS and assessment WNL, bilateral breast soft, no signs of milk production. Breasts wide spaced and tubular with stretch molina. No engorgement noted per pt. Incision clean and dry, steri strips intact. No redness, drainage or edema noted. 6 day old Kathy awake and alert. VSS and assessment WNL. Infant was started on formula yesterday evening and is tolerating well. Discussed feeding/supplementing with formula with every feed so that baby is able to gain weight and grow. Plan to place baby to breast first and then bottle feed infant formula 1-2 oz as needed. Mom voces understanding. Ursula has no interest in pumping to stimulate supply, is willing to add supplement to diet to help increase supply. Information given on best dietary changes to support milk production, and Mother love herbals or more milk with Moringa to support production. States has weight check planned with Dr Mindi Lujan at end of the week. Will call for further needs or questions. Leaves ambulatory with infant. No further concerns voiced.
[2023-10-10 11:19] VITALS: BP 121/81; PULSE 76; RESP 16; TEMP 36.7; O2SAT 97
== END 2023-10-10 11:39 | disposition home or self-care (01) ==
LOC: FBCO 08:09
PROVIDERS: Visit Provider Obstetrics & Gynecology
DX: Z39.2 Encounter for routine postpartum follow-up (principal)

== ENCOUNTER 2024-03-19 15:23 | Outpatient (OUT) | payer BC, MEDICAID, SELFPAY ==
--- NOTE | 2024-03-19 15:33 | MR_ITS ---
The [address] [address] Patient Name: THERESA SU MRN: [facility]:[id number] date: 1995 Sex: F Assigned Patient Location: MRI Current Patient Location: MRI Accession/Order Number: [id number] Exam Date: 03/19/2024 15:45 Report Date: 03/19/2024 17:09 At the request of: LUPE CAMPBELL Procedure: MR head/brain wo con MR head/brain wo con, 03/19/2024 3:45 PM EDT INDICATION: Intraventricular Cyst Of Brain COMPARISON: Prior MRI of brain dated 08/27/2019 TECHNIQUE: Multiplanar, multisequential MRI images of brain were obtained without injection of contrast. FINDINGS: This study is limited due to lack of injection of contrast because of patient's refusal. The cerebral sulci as well as ventricular system are appropriate for age. There is no restricted diffusion. There is a stable right parietal focal T12 FLAIR hyperintensity, nonspecific. r There is no intracranial mass, mass effect, midline shift, or large hemorrhage. There is a stable cystic structure within the occipital horn of the left lateral ventricle measuring 2.5 x 1 cm (transverse, AP). 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 Normal flow-void in the intracranial vessels is noted. Mucosal thickening within the right maxillary sinus and anterior ethmoidal cells is noted. The visualized portions of orbits, mastoid air cells as well as remainder of paranasal sinuses are unremarkable. MR/MR head/brain wo con IMPRESSION: No acute intracranial process is noted. 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 Electronically authenticated by: LANETTE LOPES Date: 03/19/2024 17:09
--- OUTSIDE RECORDS SUMMARY | 2024-03-19 15:45 | XMS_ITS | CCD ---
Author Organization [facility] Inform ion [facility] Care Team Providers Care Employee Communications Coordinator Name Role Phone [facility] Primary Care Unavailable HERIBERTO ., MAREK Admitting Unavailable HERIBERTO ., MAREK Attending Unavailable MAREK FLOOD Consulting Unavailable [facility] Primary Care Unavailable RUDY, EB Admitting Unavailable EB GRANT Attending Unavailable EB GRANT Consulting Unavailable YOHANA UGALDE Consulting Unavailable Unavailable Primary Care Provider UnavailKELLY Patel Referring Unavailable SERVICES, [facility] Primary Care Unava ilable KELLY YADAV Referring Unavailable SERVICES, [facility] Primary Care Unava ilable DO Azra Alexis Attending Provider [phone] JOSÉ ANTONIO, LATANYA Attending Unavailable JOSÉ ANTONIO, LATANYA Attending Unavailable EVELIO, WENCESLAO Attending Unavailable JOSÉ ANTONIO, LATANYA Attending Unavailable EVELIO, WENCESLAO Attending Unavailable EVELIO, WENCESLAO Attending Unavailable EVELIO, WENCESLAO Attending Unavailable EVELIO, WENCESLAO Attending Unavailable JOSÉ ANTONIO, LATANYA Attending Unavailable JOSÉ ANTONIO, LATANYA Attending Unavailable JOSÉ ANTONIO, LATANYA Attending Unavailable LUPE CAMPBELL Attending Unavailable AZRA ALEXIS Referring Unavailable EVELIO, WENCESLAO Attending Unavailable Mast - FHS, Douglas Attending Unavailable Mast - [facility], Douglas Admitting Unavailable Azra Alexis Consulting Unavailable Medications Current Medications Medication Drug Class(es) Dates Sig (Normalized) Sig (Original) [id number] 200 actuat albuterol 0.09 mg/actuat metered dose [...] 29-1) 29-1 MG tablet (2 sources) Start: 08-21-2023 Vit-Iron Carbonyl-FA (PNV Tabs 29-1) 29-1 MG tablet Indications: care, antepartum Take 1 tablet by mouth in the morning. 30 tablet 6 03/12/2023 Active Problems Active Problems Problem Classification Problem Date Documented Da te Episodic/Chronic Asthma (2 sources) Unspecified asthma, uncomplicated; Translations: [UNSPECIFIED ASTHMA UNCOMPLICATED] Onset: 03-07-2022 Chronic Other aftercare (1 source) Other supervisor intermediates (current) drug therapy; Translations: [OTH CUSTODIAL CURRENT DRUG THERAPY] Onset: 09-05-2022 Episodic Other aftercare (1 source) prison (current) use of oral hypoglycemic drugs; Translations: [CUSTODIAL USE ORAL HYPOGLYCEMIC DX] Onset: 09-05-2022 Episodic Other nervous system disorders (1 source) Paresthesia of skin; Translations: [Paresthesia of skin] Onset: 02-05-2024 Episodic Other and delivery including normal (2 sources) Third trimester ; Translations: [Encounter for supervision of normal , unspecified, third trimester] 08-22-2023 Episodic Spondylosis; intervertebral disc disorders; other back problems (2 sources) Pain in thoracic spine; Translations: [Dorsalgia, unspecified] Onset: 11-22-2023 Episodic Substance-related disorders (1 source) Nicotine dependence, [...] Results Test Name Value Interpretation Reference Range Peggy bentley Folateon 02-05-2024 Folate 12.4 ng/mL Normal >5.9 [facility] Comment on above: Result Comment: Mary Anne te reference range: >5.9 ng/ml The WHO technical consultation on folate and vitamin b12 deficiencies has determined that folate concentrations less than 4 ng/ml are considered deficient. PERFORMED BY: [place] [address] PATHOLOGIST BEHAVIORAL SERVICES TECH ELIDA DENISE M.D. Performed By: #### F OL, B12 #### [facility] [address] Folate [Mass/volume] in Seru m or PlasmaOrdered By: Azra Alexis on 02-05-2024 Folate [Mass/Vol] 12.4 ng/mL >5.9 [facility] Comment on above: Folate reference ran ge: >5.9 ng/mlThe WHO technical consultation on folate and vitamin [id number] has determined that folate concentrations lessthan 4 ng/ml are considered deficient. Vitamin B12 ser/plasOrdered By: Azra Alexis on 02-05-2024 Cobalamin (Vitamin B12) [Mass/Vol] 256 pg/mL Normal 180-914 [facility] Comment on above: Performed By: #### F OL, B12 #### [facility] [address] [place], [place] [id number] [facility] XR SPINE LUMBAR MIN 4 VWSon 11-23-2023 XR SPINE LUMBAR MIN 4 VWS XR SPINE LUMBAR MIN 4 VWS XR SPINE LUMBAR MIN 4 VWS CLINICAL HISTORY: Spine pain COMPARISON: None. FINDINGS: 5 lumbar type vertebrae. Vertebral body heights and alignment are maintained without significant spondylolisthesis. Trace anterior osteophytic changes at L4-L5, without significant intervertebral disc space narrowing. No convincing spondylolysis by technique. IMPRESSION: Minimal degenerative changes at L4-L5. Approved by Resident Ned Viera MD on 11/23/2023 8:09 AM Ranjit Hyman have personally reviewed the image(s) and agree with and/or edited the report Finalized by Ranjit Del Angel on 11/23/2023 8:35 AM Normal [facility] XR SPINE THORACIC 3 VWSon XR SPINE THORACIC 3 VWS XR SPINE THORACIC 3 VWS XR SPINE THORACIC 3 VWS CLINICAL INFORMATION: Acute midline thoracic back pain; Spine pain COMPARISON: None. IMPRESSION: * No fracture or loss of vertebral body height. Mild endplate degenerative changes with some physiologic wedging of the vertebral bodies. Finalized by Riley Briceno MD on 11/22/2023 1:45 PM Normal [facility] Urinalysis macro (dipstick) panel (U)Ordered By: Gabby Murillo on 08-27-2023 Bilirubin, UA Negative Negative - 4(70) +++ mg/dL [facility] Blood, UA Negative Negative - 50 Aureliano/mcL [facility] Clarity, UA Clear [facility] Healthnd re Color, UA Yellow [facility] Healthcar e Glucose, UA Negative Negative - 2000(110) ++++ mg/dL [facility] Interpretation and review of laboratory results Abnormal [facility] Ketones, UA Positive Negative - 160(16) ++++ mg/dL [facility] Comment on above: 15 mg Leukocytes, UA Trace Negative - 500+++ Amanda/mcL [facility] Nitrite, UA Negative Negative - Positive [facility] pH, UA 6.5 5 - 9 [facility] Protein, UA Positive Negative - 2000(20) ++++ mg/dL [facility] Comment on above: 30 mg Spec Grav, UA 1.025 1 - 1.03 [facility] Urobilinogen, UA 0.2 0.2 - 12 mg/dL [facility]on [facility]-20 SARS-CoV-2 (COVID-19) RNA HERIBERTO+probe Ql (Unsp spec) Not detected Normal NOT DETECTED [facility] Comment on above: Result Comment: [...] for this test is supported by the [place] of Health and Human Service's declaration that [...] longer be used). Performed By: #### C VDTB #### [facility] [address] [place] [address] Dr. Rian Vega INFLUENZA A AND B AGon 03-06 [facility] SEE BELOW Normal [facility] Comment on above: Result Comment: Nega tive for Flu A protein angiten. Infection due to Flu A cannot be ruled out. Flu A angiten in the sample may be below the detection limit of the test. Performed By: #### I NFLUAB #### [facility] [address] [place] [address] Dr. Rian [facility] SEE BELOW Normal [facility] Comment on above: Result Comment: Nega tive for Flu B protein antigen. Infection due to Flu B cannot be ruled out. Flu B antigen in the sample may be below the detection limit of the test. Performed By: #### I NFLUAB #### [facility] [address] [place] [address] Dr. Rian Vega INFLUENZA A AG Negative Normal NEGATIVE SEE COMMENT [facility] Comment on above: Performed By: #### I NFLUAB #### [facility] [address] [place] [address] Dr. Rian Vega INFLUENZA B AG Negative Normal NEGATIVE SEE COMMENT [facility] Comment on above: Performed By: #### I NFLUAB #### [facility] [address] [place] [address] Dr. Rian Vega INTERNAL CONTROLS Within Normal Limits Normal Wi thin Normal Limits [facility] Comment on above: Performed By: #### I NFLUAB #### [facility] [address] [place] [address] Dr. Rian Vega URon 03-06-2022 , QUAL Negative Normal NEGATIVE [facility] Comment on above: Performed By: #### P REGU #### [facility] [address] [address] [address] Rian Vega Vital Signs Date Time Vital Sign Value Performing Clinician Faci lity 08-27-2023 08:58-0500 Body mass index (BMI) [Ratio] 50.02 kg/m2 Latanya GARCIA Work Phone: [facility] 08-27-2023 08:58-0500 Body weight 149.23 kg Latanya GARCIA Work Phone: [facility] 08-27-2023 08:58-0500 Diastolic blood pressure 74 mm[Hg] Latanya GARCIA Work Phone: [facility] 08-27-2023 08:58-0500 Systolic blood pressure 122 mm[Hg] Latanya GARCIA Work Phone: [facility] Healthcare Encounters Encounter Date Encounter Type Care Provider Facility Start: 03-05-2024 End: 03-05-2024 ambulatory LUPE CAMPBELL Not Available Start: 03-04-2024 End: 03-04-2024 ambulatory LATANYA CHOU Not Available Start: 02-05-2024 End: 02-05-2024 ambulatory Douglas Mast - [facility] Work Phone: Start: 02-05-2024 End: 02-05-2024 Departed Referred DO Azra Alexis Work Phone: [facility] Start: 11-22-2023 End: 11-23-2023 ambulatory KELLY YADAV [facility] Start: 11-13-2023 End: 11-13-2023 ambulatory LATANYA CHOU Not Available Start: 10-09-2023 End: 10-09-2023 ambulatory LATANYA JOSÉ ANTONIO Not Available Start: 10-02-2023 End: 10-02-2023 ambulatory WENCESLAO EVELIO Not Available Start: 09-25-2023 End: 09-25-2023 ambulatory WENCESLAO EVELIO Not Available Start: 09-18-2023 End: 09-18-2023 ambulatory WENCESLAO EVELIO Not Available Start: 09-10-2023 End: 09-10-2023 ambulatory WENCESLAO EVELIO Not Available Start: 08-27-2023 End: 08-27-2023 flow sheet Latanya GARCIA Work Phone: [facility] Comment on above: Third trimester preg catracho Start: 08-27-2023 End: 08-27-2023 ambulatory LATANYA CHOU Not Available Start: 08-14-2023 End: 08-14-2023 ambulatory WENCESLAO EVELIO Not Available Start: 07-30-2023 End: 07-30-2023 ambulatory LATANYA CHOU Not Available Start: 07-12-2023 End: 07-12-2023 ambulatory WENCESLAO EVELIO Not Available Start: 06-06-2023 End: 06-06-2023 ambulatory LATANYA CHOU Not Available Start: 09-03-2022 End: 09-03-2022 [facility] Facility:[facility] Start: 03-06-2022 End: 03-06-2022 [facility] Facility:[facility] Procedures Date Procedure Procedure Detail Performing Clinician Start: 08-27-2023 Urnls dip stick/tabl et rgnt non-auto w/o micrscp Latanya GARCIA Work Phone: Plan of Treatment Date Care Activity Detail Author Start: 09-10-2023 End: 09-10-2023 Patient encounter procedure 09/10/2023 10:10 AM EST Routine [facility] [address] [place] [address] Wenceslao Majano, DO [address] [place] [address] [facility] Payers Date Payer Category Payer Self-pay [id number] 2022 Unknown BCBS BCBS [id number] 2022-[facility] [phone] [address] [place] [address] [id number] 2022 Unknown [id number] 2022 Medicaid ANTHEM BCBS [facility] ANTHEM BCBS [place]ICA[place] [id number] 2022-Present [address] [place] [address] [id number] 2022 Unknown [id number] 1993 Unknown [id number] 2.16.840.1.657500.3.579.2.593 1993 Unknown [id number] 2.16.840.1.068062.3.579.2.593 1993 Unknown [id number] 2.16.840.1.981305.3.579.2.1286 1993 Unknown [id number] 2.16.840.1.398111.3.579.2.1286 1993 Unknown [id number] 2.16.840.1.786055.3.579.2.1259 1993 Unknown [id number] 2.16.840.1.383307.3.579.2.1259 1993 Unknown [id number] 2.16.840.1.051089.3.579.2.1259 1993 Unknown [id number] 2.16.840.1.046489.3.579.2.1259 1993 Unknown [id number] 2.16.840.1.788986.3.579.2.9 1993 Unknown [id number] 2.16.840.1.158834.3.579.2.1259 1993 Unknown [id number] 2.16.840.1.363231.3.579.2.1259 1993 Unknown [id number] 2.16.840.1.193705.3.579.2.1258 1993 Unknown [id number] 2.16.840.1.681925.3.579.2.9 1993 Unknown [id number] 2.16.840.1.943136.3.579.2.1258 1993 Unknown [id number] 2.16.840.1.382021.3.579.2.1258 1993 Unknown [id number] 2.16.840.1.150862.3.579.2.1258 1993 Unknown [id number] 2.16.840.1.096098.3.579.2.9 1959 Unknown [id number] Unknown [id number] Unknown [id number] 2.16.840.1.398369.3.579.2.531 Social History Date Type Detail Facility [facility] Start: 1995 Sex Assigned At Female F [facility] Start: 05-09-2023 [facility] daily [facility] History of [...] Problems Past Medical History: Diagnosis Date Asthma ([facility]) Bipolar disorder ([facility]) Current every day smoker Genital herpes History of marijuana use HSV-2 (herpes simplex virus 2) infection Miscarriage 03/2019 Morbid obesity with BMI of 50.0-59.9, adult ([facility]) PCOS (polycystic ovarian syndrome) Vaginal burning [...] Procedure Laterality Date SECTION, CLASSIC 09/14/2012 elective [place] TONSILLECTOMY & ADENOIDECTOMY AGE 10/> 11/27/2012 No [...] of: JOSE Rincon documented in this encounter [facility] Clinical Note 03-06-2022 Note Date [...] UGALDE Date: 2022-03-06 01:53 [facility] Evaluation note Note Date & Type Note Facility Evaluation note No assessment information availa [facility] Evaluation note Note Date & Type Note Facility Evaluation note Diagnosis Third trimester state, incidental documented in this encounter [facility] Summary Purpose Family History No Family History Records Found Relationship Condition Age at Onset Recorded Date/T jerald brother Autistic disorder Unknown father History of stroke Unknown Hypertension Unknown Diabetes mellitus Unknown mother Diabetes mellitus Unknown Advance Directives No Advanced Directives Records Found Advance Directive Response Recorded Date/ Time Advance Directives No June 2:39pm Additional Source Comments Goals (unrecognized section and content) Goals may be documented in a n alternate sectionGoals may be documented in an alternate section INFORMATION SOURCE (unrecogn ized section and content) DATE CREATED AUTHOR 09/28/2022 [facility] DATE CREATED AUTHOR AUTHOR'S ORGANIZ ATION 11/23/2023 [facility] DATE CREATED AUTHOR AUTHOR'S ORGANIZ ATION 03/06/2024 [facility] EPIC DATE CREATED AUTHOR AUTHOR'S ORGANIZ ATION 03/08/2024 [facility] Reason for Visit (unrecogniz ed section and content) Reason Comments Routine Visit Care Teams (unrecognized sec tion and content) Team Status: Inactive Member Role Status Dates Azra Alexis DO RES Attending Provider Active Start: February 05, 2024 End: February 05, 2024 FOR RECORDS PERTAINING TO PATIENTS WHO ARE [...] [facility] [employer] [facility]. provides no warranty or guarantee of the accuracy or completeness of information in this document.
[2024-03-19 16:46] LABS: HCG Qualitative Urine* NEGATIVE (NEGATIVE); Internal Control Within Normal Limits
== END 2024-03-19 15:24 | disposition home or self-care (01) ==
PROVIDERS: Visit Provider Psychiatry & Neurology Neurology
DX: G93.0 Cerebral cysts (principal)
CPT/HCPCS: 70551; 84703